=== PATIENT | male | born 1960 | race Caucasian/White ===

== ENCOUNTER → 2019-11-13 09:04 | Outpatient (CLI) | payer BC, SELFPAY ==
--- NOTE | ~2019-11-13 | CT_ITS ---
EXAMINATION: CT abdomen pelvis wo con DATE: 11/13/2019 09:17 INDICATION: Intra-abdominal and pelvic swelling, mass, and lump, unspecified. TECHNIQUE: Computed tomography (CT) of the abdomen and pelvis was performed without intravenous contr ast. Automated exposure control and iterative reconstruction technique were employed. The dose-length product was 1129.17 mGy-cm. COMPARISON: None. FINDINGS: The visualized portions of the lung bases demonstrate minimal atelectasis. There is a 4 mm nodule in lingula, likely benign. No pleural effusion. The heart size is normal. No pericardial effus ion. The liver is normal. There is a calcification in the spleen, consistent with old granulomatous d isease. There are gallstones in the gallbladder, which is normal in size. There are changes of gastri c bypass procedure. The pancreas, adrenal glands, and right kidney are normal. There is a 3.9 cm cyst in left kidney. There is no urolithiasis. There is diffuse bladder wall thickening, likely secondary to chronic outlet obstruction from the severely enlarged prostate. There is diverticulosis of the co frank without evidence of diverticulitis. There are no dilated loops of bowel. There are no pathologica lly enlarged lymph nodes. There is prominent fat in the inguinal canals that may be small hernias. Th ere is no free intraperitoneal fluid. There is moderate thoracic spondylosis and mild lumbar spondylo sis. IMPRESSION: 1. Prominent fat in the inguinal canals, which may be small hernias. 2. Cholelithiasis. Reviewed, dictated and finalized at location A.
== END ==
PROVIDERS: PCP Internal Medicine; Visit Provider Surgery Plastic and Reconstructive Surgery
DX: R19.00 Intra-abdominal and pelvic swelling, mass and lump, unspecified site (principal); K80.20 Calculus of gallbladder without cholecystitis without obstruction
CPT/HCPCS: 74176

== ENCOUNTER 2020-01-06 08:20 | Outpatient (CLI) | payer OTHER, SELFPAY ==
--- NOTE | 2020-01-06 08:25 | ECG_ITS ---
Measurements Intervals [place] Rate: 56 P: 30 HI: 162 QRS: 3 QRSD: 85 T: 42 QT: 422 QTc: 409 Interpretive Statements SINUS BRADYCARDIA BORDERLINE R WAVE PROGRESSION, ANTERIOR LEADS BORDERLINE ECG Electronically Signed On 01-06-2020 9:49:51 CUSTOMER DEVELOPMENT REPRESENTATIVE by Greyson Hicks D.O.
[2020-01-06 09:07] LABS: Hematocrit 44.9 % (42.0-52.0); Hemoglobin 14.6 g/dL (14.0-18.0)
[2020-01-06 09:15] LABS: Albumin Level 4.6 g/dL (3.5-5.1)
[2020-01-06 09:41] LABS: Iron 90 ug/dL (49-181)
[2020-01-06 09:51] LABS: Prealbumin 27.7 mg/dL (17.6-36.0)
== END 2020-01-06 08:21 | disposition home or self-care (01) ==
LOC: ANHSURGERY 08:25
PROVIDERS: Anesthesiology; PCP Internal Medicine; Visit Provider Surgery Plastic and Reconstructive Surgery
DX: Z01.818 Encounter for other preprocedural examination (principal); Z41.1 Encounter for cosmetic surgery
CPT/HCPCS: 36415; 82040; 83540; 84134; 84425; 85014; 85018; 93005

== ENCOUNTER 2020-01-10 01:25 | Outpatient (CLI) | payer OTHER, SELFPAY ==
[2020-01-11 14:16] LABS: SARS-CoV-2 RNA PCR Negative
== END 2020-01-10 01:26 | disposition home or self-care (01) ==
LOC: ANHCOVIDDT 01:25
PROVIDERS: PCP Internal Medicine; Visit Provider Surgery Plastic and Reconstructive Surgery
DX: Z01.818 Encounter for other preprocedural examination (principal); Z20.828 Contact with and (suspected) exposure to other viral communicable diseases
CPT/HCPCS: 87635; C9803; U0003

== ENCOUNTER 2020-01-13 00:44 | Day surgery (SDC) | payer OTHER, SELFPAY ==
[2019-12-31 15:38] VITALS: BMI 27.9
[2020-01-13] VITALS (9 sets, daily range): BP systolic 119–178; BP diastolic 67–88; PULSE 58–81; RESP 13–18; TEMP 36.2–36.4; O2SAT 99–100
[2020-01-13] MEDS: LACTATED RINGERS 1,000 ML 30 ML IV CONT ×2 (07:20→15:52)
[2020-01-13 07:27] LABS: Urine Cotinine NEGATIVE
--- NOTE | 2020-01-13 08:50 | WPDHPUPDATE1 ---
History and Physical Update Update Date/Time: 01/13/20 08:50 History and Physical has been reviewed, including an updated exam of the patient. There are NO changes in the patient's condition. Risks, benefits, and alternatives have been discussed and questions answered. Patient agrees to proceed with procedure.
--- NOTE | 2020-01-13 08:56 | WPDANESEPPF ---
Anes - Initial Pre Proc Eval Procedure: Operation Date: 01/13/20 09:00 Proposed Procedures p Bilateral Brachioplasty - Eric Macdonald MD s Bilateral Treatment of Gynecomastia - Eric Macdonald MD s Chana-De- Lis Abdominoplasty - Eric Macdonald MD Date/Time: 01/13/20 08:56 Surgeon: Eric Macdonald MD Pre Op Diagnosis: Skin Laxity, Patient Data Age: 59 Gender: M Height: 6 ft 5 in Weight: 108.7 kg Last Vital Signs Temp 97.6 F 01/13/20 07:07 Pulse 58 L 01/13/20 07:07 Resp 18 01/13/20 07:07 BP 119/75 01/13/20 07:07 Pulse Ox 100 01/13/20 07:07 Allergies Allergy/AdvReac Type Severity Reaction Status Date / Time No Known Allergies Allergy Verified 01/13/20 07:27 Home Medications Medication Instructions Recorded Confirmed Type sertraline 100 mg tablet 100 mg PO DAILY 11/05/19 01/13/20 History carisoprodol 350 mg tablet 350 mg PO TID PRN #21 tablet 12/30/19 01/13/20 Rx docusate sodium 100 mg capsule 100 mg PO DAILY #14 cap 12/30/19 01/13/20 Rx ondansetron HCl 4 mg tablet 4 mg PO Q8H #28 tablet 12/30/19 01/13/20 Rx oxycodone-acetaminophen 5 mg-325 1 tablet PO Q6H PRN #15 tablet 12/30/19 01/13/20 Rx mg tablet Laboratory Tests 01/13/20 07:12 Cotinine Negative Patient hx anesthesia problems: none Family hx anesthesia problems: none ON LICENSE OF [facility] Past Medical History Medical History Anxiety Sleep apnea Surgical History Surgical History History of gastric bypass Social History Social History Smoking status: Never smoker Alcohol intake: current Substance use: never Living arrangements: alone Gender identity (if verbalized by the patient): Male Sexual Orientation (if Verbalized by the Patient): Straight or Heterosexual Spiritual care concerns: No Anes - Eval Final PreProcedure Day of Procedure 01/13/20 08:56 Patient weight: overweight Heart: regular rate and rhythm Lungs: clear to auscultation Airway: Mallampati scale class II Neurological: alert and oriented Last oral intake: >/= 8 hours ASA classification: III Emergent: no Anesthetic plan: proceed Anesthesia type and monitoring: general ETT and standard monitoring Informed Consent: The patient's anesthetic plan and its attendant risks and benefits were discussed with the patient/family/POA. Questions were solicited and answers provided to the satisfaction of the patient/family/POA.
--- NOTE | 2020-01-13 09:10 | PM.PROC ---
Procedure Note - Detailed Date of procedure: 01/13/20 Pre-op diagnosis: Skin Laxity, Post-op diagnosis: same Procedure performed: 1. Bilateral Brachioplasty 2. Bilateral Mastectomy for gynecomastia / thoracoplasty boomerang pattern 3. Sqoxj-of-wln abdominoplasty Description of procedure: Risks, benefits, alternatives were discussed in extensive detail. I want him to be very realistic about the risks involved as well as expectations. He would like proceed in go home rather than stay overnight. We discussed the care at home. We discussed what monitor for. We discussed that he can call with any questions or concerns and went to proceed to the emergency room/ dial 911. We discussed DVT prophylaxis and he would like to use ambulation at home. This was outlined extensively to make sure he was well informed. All questions were answered to his satisfaction today. Consent obtained. He was marked in the preoperative holding area. He did pass out during the markings however had no fall we were able to gently control him to the ground. We were able condition he felt well following this event. Was taken to the operating room placed supine on the operating room table. Anesthesia provided by anesthesiology and prepped and draped in a standard sterile fashion. Surgical time-out was taken. I proceeded with the arms 1st. Stab incision was made. I used tumescent solution. Using a 4 mm basket cannula completed suction lipectomy of the planned resection. Ten blade was used to make the incision in a strip avulsion technique from proximal to distal and removed the tissue stapling as we went to make sure tension-free closure. This was closed using 2-0 Vicryl followed by 3-0 strata fix and 3-0 chromic. We then proceeded the chest. This was tumesced with tumescent solution after making stab incisions 11 blade. I verified this would close tension-free. Ten blade used to make incision. The complete in you dissection removing this intervening tissue. Discontinuing the undermined inferiorly just what was necessary for closure. Lateral chest has some space so bilateral 15 ying drains were placed and sutured into place with 4-0 Nylon. This was closed using 2-0 Vicryl followed by 3-0 strata fix in a running subcuticular 4-0 Monocryl. I placed him in a flexed position to verify the upper and lower markings would reach. I then placed supine. A thorough abdominal examination was completed. Stab incisions were made and used tumescent solution. A 10 blade was used to make the upper incision as well as vertical incision. I continued dissection down to the level of fascia. No undermining was needed or completed. I then again flexed the bed to verify the upper skin flap would reach the lower markings without tension. Once verified I placed supine once again and a 10 blade used to make the lower incision. I elevated up to level the umbilicus and left the umbilicus intact on a well-vascularized stalk. The intervening tissue was removed. A 2 mm blunt cannula and Exparel which was mixed 20 cc in 100 cc for a total volume of 120 cc I injected deep to the fascia bilaterally as well as along the incision lines. I plicated the diastasis recti using 0 PDO stratafix barbed suture. This was in 2 separate layers using 2 separate sutures as well. I repaired around the umbilicus leaving plenty of room for well-vascularized stalk of the umbilicus with 2-0 PDS. The patient was flexed and starting from superior to inferior began plication using 2-0 Vicryl to obliterate all space in a standard progressive tension fashion. At the umbilicus I marked out the location of the skin and inset this with 3-0 Monocryl and 4-0 nylon. I continued the remainder of the plication using 2-0 Vicryl until I reached my lower planned scar line. I trimmed any excess skin of the upper flap making sure this was a tension-free closure. I then approximated using a 3 point suture with 2-0 Vicryl followed by
[2020-01-13] MEDS: ceFAZolin 2 GM/D5W 50 ML 2 GM/50 ML BAG IVPB (09:13)
--- NOTE | 2020-01-13 10:45 | SUR.OPER ---
Consult to Radiologist Dr Russell per Dr Macdonald to review abdominal CT scan of 11-13-[address] Macdonald request prior to start. Consult via direct telephone. Consult at [phone].
[2020-01-13] MEDS: ceFAZolin SODIUM 1 GM VIAL IV PUSH (13:15)
[2020-01-13] MEDS: oxyCODONE HCL (*CRX) 5 MG TAB IR PO (16:44)
== END 2020-01-13 18:18 | disposition home or self-care (01) ==
PROVIDERS: PCP Internal Medicine; Visit Provider Surgery Plastic and Reconstructive Surgery
PROC: (CPT 15836; principal; 2020-01-13 09:00)
PROC: (CPT 19300; 2020-01-13 09:00)
PROC: (CPT 15830; 2020-01-13 09:00)
DX: Z41.1 Encounter for cosmetic surgery (principal); L57.4 Cutis laxa senilis; F41.9 Anxiety disorder, unspecified; G47.30 Sleep apnea, unspecified; Z79.899 Other long term (current) drug therapy
CPT/HCPCS: 15830; 15847; 15836; 19300; 80307; A9270; C9290; J0171; J0330; J0690; J1100; J1170; J2250; J2370; J2405; J2704; J2710; J3010; J7120

== ENCOUNTER → 2020-04-17 01:12 | Outpatient (CLI) | payer OTHER, SELFPAY ==
[2020-04-17 19:42] LABS: SARS-CoV-2 RNA PCR Negative
== END ==
PROVIDERS: PCP Internal Medicine; Visit Provider Surgery Plastic and Reconstructive Surgery
DX: Z01.812 Encounter for preprocedural laboratory examination (principal); Z20.822 Contact with and (suspected) exposure to COVID-19
CPT/HCPCS: C9803; U0003; U0005

== ENCOUNTER 2020-04-20 01:11 | Day surgery (SDC) | payer OTHER, SELFPAY ==
[2020-04-12 15:49] VITALS: BMI 27.9
--- NOTE | 2020-04-19 11:52 | WPDANESEPPF ---
Anes - Initial Pre Proc Eval Procedure: Operation Date: 04/20/20 08:30 Proposed Procedures p Posterior Body Lift - Eric Macdonald MD s Medial Thigh Lift - Eric Macdonald MD Date/Time: 04/19/20 11:52 Surgeon: Eric Macdonald MD Pre Op Diagnosis: Skin Laxity Patient Data Age: 59 Gender: M Height: 6 ft 5 in Weight: 107 kg Allergies Allergy/AdvReac Type Severity Reaction Status Date / Time No Known Allergies Allergy Verified 03/01/20 13:06 Home Medications Medication Instructions Recorded Confirmed Type sertraline 100 mg tablet 100 mg PO DAILY 11/05/19 04/20/20 History docusate sodium 100 mg capsule 100 mg PO DAILY #14 cap 03/29/20 04/12/20 Rx ondansetron HCl 4 mg tablet 4 mg PO Q8H #28 tablet 03/29/20 04/12/20 Rx oxycodone-acetaminophen 5 mg-325 1 tablet PO Q6H PRN #15 tablet 03/29/20 04/12/20 Rx mg tablet tamsulosin 0.4 mg PO DAILY 04/12/20 04/20/20 History Patient hx anesthesia problems: none Family hx anesthesia problems: none [facility] Past Medical History Medical History Anxiety Sleep apnea Surgical History Surgical History History of gastric bypass Social History Social History Smoking status: Never smoker Alcohol intake: current Substance use: never Living arrangements: alone Gender identity (if verbalized by the patient): Male Sexual Orientation (if Verbalized by the Patient): Straight or Heterosexual Spiritual care concerns: No Anes - Eval Final PreProcedure Day of Procedure 04/19/20 11:52 Patient weight: overweight Heart: regular rate and rhythm Lungs: clear to auscultation Airway: Mallampati scale class III Neurological: alert and oriented Last oral intake: >/= 8 hours ASA classification: III Emergent: no Anesthetic plan: proceed Anesthesia type and monitoring: general ETT and standard monitoring Informed Consent: The patient's anesthetic plan and its attendant risks and benefits were discussed with the patient/family/POA. Questions were solicited and answers provided to the satisfaction of the patient/family/POA.
[2020-04-20] VITALS (10 sets, daily range): BP systolic 118–139; BP diastolic 73–91; PULSE 67–90; RESP 14–20; TEMP 36.2–37.2; O2SAT 97–100
--- NOTE | 2020-04-20 06:51 | WPDHPUPDATE1 ---
History and Physical Update Update Date/Time: 04/20/20 06:51 History and Physical has been reviewed, including an updated exam of the patient. There are NO changes in the patient's condition. Risks, benefits, and alternatives have been discussed and questions answered. Patient agrees to proceed with procedure.
--- NOTE | 2020-04-20 07:11 | PM.PROC ---
Procedure Note - Detailed Date of procedure: 04/20/20 Pre-op diagnosis: Skin Laxity Post-op diagnosis: same Procedure performed: 1. Bilateral medial thigh lift 2. Posterior body lift Description of procedure: Preoperatively the risks, benefits, alternatives were discussed. All questions answered to his satisfaction. I explained previous success does not guarantee future success. This is unique procedure with unique risks and unique outcomes. Consent obtained. He was marked in the preoperative holding area with his verification. He was taken the operating room placed supine on the operating room table. Anesthesia provided by anesthesiology and prepped and draped in a standard sterile fashion. Surgical time-out was taken. He was placed in frog-leg position. I tumesced with a tumescent solution waited for adequate time for hemostasis. Using suction lipectomy based on S.A.F.E. technique using a 4 mm basket cannula I completed suction lipectomy of the planned resection site. This was a strip avulsion technique. This was cut as you go stapling as we will. It was closed using 2-0 Vicryl followed by 3-0 strata fix followed by running subcuticular 4-0 Monocryl and Steri-Strips. Dressings were placed. He was placed in a prone position with care taken to protect all bony prominences. I tumesced with tumescent solution. Used 4mm basket cannula for discontinuous undermining. A 10 blade used to make the upper incision. Dissection was continued down and elevated just was necessary in order to provide good tension-free closure. I did leave volume over the gluteal region trying to maximize his gluteal volume. I obliterate all space using 2-0 Vicryl this is followed by 3-0 strata fix in a running subcuticular 4-0 Monocryl and tissue glue. Dressings were placed. She was woken taken the PACU without difficulty. All instrument sponge counts were correct at the end of the case. Anesthesia: GETA Surgeon: Eric Macdonald MD Estimated blood loss (mL): 100 Drains: No Packing: No Pathology: none sent Complications: No immediate complications Condition: stable Disposition: PACU
[2020-04-20] MEDS: LACTATED RINGERS 1,000 ML 30 ML IV CONT ×2 (07:33→14:57)
[2020-04-20 07:37] LABS: Urine Cotinine NEGATIVE
[2020-04-20] MEDS: ceFAZolin 2 GM/D5W 50 ML 2 GM/50 ML BAG IVPB (08:46)
[2020-04-20] MEDS: ceFAZolin SODIUM 1 GM VIAL IV PUSH (13:57)
--- NOTE | 2020-04-20 14:17 | SUR.OPER ---
EBL:50cc, urine:1400cc
== END 2020-04-20 17:40 | disposition home or self-care (01) ==
PROVIDERS: PCP Internal Medicine; Visit Provider Surgery Plastic and Reconstructive Surgery
PROC: (CPT 15833; principal; 2020-04-20 08:30)
PROC: (CPT 15832; 2020-04-20 08:30)
DX: Z41.1 Encounter for cosmetic surgery (principal); L57.4 Cutis laxa senilis; F41.9 Anxiety disorder, unspecified; G47.30 Sleep apnea, unspecified; Z79.899 Other long term (current) drug therapy; Z98.84 Bariatric surgery status
CPT/HCPCS: 15833; 15839; 80307; J0171; J0330; J0690; J1100; J1170; J2250; J2405; J2704; J3010; J7120

== ENCOUNTER 2020-11-05 01:53 | Day surgery (SDC) | payer BC, SELFPAY ==
[2020-10-27 13:59] VITALS: BMI 29.7
[2020-11-05 08:58] VITALS: BP 123/83; PULSE 62; RESP 18; TEMP 36.6; O2SAT 99; BMI 30.2
--- NOTE | 2020-11-05 09:06 | P.CONGI_ITS ---
Assessment and Plan Assessment and plan (1) Encounter for screening colonoscopy: Code(s): Z12.11 - Encounter for screening for malignant neoplasm of colon Status: Acute Assessment and Plan: Patient presents for screening colonoscopy. Appears to be at average risk for colon polyps. GI Consult Note Consult date/time: 11/05/20 09:06 HPI: Donnie Cates Jr. is a 60 year old male Presents for neoplasia screening. Patient reports his current weight appetite bowel movements are norm al. He denies abdominal pain. Bowel habits are unremarkable. He does a spot occasional blood. He reports previous colonoscopy more than 10 years ago revealed Internal hemorrhoids. Family history is noncontributory. Patient presents today for screening colonoscopy. Patient has a history of gastric bypass weight loss surgery in the past. He has had significant weight loss had several surgeries to tightness scan. Review of Systems Review of Systems: All systems reviewed & are unremarkable except as noted in HPI and below PMFSH Past Medical History Medical History Anxiety Sleep apnea Surgical History Surgical History History of gastric bypass Social History Social History Smoking status: Never smoker Alcohol intake: current Drinks per week: 2 Substance use: never Substance use type: does not use Living arrangements: with family Gender identity (if verbalized by the patient): Male Sexual Orientation (if Verbalized by the Patient): Straight or Heterosexual Spiritual care concerns: No Meds Home Medications and Allergies Home Medications Medication Instructions Recorded Confirmed Type sertraline 100 mg tablet 100 mg PO DAILY 11/05/19 10/27/20 History tamsulosin 0.4 mg PO DAILY 04/12/20 10/27/20 History ferrous sulfate 27 mg PO DAILY 10/27/20 10/27/20 History omeprazole 40 mg PO DAILY 10/27/20 10/27/20 History Allergies Allergy/AdvReac Type Severity Reaction Status Date / Time No Known Allergies Allergy Verified 11/05/20 08:57 Vital Signs Vital Signs - 24 hr 11/05/20 08:58 Temperature 98 F Pulse Rate 62 Respiratory Rate 18 Blood Pressure 123/83 Pulse Oximetry 99 Exam Narrative: p hysical exam reveals patient be alert. Vital signs are stable. HEENT exam is unremarkable. Patient is anicteric. Lungs are clear to auscultation and percussion. Heart is without murmur or extra sounds. Abdominal exam bowel sounds are present soft nontender with no organomegaly. Digital external rectal exam is normal.
--- NOTE | 2020-11-05 09:11 | WPDANESEPPF ---
Anes - Initial Pre Proc Eval Procedure: Operation Date: 11/05/20 10:00 Proposed Procedures p Screening Colonoscopy - Amari Ramos MD Date/Time: 11/05/20 09:11 Surgeon: Amari Ramos MD Pre Op Diagnosis: neoplasm screening Patient Data Age: 60 Gender: M Height: 1.96 m Weight: 115.4 kg Last Vital Signs Temp 98 F 11/05/20 08:58 Pulse 62 11/05/20 08:58 Resp 18 11/05/20 08:58 BP 123/83 11/05/20 08:58 Pulse Ox 99 11/05/20 08:58 Allergies Allergy/AdvReac Type Severity Reaction Status Date / Time No Known Allergies Allergy Verified 11/05/20 08:57 Home Medications Medication Instructions Recorded Confirmed Type sertraline 100 mg tablet 100 mg PO DAILY 11/05/19 10/27/20 History tamsulosin 0.4 mg PO DAILY 04/12/20 10/27/20 History ferrous sulfate 27 mg PO DAILY 10/27/20 10/27/20 History omeprazole 40 mg PO DAILY 10/27/20 10/27/20 History Patient hx anesthesia problems: none Family hx anesthesia problems: none [facility] Past Medical History Medical History Anxiety Sleep apnea Surgical History Surgical History History of gastric bypass Social History Social History Smoking status: Never smoker Alcohol intake: current Drinks per week: 2 Substance use: never Substance use type: does not use Living arrangements: with family Gender identity (if verbalized by the patient): Male Sexual Orientation (if Verbalized by the Patient): Straight or Heterosexual Spiritual care concerns: No Anes - Eval Final PreProcedure Day of Procedure 11/05/20 09:11 Patient weight: obese Heart: regular rate and rhythm Lungs: clear to auscultation Airway: Mallampati scale class II Neurological: alert and oriented Last oral intake: >/= 8 hours ASA classification: III Emergent: no Anesthetic plan: proceed Anesthesia type and monitoring: general GIVS and standard monitoring Informed Consent: The patient's anesthetic plan and its attendant risks and benefits were discussed with the patient/family/POA. Questions were solicited and answers provided to the satisfaction of the patient/family/POA.
[2020-11-05] MEDS: LACTATED RINGERS 1,000 ML 150 ML IV CONT (09:15)
[2020-11-05 10:15] VITALS: BP 107/60; PULSE 88; RESP 18; O2SAT 99
[2020-11-05 10:25] VITALS: BP 118/79; PULSE 64; RESP 18; O2SAT 99
[2020-11-05 10:35] VITALS: BP 115/76; PULSE 61; RESP 18; O2SAT 99
== END 2020-11-05 10:50 | disposition home or self-care (01) ==
PROVIDERS: PCP Internal Medicine; Visit Provider Internal Medicine Gastroenterology
PROC: 0DJD8ZZ Inspection of Lower Intestinal Tract, Via Natural or Artificial Opening Endoscopic (ICD-10-PCS; CPT 45378; principal; 2020-11-05 10:00)
DX: Z12.11 Encounter for screening for malignant neoplasm of colon (principal); G47.30 Sleep apnea, unspecified; F41.9 Anxiety disorder, unspecified; Z98.84 Bariatric surgery status; E66.9 Obesity, unspecified; Z68.30 Body mass index [BMI] 30.0-30.9, adult
CPT/HCPCS: 45378; J2001; J2704; J7120

== ENCOUNTER 2024-07-04 07:14 | Emergency (ER) | payer OTHER, SELFPAY ==
--- NOTE | ~2024-07-04 | CT_ITS ---
EXAMINATION: CT abdomen pelvis w con DATE: 07/04/2024 08:08 INDICATION: Epigastric pain TECHNIQUE: Computed tomography (CT) of the abdomen and pelvis was performed with 100 mL Omnipaque-350 intravenous contrast. Automated exposure control and iterative reconstruction technique were employe d. The dose-length product was 1830.09 mGy-cm. COMPARISON: None FINDINGS: Dependent atelectasis in bilateral lower lobes. Heart size is normal. Atherosclerotic coronary artery calcification. No pericardial or pleural effusion. Postoperative change of prior Brendan-en-Y gastric b ypass procedure. There are multiple gallstones at the neck of the gallbladder. The gallbladder is dil ated to 6.4 cm with surrounding inflammatory stranding consistent with acute cholecystitis. Liver, sp hector, pancreas, bilateral adrenal glands are normal. 3.5 cm exophytic left renal cyst. Bilateral nono bstructing nephrolithiasis with couple's 4-5 mm stones at the lower pole of the left kidney and a 2 m m stone at the upper pole of the right kidney. There is extensive diverticulosis along the colon with out adjacent inflammatory stranding to suggest diverticulitis. Small bowel and appendix are normal. T here are a couple 3-4 mm bladder stones. Prostatomegaly measuring 6.8 x 5.0 cm. No free intraperitone al gas or fluid. No pathologically enlarged abdominal or pelvic lymphadenopathy. Mild lumbar and mild to moderate lower thoracic spondylosis. IMPRESSION: 1. Cholelithiasis and acute cholecystitis. 2. Bilateral nonobstructing nephrolithiasis. 3. Extensive diverticulosis. 4. Prostatomegaly. Reviewed, dictated and finalized at location A.
--- OUTSIDE RECORDS SUMMARY | 2024-07-04 07:17 | XMS_ITS | Clinical Summary ---
Author Organization [facility] Address [address] [place] [address] Care Team Providers Care Garnett Machine Operator Helper Name Role Phone Junior Lema MD Primary Care Provider [phone] Source Comments [facility],non-owned Affiliates and Associated Physician Practices is amultiple site organization consisting of ambulatory clinics and hospital sitesin [place], [place], [place] and [place]. This disclosure is being madepursuant to the Care Everywhere program and may not contain all information available regarding this patient. Last updated 17.[facility] Allergies No known active allergies Medications * Be aware that medications may not be up to date on this document. Alwaysverify current medications with the patient. sertraline (ZOLOFT) 100 MG tablet Take 100 mg by mouth once daily 1 9 Active tadalafil (CIALIS) 20 MG tablet Take 20 mg by mouth once daily as needed 0 9 Active [id number] INERALS (RESOURCE OPTISOURCE MUTLIPLE VITAMIN WITH MINERALS) CHEW Take 1 tablet by mouth once daily Active magnesium hydroxide (MILK OF MAGNESIA) 400 MG/5ML suspension Take 15 mL by mouth once daily 9 Active omeprazole EC (PRILOSEC OTC) 20 MG tablet Take 20 mg by mouth daily before breakfast Active Active Problems Problem Noted Date Diagnosed Date S/P gastric bypass 11/27/2018 Morbid obesity 11/27/2018 Hiatal hernia 11/27/2018 Family History Medical History Relation Name Comments CAD (Coronary Artery Disease) Mother Cancer - Lung Mother Diabetes - Type 2 Mother Hypertension Mother CVA Paternal Grandfather Hypertension Sister Relation Name Status Comments Mother Paternal Grandfather Sister Social History Tobacco Use Types Packs/Day Years Used Date Smoking Tobacco: Never Smokeless Tobacco: Never Alcohol Use Standard Drinks/Week Comments Yes 0 (1 standard drink = 0.6 oz pur e alcohol) rare Sex and Gender Information Value Date Recorded Sex Assigned at Not on file Legal Sex 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 Gender Identity Not on file Sexual Orientation Not on file Last Filed Vital Signs Vital Sign Reading Time Taken Comments Blood Pressure 112/70 12/30/2018 9:02 AM ELECTRICIAN SUBSTATION SUPERVISOR Pulse 78 12/30/2018 9:02 AM ELECTRICIAN SUBSTATION SUPERVISOR Temperature 36.8 C (98.2 F) 11/28/2018 3:29 PM CDT Respiratory Rate 18 11/28/2018 3:29 PM CDT Oxygen Saturation 97% 11/28/2018 3:29 PM CDT Inhaled Oxygen Concentration - - Weight 106.6 kg (235 lb) 12/15/2019 1:33 PM CDT Height 195.6 cm (6' 5 ) 12/15/2019 1:33 PM CDT Body Mass Index 27.87 12/15/2019 1:33 PM CDT Plan of Treatment Health Maintenance Due Date Last Done Comments COLOGUARD (AGES 45-75) - COLON CA SCREENING 1962 COLON MONITORING 1962 COLONOSCOPY - COLON CA SCREENING 1962 CT COLONOGRAPHY - COLON CA SCREENING 1962 Colorectal Cancer Screening 1962 FIT - COLON CA SCREENING 1962 FLEX SIG - COLON CA SCREENING 1962 LIPID TESTING 1962 HIV SCREENING 1977 HEPATITIS C SCREENING 05/05/1980 DTAP/TDAP/TD VACCINES (1 - Tdap) 1981 PNEUMOCOCCAL VACCINE 50+ (1 of 1 - PCV) 2012 ZOSTER VACCINE (1 of 2) 2012 SCREENING FOR DIABETES 11/28/2021 9, 11/28/2018, 11/28/2018, Additional history exists COVID-19 VACCINE ( - 2023- season) 2023 DEPRESSION SCREENING 02/20/2024 INFLUENZA VACCINE (Season Ended) 2024 Respiratory Syncytial Virus (RSV) Vaccine Pt: or over 60 yrs (1 - 1-dose 75+ series) 2037 HEPATITIS B VACCINE Aged Out No longe r eligible based on patient's age to complete this topic HIB VACCINE Aged Out No longer eligi ble based on patient's age to complete this topic HPV VACCINE Aged Out No longer eligi ble based on patient's age to complete this topic MENINGOCOCCAL (Group B) VACCINE SHARED DECISION-MAKING Aged Out No longer eligible based on patient's age to complete this topic MENINGOCOCCAL GROUPS A/C/Y/W VACCINE Aged Out No longer eligible based on patient's age to complete this topic Procedures Procedure Name Priority Date/Time Associated Diagnosis Comments BASIC METABOLIC PANEL (CALCIUM TOTAL) AM Draw 11/28/2018 3:49 AM CDT from Last 3 Months or Most Recently Relevant to Health Maintenance Results * BASIC METABOLIC PANEL (CALCIUM TOTAL) (11/28/2018 3:49 AM CDT) Glucose 93 74 - 106 mg/dL 11/28/2018 5:17 AM CDT [facility] Sodium 137 136 - 145 mmol/L 11/28/2018 5:17 AM CDT [facility] Potassium 4.2 3.5 - 5.1 mmol/L 11/28/2018 5:17 AM CDT [facility] Chloride 100 98 - 107 mmol/L 11/28/2018 5:17 AM CDT [facility] CO2 28 23 - 31 mmol/L 11/28/2018 5:17 AM CDT [facility] Calcium 8.8 8.4 - 10.2 mg/dL 11/28/2018 5:17 AM CDT [facility] Anion Gap 9 8 - 16 mmol/L 11/28/2018 5:17 AM CDT [facility] BUN 16 8.4 - 25.7 mg/dL 11/28/2018 5:17 AM CDT [facility] Creatinine 0.75 0.72 - 1.25 mg/dL 11/28/2018 5:17 AM CDT [facility] eGFR by MDRD >60 >60 mL/min/1.7 3m2 11/28/2018 5:17 AM CDT [facility] eGFR by MDRD >60 >60 mL/min/1.7 3m2 11/28/2018 5:17 AM CDT [facility] Blood BLOOD SPECIMEN / Unknown Venipuncture / Unknown 11/28/2018 3:49 AM CDT 11/28/2018 4:05 AM CDT us Raghav Santos MD LAB - CHEMISTRY ORDERABLES Fi nal Result [facility] [address] [place] [address] from Last 3 Months or Most Recently Relevant to Health Maintenance Insurance [facility] Advance Directives * Full Code (Latest Code Status on File) Date Activated Date Inactivated Comments 11/27/2018 5:05 PM 11/28/2018 7:39 PM Care Teams Garnett Machine Operator Helper Relationship Specialty Start Date End Date Junior Lema MD [address] [place] [address] PCP - General Internal Medicine 06/26/18
--- OUTSIDE RECORDS SUMMARY | 2024-07-04 07:17 | XMS_ITS | Clinical Summary ---
Author Organization [facility] Address [address] [place] [id number] Care Team Providers Care Certified Driver Examiner Name Role Phone Junior Lema MD Primary Care Provider [phone] Allergies No known active allergies Medications buPROPion XL (WELLBUTRIN XL) 150 MG 24 hr tablet Take 1 tablet (150 mg total) by mouth daily. 03/26/2023 Active losartan (COZAAR) 25 MG tablet Take 1 tablet (25 mg total) by mouth daily. 04/24/2023 Active sertraline (ZOLOFT) 100 MG tablet Take 1 tablet (100 mg total) by mouth daily. 06/20/2021 Active tamsulosin (FLOMAX) 0.4 MG Cap Take 1 capsule (0.4 mg total) by mouth nightly. 06/24/2020 Active omeprazole (PRILOSEC) 20 MG capsule Take 1 capsule (20 mg total) by mouth daily. Active Active Problems Problem Noted Date Diagnosed Date Hiatal hernia 11/27/2018 S/P gastric bypass 11/27/2018 Morbid obesity 11/27/2018 Family History Medical History Relation Comments Heart Attack Maternal Grandfather Stroke Paternal Grandfather Relation Status Comments Father (Age 79) Maternal Grandfather (Age 84) Maternal Grandmother Mother (Age 78) Paternal Grandfather (Age 64) Paternal Grandmother Sister 1 Alive Sister 2 Alive Social History Tobacco Use Types Packs/Day Years Used Date Smoking Tobacco: Never Smokeless Tobacco: Never Tobacco Cessation:Counseling Given: Not Answered Alcohol Use Standard Drinks/Week Comments Yes 0 (1 standard drink = 0.6 oz pur e alcohol) 1-2 a month Sex and Gender Information Value Date Recorded Sex Assigned at Not on file Legal Sex Male 6:23 PM CDT Gender Identity Not on file Sexual Orientation Not on file 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 Not on file Not on file Not on f ile Last Filed Vital Signs Vital Sign Reading Time Taken Comments Blood Pressure 128/86 08/02/2023 11:25 AM CDT Pulse 79 08/02/2023 11:25 AM CDT Temperature - - Respiratory Rate - - Oxygen Saturation 97% 08/02/2023 11:25 AM CDT Inhaled Oxygen Concentration - - Weight 155.6 kg (343 lb) 08/02/2023 11:25 AM CDT Height 195.6 cm (6' 5 ) 08/02/2023 11:25 AM CDT Body Mass Index 40.67 08/02/2023 11:25 AM CDT Plan of Treatment Upcoming Encounters Date Type Department Care Team (Late st Contact Info) Description 08/07/2024 12:15 PM CDT Office Visit [facility], [address] [place], [place] [phone] Cydney Hernandez MD [facility] [address] [place], [place] [id number] Health Maintenance Due Date Last Done Comments Colorectal Cancer Screening Colonoscopy (10 Years) 1962 Annual Physical 1965 Hepatitis C 1980 DTaP, Tdap and Td Vaccines ( 1 - Tdap) 1981 Pneumococcal Vaccine: 50+ Ye ars (1 of 1 - PCV) 2012 Zoster Vaccines (1 of 2) 2012 RSV Immunization or 60+ Years (1 - Risk 60-74 years 1-dose series) 2022 COVID-19 Vaccine (1 - 2023-2 5 season) 2023 PHQ-2 (Physician [place]) 02/20/2024 Meningococcal B Vaccine Aged Out No l onger eligible based on patient's age to complete this topic Meningococcal Vaccine Aged Out No frank dar eligible based on patient's age to complete this topic RSV Immunizations Under 20 Months Aged Out No longer eligible based on patient's age to complete this topic Insurance [facility] Care Teams Certified Driver Examiner Relationship Specialty Start Date End Date Junior Lema MD [address] [place] [id number] PCP - General INTERNAL MEDICINE 04/23/23
--- OUTSIDE RECORDS SUMMARY | 2024-07-04 07:17 | XMS_ITS | Continuity of Care Document ---
Author Organization [employer] [place] Address [address] [place] [address] Phone Care Team Providers Care Grades 7 8 Tutor Name Role Phone Junior Lema MD Unavailable Unavailable Allergies, Adverse Reactions, Alerts Substance Reaction Status Criticality No Known Allergies Active No Inform ation Medications Medication Instructions Dosage Effective Dates (start - stop) Status Comments SERTRALINE 100MG TABLETS TAKE 1 TABLET BY MOUTH EVERY DAY - Active LOSARTAN 25MG TABLETS TAKE 1 TABLET BY MOUTH EVERY DAY - Active BUPROPION XL 150MG TABLETS (24 H) TAKE 1 TABLET BY MOUTH EVERY DAY - Active Calcium 600 with Vitamin D3 600 mg-10 mcg (400 unit) chewable tablet take 1 chewable tablet by mouth 3 times daily - Active Flomax 0.4 mg capsule take 1 capsule by oral route every evening 0.4 MG - Active Cialis 20 mg tablet TAKE 1 TABLET BY ORAL ROUTE EVERY DAY NEEDED - Active 07-23-2019 Fax received & RF faxed back to [phone] Prilosec OTC 20 mg tablet,delayed release take 1 tablet by mouth once daily - Active Multi-Day with Iron 18 mg-400 mcg tablet take 1 tablet by oral route every day with food 1.00 tablet - Active Zoloft 100 mg tablet TAKE 1 TABLET BY MOUTH EVERY DAY - No Longer Active Procedures Procedure Date CBC, INC PLATELETS AND DIFFERENTIAL COMPREHEN METABOLIC PANEL CMP LIPID PANEL PSA, TOTAL Pt inelig neg scrn depres IMMUN ADMIN (INC PERCUTANEOUS) SINGLE, F IRST INJ INFLUENZA VIRUS VACCINE 0.5mL DOSAGE; MA ESERVATIVE FREE, IM USE PREVENTATIVE-EST: 40-64 BODY MASS INDEX DOCD SYST BP >= 140 MM HG6 IT DIAST BP >= 90 MM HG ROUTINE VENIPUNCTURE IL OFFICE [id number] BODY MASS INDEX DOCD SYST BP >= 140 MM HG6 IT DIAST BP >= 90 MM HG Pt inelig neg scrn depres IMMUN ADMIN (INC PERCUTANEOUS) SINGLE, F IRST INJ FLU VAC NO PRSV 4 TRISTIN, 0.5mL DOSAGE OFFICE [id number] BODY MASS INDEX DOCD SYST BP >= 140 MM HG6 IT DIAST BP >= 90 MM HG Pt inelig neg scrn depres PREVENTATIVE-EST: 40-64 BODY MASS INDEX DOCD SYST BP GE 130 - 139MM HG DIAST BP >= 90 MM HG CBC, INC PLATELETS AND DIFFERENTIAL COMPREHEN METABOLIC PANEL CMP 3 LIPID PANEL PSA, TOTAL BRAIN NATRIURETIC PEPTIDE (BNP) 023 ROUTINE VENIPUNCTURE IL Pt inelig neg scrn depres OFFICE [id number] BODY MASS INDEX DOCD SYST BP GE 130 - 139MM HG DIAST BP 80-89 MM HG Pt inelig neg scrn depres PREVENTATIVE-EST: 40-64 BODY MASS INDEX DOCD SYST BP >= 140 MM HG6 IT DIAST BP 80-89 MM HG CBC, INC PLATELETS AND DIFFERENTIAL COMPREHEN METABOLIC PANEL CMP 2 LIPID PANEL PSA, TOTAL ROUTINE VENIPUNCTURE Pt inelig neg scrn depres IMMUN ADMIN (INC PERCUTANEOUS) SINGLE, F IRST INJ FLU VAC NO PRSV 4 TRISTIN, 0.5mL DOSAGE OFFICE [id number] BODY MASS INDEX DOCD SYST BP >= 140 MM HG6 IT DIAST BP 80-89 MM HG PSA, TOTAL ROUTINE VENIPUNCTURE Pt inelig neg scrn depres PREVENTATIVE-EST: 40-64 BODY MASS INDEX DOCD SYST BP GE 130 - 139MM HG DIAST BP 80-89 MM HG CBC, INC PLATELETS AND DIFFERENTIAL COMPREHEN METABOLIC PANEL CMP 1 LIPID PANEL PSA, TOTAL ROUTINE VENIPUNCTURE IMMUN ADMIN (INC PERCUTANEOUS) SINGLE, F IRST INJ FLU VAC NO PRSV 4 TRISTIN, 0.5mL DOSAGE Pt inelig neg scrn depres OFFICE [id number] BODY MASS INDEX DOCD SYST BP GE 130 - 139MM HG DIAST BP < 80 MM HG PSA, TOTAL ROUTINE VENIPUNCTURE Pt inelig neg scrn depres PREVENTATIVE-EST: 40-64 BODY MASS INDEX DOCD SYST BP LT 130 MM HG DIAST BP < 80 MM HG CBC, INC PLATELETS AND DIFFERENTIAL COMPREHEN METABOLIC PANEL CMP 0 LIPID PANEL PSA, TOTAL ROUTINE VENIPUNCTURE IMMUN ADMIN (INC PERCUTANEOUS) EACH ADDT L TDAP INTRAMUSCULAR USE IMMUN ADMIN (INC PERCUTANEOUS) SINGLE, F IRST INJ FLU VAC NO PRSV 4 TRISTIN, 0.5mL DOSAGE Pt inelig neg scrn depres BASIC METABOLIC PANEL(BMP) PSA, TOTAL ROUTINE VENIPUNCTURE OFFICE [id number] BODY MASS INDEX DOCD SYST BP LT 130 MM HG DIAST BP < 80 MM HG Advance Directives Directive Yes / No Effective Date File Name No Information Encounters Encounter Description Practice Location Reason(s) For Visit Diagnoses Date Provider Providers Copied on Encounter [facility] [place], [address], [place], [place], [address] , [place] tel: [phone] [facility] No Information 5 English Pacheco. [address] [place], [place], [address] , [place]. tel: [phone] [facility] [place], [address], [place], [place], [address] , [place] tel: [phone] [facility] No Information 5 English Pacheco. [address] [place], [place], [address] , [place]. tel: [phone] [facility], [address], [place], [place], [address] , [place] tel: [phone] [facility] No Information 5 Chung [place]. [address] [facility], [address] [address], [place], [place], [address] , [place]. tel: [phone] Referring Provider: Junior Lema, [address] [place], [address] . tel:[phone] PREVENTATIVE -EST: 40-64 [facility] [place], [address], [place], [place], [address] , tel: [phone] [facility] [place] PX (chief complaint) Class 3 ObesityBody mass index [BMI] 40.0-44.9, adultEncounter for general adult medical examination without abnormal findingsProstate cancerCurrent moderate episode of major depressive disorder, unspecified whether recurrentBenign essential hypertensionOSA (obstructive sleep apnea)Screening for lipoid disordersProstate cancer screening 5 English Pacheco. [address] [place], [place], [address] , [place]. tel: [phone] Referring Provider: Junior Lema, [address] [place], [address] . tel:[phone] [employer] [place], [address], [place], [place], [address] , tel: [phone] [facility] [place] [facility] [place] No Information 4 English Pacheco. [place], [address] , [place]. tel: [phone] [facility] [place], [address], [place], [place], [address] , tel: [phone] [facility] [place] [facility] [place] No Information 4 English Pacheco. [address] [place], [place], [address] , [place]. tel: [phone] OFFICE LHCKE-GXM-JF PANDED [facility] [place], [address], [place], [place], [address] , tel: [phone] [facility] [place] angina equivalent (chief complaint) Body mass index [BMI] 40.0-44.9, adultAnginal equivalentOther fatigue 4 English Pacheco. [address] [place], [place], [address] , [place]. tel: [phone] Referring Provider: [place], [address] . tel:[phone] OFFICE FRSBP-LPO-BY TAILED [facility], [address], [place], [place], [address] , tel: [phone] [facility] chr conditions (chief complaint) Current moderate episode of major depressive disorder, unspecified whether recurrentProstate cancerBody mass index [BMI] 39.0-39.9, adultElevated blood pressure reading 3 English Pacheco. [address] [place], [place], [address] , [place]. tel: [phone] Referring Provider: Junior Lema, [place], [address] . tel:[phone] PREVENTATIVE -EST: 40-64 [facility] [place], [address], [place], [place], [address] , tel: [phone] [facility] px (chief complaint) Encounter for general adult medical examination without abnormal findingsProstate cancerCurrent moderate episode of major depressive disorder, unspecified whether recurrentBody mass index [BMI] 38.0-38.9, adultOSA (obstructive sleep apnea) 0 3 English Pacheco. [address] [place], [place], [address] , [place]. tel:[phone] Referring Provider: [place], [address] . tel:[phone] [facility], [address], [place], [place], [address] , tel: [phone] [facility] No Information 0 3 Chung [place] [place] [address], [id number] , [place]. tel: [phone] Referring Provider: [place], [address] . tel:[phone] [facility] [place], [address], [place], [place], [address] , [place] tel: [phone] [facility] Screening for lipoid disordersEncounte r for general adult medical examination without abnormal findingsProstate cancer screeningShortnes s of breath 3 English [place] [address] [place], [place], [address] , [place]. tel: [phone] Referring Provider: Junior Lema, [place], [address] . tel:[phone] [facility] [place], [address], [place], [place], [address] , [place] tel: [phone] [facility] No Information 3 English Pacheco. [address] [place], [place], [address] , [place]. tel: [phone] OFFICE LAJPH-JET-XG TAILED [facility], [address], [place], [place], [address] , [place] tel: [phone] [place] Chronic conditions (chief complaint)ch ronic conditionss (chief complaint) Body mass index [BMI] 35.0-35.9, adultCurrent moderate episode of major depressive disorder, unspecified whether recurrentProstate cancer 2 English Pachceo. [address], [address] , [place]. tel: [phone] Referring Provider: [place], [address] . tel:[phone] PREVENTATIVE -EST: 40-64 [facility], [address], [place], [place], [address] , [place] tel: [phone] [place] px (chief complaint) Encounter for general adult medical examination without abnormal findingsCurrent moderate episode of major depressive disorder, unspecified whether recurrentProstate cancerBody mass index [BMI] 34.0-34.9, adultBenign essential hypertension 2 English Pacheco. [place], [address] , [place]. tel: [phone] Referring Provider: [place], [address] . tel:[phone] [facility], [address], [place], [place], [address] , tel: [phone] [place] Screening for prostate cancerScreening for lipoid disordersElevated blood pressure readingEncounter for blood test for routine general physical examination 2 English Pacheco. [place], [place], [address] , [place]. tel:[phone] Referring Provider: [place], [address] . tel:[phone] OFFICE VIDQP-HNE-DA TAILED [facility], [address], [place], [place], [address] , tel: [phone] [facility] [place] chronic conditions (chief complaint) Body mass index [BMI] 32.0-32.9, adultProstate cancerCurrent moderate episode of major depressive disorder, unspecified whether recurrent 1 English Pacheco. [place], [address] , [place]. tel: [phone] Referring Provider: [place], [address] . tel:[phone] PREVENTATIVE -EST: 40-64 [facility], [address], [place], [place], [address] , tel: [phone] [facility] [place] px (chief complaint) Encounter for general adult medical examination without abnormal findingsBody mass index (BMI) 29.0-29.9, adultCurrent moderate episode of major depressive disorder, unspecified whether recurrentSinusiti s, unspecified chronicity, unspecified locationChronic low back pain, unspecified back pain laterality, unspecified whether sciatica presentOther chronic painProstate cancerEncounter for screening for malignant neoplasm of colon 1 English Pacheco. [place], [address] , [place]. tel: [phone] Referring Provider: [place], [address] . tel:[phone] [facility], [address], [place], [place], [address] , tel: [phone] [facility] Encounter for blood test for routine general physical examinationScreen ing for lipoid disordersScreenin g for prostate cancer 1 English Pacheco. [place], [address] , . tel:[phone] Referring Provider: [place], [address] . tel:[phone] OFFICE MAHUW-OCR-IE TAILED [facility], [address], [place], [place], [address] , tel: [phone] [place] chronic conditions (chief complaint) Body mass index (BMI) 28.0-28.9, adultProstate cancerCurrent moderate episode of major depressive disorder, unspecified whether recurrent Sep-2 - 0 English Pacheco. [address], [address] , [place]. tel:[phone] Referring Provider: [place], [address] . tel:[phone] [facility], [address], [place], [place], [address] , tel: [phone] [place] No Information Lane-0 0 English Pacheco. [place], [address] , [place]. tel:[phone] PREVENTATIVE -EST: 40-64 [facility], [address], [place], [place], [address] , tel: [phone] [place] PX (chief complaint) Encounter for general adult medical examination without abnormal findingsMorbid (severe) obesity due to excess caloriesCurrent moderate episode of major depressive disorder, unspecified whether recurrentBenign essential hypertensionBody mass index (BMI) 30.0-30.9, adultProstate cancerShoulder pain, unspecified chronicity, unspecified laterality Mar-2 0 English Pacheco. [place], [address] , [place]. tel:[phone] Referring Provider: [place], [address] . tel:[phone] [facility], [address], [place], [place], [address] , tel: [phone] [facility] Encounter for general adult medical examination without abnormal findingsScreening for lipoid disordersElevated PSABenign essential hypertension Apr- 8- 0 English John. [place], [address] , [place]. tel: [phone] Referring Provider: [place], [address] . tel:[phone] OFFICE QFXPZ-BFH-XX [facility], [address], [place], [place], [address] , tel: [phone] [facility] [place] 6 month (chief complaint) Body mass index (BMI) 37.0-37.9, adultBenign essential hypertensionMorbi d (severe) obesity due to excess caloriesProstate cancerCurrent moderate episode of major depressive disorder, unspecified whether recurrent Oct- 9 English John. [place], [address] , [place]. tel: [phone] Referring Provider: [place], [address] . tel:[phone] [facility], [address], [place], [place], [address] , [place] tel: [phone] [facility] [place] Adult general medical examinationProsta te cancerMorbid (severe) obesity due to excess caloriesCurrent moderate episode of major depressive disorder, unspecified whether recurrentBenign essential hypertensionOSA (obstructive sleep apnea)Encounter for screening for malignant neoplasm of colon 9 English John. [place], [address] , [place]. tel: [phone] Referring Provider: [place], [address] . tel:[phone] [facility], [address], [place], [place], [address] , [place] tel: [phone] [facility] [place] Prostate cancerBenign essential hypertensionScree traci for lipoid disordersAdult general medical examination 9 English John. [place], [place], [address] , [place]. tel: [phone] Referring Provider: Junior Burundian, [address] [place], [address] . tel:[phone] [facility], [address], [place], [place], [address] , tel: [phone] [facility] [place] Morbid (severe) obesity due to excess caloriesCurrent moderate episode of major depressive disorder, unspecified whether recurrentSnoring 0 9 English Pacheco[address] [place], [place], [address] , . tel: [phone] Referring Provider: [place], [address] . tel:[phone] [facility], [address], [place], [place], [address] , tel: [phone] [facility] [place] Chronic right shoulder painOther chronic pain 8 English Pacheco. [place], [address] , [place]. tel: [phone] [facility], [address], [place], [place], [address] , tel: [phone] [facility] [place] Morbid (severe) obesity due to excess caloriesHTN, goal below 130/80Prostate cancer Sep- 8 English Pacheco. [place], [address] , [place]. tel: [phone] Referring Provider: [place], [address] . tel:[phone] [facility], [address], [place], [place], [address] , tel: [phone] [facility] Encounter for general adult medical examination without abnormal findingsProstate cancerHTN, goal below 130/80Morbid (severe) obesity due to excess caloriesErectile dysfunction, unspecified erectile dysfunction typeSnoringScreen ing for malignant neoplasm of colon Apr- 8 English Pacheco. [place], [address] , [place]. tel: [phone] Referring Provider: [place], [address] . tel:[phone] [facility], [address], [place], [place], [address] , tel: [phone] [facility] [place] Body mass index (BMI) 45.0-49.9, adultMorbid (severe) obesity due to excess caloriesProstate cancerErectile dysfunction, unspecified erectile dysfunction typeHTN, goal below 130/80Screening for lipoid disorders Oct-2 7 English Pacheco[address] [place], [address] , [place]. tel: [phone] Referring Provider: [place], [address] . tel:[phone] [facility], [address], [place], [place], [address] , tel: [phone] [facility] Morbid obesity, unspecified obesity typeErectile dysfunction, unspecified erectile dysfunction typeChronic right shoulder painProstate cancerElevated blood pressure reading 7 English Pacheco. [place], [address] , [place]. tel: [phone] Referring Provider: [place], [address] . tel:[phone] [facility], [address], [place], [place], [address] , tel: [phone] [facility] [place] Screening PSA (prostate specific antigen)Elevated PSA 6 English Pacheco. [place], [address] , [place]. tel: [phone] Referring Provider: [place], [address] . tel:[phone] [facility], [address], [place], [place], [address] , tel: [phone] [facility] [place] Morbid obesity, unspecified obesity typeEncounter for general adult medical examination without abnormal findingsScreening PSA (prostate specific antigen) Oct-0 6 English Pacheco. [place], [place], [address] , [place]. tel: [phone] Referring Provider: Junior Lema, [address] [place], [address] . tel:[phone] [facility], [address], [place], [place], [address] , [place] tel: [phone] [facility] Encounter for general adult medical examination without abnormal findingsChronic right shoulder painOther chronic painErectile dysfunction, unspecified erectile dysfunction typeMorbid obesity, unspecified obesity type 6 English Pacheco. [address] [place], [place], [address] , [place]. tel: [phone] Referring Provider: Junior Lema, [address] [place], [address] . tel:[phone] Family History Family Member Type Diagnosis Age At Onset Father Problem alzheimer's disease Sister Problem (finding) depression Mother Problem (finding) malignant melanoma Sister Problem (finding) Obesity Mother Problem (finding) Obesity Mother Problem (finding) Diabetes mellitus Mother Problem (finding) chronic obstructive hai g disease Sister Problem (finding) Mental illness Immunizations Vaccine Date Status Comments Fluzone Trivalent, preservative free, split virus, 0.5mL dosage administered Source: New Immuniza tion Record Fluzone Quad, preservative free, split virus, 0.5mL dosage administered Source: New Immuniza tion Record Moderna (Low Dose) COVID19 Vaccine, 0.25mL per dose, booster dose administered Note: done at [facility] ; S ource: Source Unspecified Fluzone Quad, preservative free, split virus, 0.5mL dosage administered Source: New Immuniza tion Record Moderna COVID19 Vaccine, 0.5 mL per dose, 2 doses, administered 28 days apart administered Note: ; So urce: Public Agency Moderna COVID19 Vaccine, 0.5 mL per dose, 2 doses, administered 28 days apart administered Note: Sophie hawthorne ; Source: Source Unspecified Fluzone Quad, preservative free, split virus, 0.5mL dosage administered Source: New Immuniza tion Record Tdap administered Source: New Imm unization Record Fluzone Quad, preservative free, split virus, 0.5mL dosage administered Source: New Immuniza tion Record Flublok, quadrivalent, preservative free, 0.5mL dosage administered Source: New Immuniza tion Record Fluzone Quad , preservative free, split virus, 0.5mL dosage administered Source: New Immuniza tion Record influenza, injectable, quadrivalent, (3 years or older) administered Source: Other Provid er MMR administered Note: date not approximate ; Source: Other Provider Payers Payer name Insurance type Covered libertarian ID Authoriza tion(s) CIGNA OPEN ACCESS CI [id number] CIGNA OPEN ACCESS CI [id number] [place] [id number] [place] [id number] [place] [id number] [place] [id number] [place] [id number] [employer] [place] CI [id number] Social History Type Description Quantity Date Captured Comments Sex Male Smoking Status No Information Chief Complaint And Reason For Visit No Information Reason For Referral Reason For Referral No Information Plan Of Treatment Date Type Action Status Goal Dietary manageme nt education, guidance, and counseling completed Goal Dietary manageme nt education, guidance, and counseling completed Goal Dietary manageme nt education, guidance, and counseling completed Goal Dietary manageme nt education, guidance, and counseling completed Goal Dietary manageme nt education, guidance, and counseling completed Goal Dietary manageme nt education, guidance, and counseling completed Goal Dietary manageme nt education, guidance, and counseling completed Goal Dietary manageme nt education, guidance, and counseling completed Goal Dietary manageme nt education, guidance, and counseling completed Goal Dietary manageme nt education, guidance, and counseling completed Goal Dietary manageme nt education, guidance, and counseling completed Referral Ordered: Dr. Sasha Carrillo -Cardiology (related to Anginal equivalent) ordered Referral Ordered: Stress test, exercise ordered Referral Referred To: Dr. Sasha Carrillo Ordered: Referrals: Cardiology. Dr. Sasha Carrillo. Evaluation/diagnostic/treatment - Level 3 ordered Referral Ordered: Physical Therapy [place] [facility] Physical Therapy [facility] (related to Chronic low back pain, unspecified back pain laterality, unspecified whether sciatica present) ordered Referral Referred To: Physical Therapy [address]
[place], [phone] Ordered: Referrals: Physical Therapy. Location: [facility]. Evaluation/diagnostic/treatment - Level 3 ordered Referral Ordered: COLONOSCOPY, Flexible, Proximal To Splenic, Diagnostic, Wor W/O Collection Of Sp ordered Appointment Miguelina Cates Jr BOOKED History Of Present Illness Encounter Date Complaint History Of Prese nt Illness PX Chronic conditio nsosa-- not wearing cpap, bc cant sleep with cpaphtn-- decent controlobeisty-- not much changeprostate cancer-- still in active surveillancedepression--- some decreased motivationdiet-- says its poorexercise-- noimmunizations-- flu shot todayscreenings--utdmood-- about the samesleep-- not bad angina equivalent lots of shortn ess of breathbp is good at homeno chest pain chr conditions depression-- not the bestprostate cancer-- doing ok on active surveillanceobesity-- up 10 poundselevated blood pressure-- eats out a lot px Chronic conditio nsprostate cancer-- psa steadyweigth is updepression--up and downsob with activity-- with fast heart raceosa-- nto wearing cpap since weigth lossdiet-- eating too muchexercise-- not mcuhimmunizations--utdscreenings--utdmood-- see abovesleep chronic conditionss depression-- doing okprosttae cancer--under active surveillanceobesity--weigth is up Chronic conditions px chronic conditio nsprostate cancer-- psa up sligthlydepression-- doing ok on medhtn-- highe rnowobesity-- weight is updiet-- eatinig too muchexercise-- nono risk for drug abusescreeningimmunizations--utdmood-- doing ok chronic conditions depression-- controlled on medprostate cancer-- watchful waitingweigth is up a bit px chronic conditio nsprostate cancer-- psa up a bitdepression-- still up and downtoe fungus-- hasnt tried anythingvision changes- -no dipika, having black spots at timesback pain-- mostly lower, no numbness or pain radiatingsinuses --really bad, using manju ddiet-- still stress eatsexercise-----walkingscreening-- needs colonoscopyimmunizations-- got first covid vaccinemood--ok chronic conditions overweigth-- down close 200 pounds, lots of hikingdepression--doing better on medsprostate cancer-- moniring psa--no symptoms PX chronic conditio nsThis visit was completed via telephone due to the restrictions of the COVID-19 pandemic. All issues as below were discussed and addressed but no physical exam was performed. If it was felt that the patient should be evaluated in clinic then they were directed there. The patient verbally consented to visit.prostate cancer -- doing ok, some urinary issues-- psa stableobesity-- sp surgery-- weight down 66 pounds, having excess htn-- bp great, off water pilldepression-- doing talk therapyshoulder pain-- exercises help a bitdiet---usually ok, goes to over eaters anonymousexercise--- some, not the bestscreening-- needs colonoscopyimmunizations-- needs shingrixmood--- pretty good overallsleep is finememory 6 month obesity-- lost o catrachito 100 poundsdepression, stable on zoloft,s eein coudleorhtn-- bp great on hctzprostate cancer-- active surveillance Functional Status Date Functional Assessmen t No Information Instructions Date Instruction Additional Infor delfin continue medsstay active Related to Current moderate episode of major depressive disorder, unspecified whether recurrent annual flu shothealt hy diet and exerciseutd with screening Related to Encounter for general adult medical examination without abnormal findings walk daily Related to Class 3 Obesity will send zepbound Related to OS A (obstructive sleep apnea) check psa Related to Prost ate cancer continue medslow salt diet Relat ed to Benign essential hypertension Medication management Dietary management e ducation, guidance, and counseling Related to Body mass index (BMI) 40.0-44.9, adult check cbc and tsh Related to Oth er fatigue will get stress testwill check l abs Related to Anginal equivalent Dietary management e ducation, guidance, and counseling Related to Body mass index (BMI) 40.0-44.9, adult Medication management will add buproprion Related to C urrent moderate episode of major depressive disorder, unspecified whether recurrent follow up with urology Related t o Prostate cancer call with readings in 1 month Re lated to Elevated blood pressure reading Dietary management e ducation, guidance, and counseling Related to Body mass index (BMI) 39.0-39.9, adult Medication management restart cpap Related to [place] ( obstructive sleep apnea) continue medsstay active Related to Current moderate episode of major depressive disorder, unspecified whether recurrent continue active curveillance Rel ated to Prostate cancer utd with immunizatio ns and screeninghealthy diet and exercise Related to Encounter for general adult medical examination without abnormal findings healthy low calorie dietregular exercise with strength and cardiovascular training Related to Body mass index [BMI] 38.0-38.9, adult Dietary management e ducation, guidance, and counseling Related to Body mass index (BMI) 38.0-38.9, adult Medication management follow up with urology Related t o Prostate cancer only eat three meals a day and 1 snack Related to Body mass index [BMI] 35.0-35.9, adult continue medsstay active Related to Current moderate episode of major depressive disorder, unspecified whether recurrent Medication management Dietary management e ducation, guidance, and counseling Related to Body mass index (BMI) 35.0-35.9, adult low salt dietmonitor bp at home Related to Benign essential hypertension follow up with urology Related t o Prostate cancer annual flu shotutd w ith screeningscontinue healthy diet and exercise Related to Encounter for general adult medical examination without abnormal findings continue medsexercise daily Rela randall to Current moderate episode of major depressive disorder, unspecified whether recurrent Dietary management e ducation, guidance, and counseling Related to Body mass index (BMI) 34.0-34.9, adult Medication management continue sertaline Related to Cu rrent moderate episode of major depressive disorder, unspecified whether recurrent will check psa Related to Prost ate cancer healthy dietexercise daily Relat ed to Body mass index [BMI] 32.0-32.9, adult Dietary management e ducation, guidance, and counseling Related to Body mass index (BMI) 32.0-32.9, adult Medication management annual flu shotneeds colonoscopycontinue healthy diet and exercise Related to Encounter for general adult medical examination without abnormal findings follow up with urology Related t o Prostate cancer see above Related to Other chronic pain will send to PT Related to Chron ic low back pain, unspecified back pain laterality, unspecified whether sciatica present will send steroids Related to Si nusitis, unspecified chronicity, unspecified location continue medsexercise daily Rela randall to Current moderate episode of major depressive disorder, unspecified whether recurrent Dietary management e ducation, guidance, and counseling Related to Body mass index (BMI) 29.0-29.9, adult Medication management great job on weight losskeep it up Related to Body mass index (BMI) 28.0-28.9, adult will check psa Related to Prost ate cancer continue medscontinu e therapycontinue exercise Related to Current moderate episode of major depressive disorder, unspecified whether recurrent Dietary management e ducation, guidance, and counseling Related to Body mass index (BMI) 28.0-28.9, adult Medication management do exercises daily Related to Sh oulder pain, unspecified chronicity, unspecified laterality continue zoloftcontinueto see th erapist Related to Current moderate episode of major depressive disorder, unspecified whether recurrent bp better since weigth loss Rela randall to Benign essential hypertension annual flu shotneeds shingrixneeds colonoscopycontinue healthy diet and exercisefollow up in 6 months Related to Encounter for general adult medical examination without abnormal findings psa stablecontinue to monitor Re lated to Prostate cancer great job on weight losskeep it up Related to Morbid (severe) obesity due to excess calories Medication management Dietary management e ducation, guidance, and counseling Related to Body mass index (BMI) 30.0-30.9, adult continue medscheck bmp Related t o Benign essential hypertension will check psafollow up with uro logy Related to Prostate cancer great jobplan for surgery Relate d to Morbid (severe) obesity due to excess calories continue zoloft Related to Curre nt moderate episode of major depressive disorder, unspecified whether recurrent Dietary management e ducation, guidance, and counseling Related to Body mass index (BMI) 37.0-37.9, adult Medication management Assessments Type Assessment Date No Information Patient Care Teams Name Effective Dates (start - stop) Status Members No Information
--- NOTE | 2024-07-04 07:24 | ED_ITS ---
HPI - Abdominal Pain General Chief Complaint: Abdominal Pain Stated Complaint: abd. pain for 24 hours Time Seen by Provider: 07/04/24 07:16 History of Present Illness HPI narrative: Pt presents with epigastric abdominal pain for about 24 hrs. Pt had gastric bypass several years ago but has been doing well. Pt has GERD and thought it was his reflux but has gotten no relief from meds. Pt has been very nauseated. Pt says is moving bowels normally and has no dark or bloody stools. Pt denies fever. Related Data Home Medications Medication Instructions Recorded Confirmed Last Taken Type sertraline 100 mg tablet 100 mg PO DAILY 11/05/19 10/27/20 04/19/20 History tamsulosin 0.4 mg capsule 0.4 mg PO DAILY 04/12/20 10/27/20 04/19/20 History ferrous sulfate 27 mg iron tablet 27 mg PO DAILY 10/27/20 10/27/20 Unknown History omeprazole 40 mg capsule,delayed 40 mg PO DAILY 10/27/20 10/27/20 Unknown History release Allergies Allergy/AdvReac Type Severity Reaction Status Date / Time No Known Allergies Allergy Verified 07/04/24 07:15 Review of Systems 2 Review of Systems: All systems reviewed & are unremarkable except as noted in HPI and below PMFSH Past Medical History Medical History Anxiety Sleep apnea Surgical History Surgical History History of gastric bypass Social History Social History Smoking status: Never smoker Alcohol intake: current Drinks per week: 2 Substance use: never Substance use type: does not use Living arrangements: with family Gender identity (if verbalized by the patient): Male Sexual Orientation (if Verbalized by the Patient): Straight or Heterosexual Spiritual care concerns: No Exam 2 Const: General: healthy appearing and no acute distress Nutritional Appearance: well nourished Orientation/consciousness: patient oriented x3 Limitations: no limitations Resp: Effort & Inspection: normal respiratory effort Auscultation: clear to auscultation bilaterally Cardio: Rate: regular rate Rhythm: regular rhythm GI: GI Palp: Yes Soft to palpation and Yes Tenderness to palpation present (GI) (epiatrum and ruq) Auscultation: normal bowel sounds Skin: General skin exam: normal color Rashes: no rashes Wounds: no wounds Neuro: General: patient oriented x3, moves all extremities, no meningeal signs and no focal motor deficits Speech: normal speech Extrem: General: normal to inspection and no clubbing, cyanosis or edema Psych: Mental Status: mental status grossly normal Affect: normal affect Attitude: cooperative Course Vital Signs Vital signs: Vital Signs Temperature 97.9 F 07/04/24 07:53 Pulse Rate 68 07/04/24 07:53 Respiratory Rate 16 07/04/24 07:53 Blood Pressure 138/68 07/04/24 07:53 Pulse Oximetry 95 07/04/24 07:53 Oxygen Delivery Room Air 07/04/24 07:53 Temperature 97.8 F 07/04/24 08:27 Pulse Rate 73 07/04/24 08:27 Respiratory Rate 18 07/04/24 08:27 Blood Pressure 138/80 07/04/24 08:27 Pulse Oximetry 96 07/04/24 08:27 Oxygen Delivery Room Air 07/04/24 07:53 MDM - Abdominal Pain MDM Narrative Medical decision making narrative: Pt presents with epigastric pain and reflux symptoms with nausea for 24 hrs. given history of gastric bypass will need CT to rule out obstruction. will also need labs to rule out chelelithiasis or cystitis or pancreatitis as partal list. will give GI cocktail and morphine for pain and zofran for nausea. Pt has gallstones with some stranding c/w cholecystits. LFT's and lipase fine wbc 12.8. discussed with Dr Hernandez can go home on pain meds and diet restrictions no antibiotics and will see in office next week. Lab Data 07/04/24 07:33 07/04/24 07:56 Labs: Lab Results 07/04/24 07/04/24 07/04/24 Range/Units 07:33 07:34 07:56 WBC 12.8 H (4.5-10.0) K/mm3 RBC 5.23 (4.6-6.20) M/mm3 Hgb 15.3 (14.0-18.0) g/dL Hct 47.0 (42.0-52.0) % MCV 89.9 (80-100) fl MCH 29.3 (26-34) pg MCHC 32.6 (32-36) g/dl RDW 12.8 (11.5-14.5) % Plt Count 223 (150-375) k/mm3 MPV 9.9 (7.4-10.4) fl Immature Gran % (Auto) 0.4 (0-0.5) % Neut % (Auto) 82.1 H (45.5-73.1) % Lymph % (Auto) 10.6 L (18.3-44.2) % [place] % (Auto) 6.5 (2.6-8.5) % Eos % (Auto) 0.0 (0-4.4) % Baso % (Auto) 0.4 (0.2-1.2) % Lymph # (Auto) 1.35 (0.9-3.2) K/mm3 [place] # (Auto) 0.8 H (0.1-0.6) K/mm3 Eos # (Auto) 0.0 (0-0.3) K/mm3 Baso # (Auto) 0.1 (0.0-0.1) K/mm3 Abs Immat Gran (auto) 0.05 H (0.00-0.031) K/mm3 Absolute Neuts (auto) 10.5 H (1.3-6.7) K/mm3 Absolute Nucleated RBC 0.000 (0.0-0.012) K/mm3 Nucleated RBC % 0.0 (0.0-0.2) % PT 13.6 (11.1-14.7) Seconds INR 1.0 APTT 28.6 (22.3-36.8) Seconds Sodium 136 L (137-145) mmol/L Potassium 3.6 (3.4-5.0) mmol/L Chloride 98 (98-107) mmol/L Carbon Dioxide 29 (22-30) mmol/L Anion Gap 9 (4-12) mmol/L BUN 9 (9-20) mg/dL Creatinine 0.71 0.80 (0.7-1.3) mg/dL Estim Creat Clear Calc 143 128 ml/min Estimated GFR > 60 > 60 (59 - ) Glucose 123 H (65-110) mg/dL Lactic Acid 1.9 (0.7-2.0) mmol/L Calcium 9.0 (8.4-10.2) mg/dL Total Bilirubin 1.4 H (0.2-1.3) mg/dL AST 30 (17-59) U/L ALT 21 (6-50) U/L Alkaline Phosphatase 96 (38-126) U/L Troponin I < 0.012 (0.000-0.034) ng/mL Total Protein 8.0 (6.3-8.2) g/dL Albumin 4.4 (3.5-5.1) g/dL Lipase 40 (23-300) U/L Imaging Data Radiologist's impression: ITS Impressions Abdomen/Pelvis CT 07/04/24 08:10 IMPRESSION: 1. Cholelithiasis and acute cholecystitis. 2. Bilateral nonobstructing nephrolithiasis. 3. Extensive diverticulosis. 4. Prostatomegaly. Discharge Plan Discharge Clinical Impression: Gallstones and inflammation of gallbladder without obstruction Patient Disposition: Home Condition: Improved Instructions: Antibiotic Form, Cholecystitis (ED), Gallstones (ED) Patient Language: Zambian Prescriptions: New hydrocodone-acetaminophen 5-325 mg tablet 1 tablet PO Q6H PRN (Reason: pain) Qty: 14 0RF ondansetron 4 mg tablet,disintegrating 4 mg PO Q8H PRN (Reason: nausea and vomiting) Qty: 14 0RF No Action sertraline 100 mg tablet 100 mg PO DAILY tamsulosin 0.4 mg capsule 0.4 mg PO DAILY omeprazole 40 mg Capsule,Delayed Release(Dr/Ec) 40 mg PO DAILY ferrous sulfate 27 mg iron Tablet 27 mg PO DAILY Rx Instructions: OTC - patient self prescribed Follow-up/Referrals: [place],Junior Banerjee MD [Primary Care Provider] - Trevor Hernandez MD [Physician] -
[2024-07-04] MEDS: PANTOPRAZOLE SODIUM IV 40 MG VIAL IV PUSH (07:38)
[2024-07-04] MEDS: ONDANSETRON INJ 4 MG/2 ML VIAL IV PUSH (07:38)
[2024-07-04] MEDS: MORPHINE SULFATE (*CRX) 4 MG/ML INJ IV PUSH (07:38)
[2024-07-04] MEDS: SODIUM CHLORIDE 0.9% IV 1,000 ML 999 ML IV CONT (07:38)
--- OUTSIDE RECORDS SUMMARY | 2024-07-04 07:38 | XMS_ITS | Clinical Summary ---
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 Not on file Not [...] 08/07/2024 12:15 PM CDT Office Visit [facility] [address] [place], [place] [id number] Cydney Hernandez MD [facility] [address] [place], [place] [id number] Health Maintenance Due Date Last Done Comments [...] - 2023-2 5 season) 2023 PHQ-2 (Physician Kashia) 02/20/2024 Meningococcal B Vaccine Aged Out No l onger eligible based on patient's age to complete this topic Meningococcal Vaccine Aged Out No frank dar eligible based on patient's age to complete this topic RSV Immunizations Under 20 Months Aged Out No longer eligible based on patient's age to complete this topic Insurance [facility] Care Teams Dairy Machine Operator Farmworker Relationship Specialty Start Date End Date Junior Lema MD [address] [place] [id number] PCP - General INTERNAL MEDICINE 04/23/23
--- OUTSIDE RECORDS SUMMARY | 2024-07-04 07:38 | XMS_ITS | Continuity of Care Document ---
Author Organization [facility] Address [address] [place] [address] Phone Care Team Providers Care Suit Maker Name Role Phone Junior Lema MD Unavailable [...] Fax received & RF faxed back to [phone] Prilosec OTC 20 mg tablet,delayed release take [...] IRST INJ INFLUENZA VIRUS VACCINE 0.5mL DOSAGE; MS ESERVATIVE FREE, IM USE PREVENTATIVE-EST: 40-64 BODY MASS INDEX DOCD SYST BP >= 140 MM HG6 IT DIAST BP >= 90 MM HG ROUTINE VENIPUNCTURE IL OFFICE DOXUX-PEE-XIRDBWZB BODY MASS INDEX DOCD SYST BP >= 140 MM HG6 IT DIAST BP >= 90 MM HG Pt inelig neg scrn depres IMMUN ADMIN (INC PERCUTANEOUS) SINGLE, F IRST INJ FLU VAC NO PRSV 4 TRISTIN, 0.5mL DOSAGE OFFICE JIAOG-TGL-QCRKNJHI BODY MASS INDEX DOCD SYST BP >= [...] [place] Pt inelig neg scrn depres OFFICE NSDNZ-AFB-NLSMJYRQ BODY MASS INDEX DOCD SYST BP GE [...] NO PRSV 4 TRISTIN, 0.5mL DOSAGE OFFICE TQOTZ-QBY-VMDEKPBI BODY MASS INDEX DOCD SYST BP >= [...] DOSAGE Pt inelig neg scrn depres OFFICE DCCYM-PLJ-JUZEICTX BODY MASS INDEX DOCD SYST BP GE [...] METABOLIC PANEL(BMP) PSA, TOTAL ROUTINE VENIPUNCTURE OFFICE RECQZ-EKE-QUGSELMD BODY MASS INDEX DOCD SYST BP LT 130 MM HG DIAST BP < 80 MM HG Advance Directives Directive Yes / No Effective Date File Name No Information Encounters Encounter Description Practice Location Reason(s) For Visit Diagnoses Date Provider Providers Copied on Encounter [facility], [address], [place], [place], [address] , [place] tel: [phone] [facility] No Information 5 English Pacheco. [address] [place], [place], [address] , [place]. tel: [phone] [facility], [address], [place], [place], [address] , [place] tel: [phone] [facility] No Information 5 English Pacheco. [address] [place], [place], [address] , [place]. tel: [phone] [facility], [address], [place], [place], [address] , [place] tel: [phone] [facility] No Information 5 Chung [place]. [address] [facility], [address] [address], [place], [place], [address] , [place]. tel: [phone] Referring Provider: Junior Lema, [address] [place], [address] . tel:[phone] PREVENTATIVE -EST: 40-64 [facility], [address], [place], [place], [address] , tel: [phone] [facility] [place] PX (chief complaint) Class 3 ObesityBody mass index [BMI] 40.0-44.9, adultEncounter for general adult medical examination without abnormal findingsProstate cancerCurrent moderate episode of major depressive disorder, unspecified whether recurrentBenign essential hypertensionOSA (obstructive sleep apnea)Screening for lipoid disordersProstate cancer screening 5 English Pacheco. [address] [place], [place], [address] , [place]. tel: [phone] Referring Provider: Junior Lema, [address] [place], [address] . tel:[phone] [facility], [address], [place], [place], [address] , tel: [phone] [facility] [place] No Information 4 English [address]. [place] [place], [address] , [place]. tel: [phone] [facility], [address], [place], [place], [address] , tel: [phone] [facility] [place] No Information 4 English Pacheco. [address] [place], [place], [address] , [place]. tel: [phone] OFFICE HNOYQ-GHE-QE PANDED [facility], [address], [place], [place], [address] , tel: [phone] [facility] [place] angina equivalent (chief complaint) Body mass index [BMI] 40.0-44.9, adultAnginal equivalentOther fatigue 4 English Pacheco. [address] [place], [address] , [place]. tel: [phone] Referring Provider: [place], [address] . tel:[phone] OFFICE RUQXY-IUQ-OF TAILED [facility], [address], [place], [place], [address] , tel: [phone] [facility] [facility] chr conditions (chief complaint) Current moderate episode of major depressive disorder, unspecified whether recurrentProstate cancerBody mass index [BMI] 39.0-39.9, adultElevated blood pressure reading 3 English Pacheco. [address] [place], [place], [address] , [place]. tel: [phone] Referring Provider: Junior Lema, [place], [address] . tel:[phone] PREVENTATIVE -EST: 40-64 [facility], [address], [place], [place], [address] , tel: [phone] [facility] px (chief complaint) Encounter for general adult medical examination without abnormal findingsProstate cancerCurrent moderate episode of major depressive disorder, unspecified whether recurrentBody mass index [BMI] 38.0-38.9, adultOSA (obstructive sleep apnea) 0 3 English Pacheco. [address] [place], [place], [address] , [place]. tel:[phone] Referring Provider: [place], [address] . tel:[phone] [facility], [address], [place], [place], [address] , tel: [phone] [facility] No Information 0 [address] Chung [place] [place] [address], [address] , [place]. tel: [phone] Referring Provider: [place], [address] . tel:[phone] [facility], [address], [place], [place], [address] , [place] tel: [phone] [facility] Screening for lipoid disordersEncounte r for general adult medical examination without abnormal findingsProstate cancer screeningShortnes s of breath 3 English [place] [address] [place], [address] , [place]. tel: [phone] Referring Provider: Junior Lema, [place], [address] . tel:[phone] [facility], [address], [place], [place], [address] , [place] tel: [phone] [facility] No Information 3 English Pacheco. [address] [place], [address] , [place]. tel: [phone] OFFICE EGPAO-ULH-QO TAILED [facility], [address], [place], [place], [address] , [place] tel: [phone] [place] Chronic conditions (chief complaint)ch ronic conditionss (chief complaint) Body mass index [BMI] 35.0-35.9, adultCurrent moderate episode of major depressive disorder, unspecified whether recurrentProstate cancer 2 English Pacheco. [address] [place], [address] , [place]. tel: [phone] Referring Provider: [place], [address] . tel:[phone] PREVENTATIVE -EST: 40-64 [facility], [address], [place], [place], [address] , [place] tel: [phone] [place] px (chief complaint) Encounter for general adult medical examination without abnormal findingsCurrent moderate episode of major depressive disorder, unspecified whether recurrentProstate cancerBody mass index [BMI] 34.0-34.9, adultBenign essential hypertension 2 English P[address]co. [address] [place], [address] , [place]. tel: [phone] Referring Provider: [place], [address] . tel:[phone] [facility], [address], [place], [place], [address] , tel: [phone] [place] Screening for prostate cancerScreening for lipoid disordersElevated blood pressure readingEncounter for blood test for routine general physical examination 2 English Pacheco. [address] [place], [address] , [place]. tel:[phone] Referring Provider: [place], [address] . tel:[phone] OFFICE VBFMK-AEQ-ZR TAILED [facility], [address], [place], [place], [address] , tel: [phone] [place] chronic conditions (chief complaint) Body mass index [BMI] 32.0-32.9, adultProstate cancerCurrent moderate episode of major depressive disorder, unspecified whether recurrent 1 English Pacheco. [address] [place], [address] , [place]. tel: [phone] Referring Provider: [place], [address] . tel:[phone] PREVENTATIVE -EST: 40-64 [facility], [address], [place], [place], [address] , tel: [phone] [place] px (chief complaint) Encounter for general adult medical examination without abnormal findingsBody mass index (BMI) 29.0-29.9, adultCurrent moderate episode of major depressive disorder, unspecified whether recurrentSinusiti s, unspecified chronicity, unspecified locationChronic low back pain, unspecified back pain laterality, unspecified whether sciatica presentOther chronic painProstate cancerEncounter for screening for malignant neoplasm of colon 1 English Pacheco. [address] [place], [address] , [place]. tel: [phone] Referring Provider: [place], [address] . tel:[phone] [facility], [address], [place], [place], [address] , tel: [phone] [place] Encounter for blood test for routine general physical examinationScreen ing for lipoid disordersScreenin g for prostate cancer 1 English Pacheco. [address] [place], [address] , . tel:[phone] Referring Provider: [place], [address] . tel:[phone] OFFICE TXIRS-LSI-OM TAILED [facility], [address], [place], [place], [address] , tel: [phone] [place] chronic conditions (chief complaint) Body mass index (BMI) 28.0-28.9, adultProstate cancerCurrent moderate episode of major depressive disorder, unspecified whether recurrent Sep-2 - 0 English Pacheco. [place] [place], [address] , [place]. tel:[phone] Referring Provider: [place], [address] . tel:[phone] [facility], [address], [place], [place], [address] , tel: [phone] [place] No Information Lane-0 0 English Pacheco. [address] [place], [address] , [place]. tel:[phone] PREVENTATIVE -EST: 40-64 [facility], [address], [place], [place], [address] , tel: [phone] [place] PX (chief complaint) Encounter for general adult medical examination without abnormal findingsMorbid (severe) obesity due to excess caloriesCurrent moderate episode of major depressive disorder, unspecified whether recurrentBenign essential hypertensionBody mass index (BMI) 30.0-30.9, adultProstate cancerShoulder pain, unspecified chronicity, unspecified laterality Mar-2 0 English Pacheco. [place] [place], [address] , [place]. tel:[phone] Referring Provider: [place], [address] . tel:[phone] [facility], [address], [place], [place], [address] , tel: [phone] [place] Encounter for general adult medical examination without abnormal findingsScreening for lipoid disordersElevated PSABenign essential hypertension Apr- 8- 0 English [place]. [place], [address] , [place]. tel: [phone] Referring Provider: [place], [address] . tel:[phone] OFFICE KIPKZ-TCH-WM [facility], [address], [place], [place], [address] , tel: [phone] [place] 6 month (chief complaint) Body mass index (BMI) 37.0-37.9, adultBenign essential hypertensionMorbi d (severe) obesity due to excess caloriesProstate cancerCurrent moderate episode of major depressive disorder, unspecified whether recurrent Oct- 9 English John. [place], [address] , [place]. tel: [phone] Referring Provider: [place], [address] . tel:[phone] [facility], [address], [place], [place], [address] , [place] tel: [phone] [place] Adult general medical examinationProsta te cancerMorbid (severe) obesity due to excess caloriesCurrent moderate episode of major depressive disorder, unspecified whether recurrentBenign essential hypertensionOSA (obstructive sleep apnea)Encounter for screening for malignant neoplasm of colon 9 English John. [place], [address] , [place]. tel: [phone] Referring Provider: [place], [address] . tel:[phone] [facility], [address], [place], [place], [address] , [place] tel: [phone] [place] Prostate cancerBenign essential hypertensionScree traci for lipoid disordersAdult general medical examination 9 English [place]. [place], [address] , [place]. tel: [phone] Referring Provider: Junior Zimbabwean, [address] [place], [address] . tel:[phone] [facility], [address], [place], [place], [address] , tel: [phone] [place] Morbid (severe) obesity due to excess caloriesCurrent moderate episode of major depressive disorder, unspecified whether recurrentSnoring 0 9 English Pacheco[address] [place] [place], [address] , . tel: [phone] Referring Provider: [place], [address] . tel:[phone] [facility], [address], [place], [place], [address] , tel: [phone] [place] Chronic right shoulder painOther chronic pain 8 English P[address]co. [address] [place], [address] , [place]. tel: [phone] [facility], [address], [place], [place], [address] , tel: [phone] [place] Morbid (severe) obesity due to excess caloriesHTN, goal below 130/80Prostate cancer Sep- 8 English Pacheco. [place], [address] , [place]. tel: [phone] Referring Provider: [place], [address] . tel:[phone] [facility], [address], [place], [place], [address] , tel: [phone] [place] Encounter for general adult medical examination without abnormal findingsProstate cancerHTN, goal below 130/80Morbid (severe) obesity due to excess caloriesErectile dysfunction, unspecified erectile dysfunction typeSnoringScreen ing for malignant neoplasm of colon Apr- 8 English Pacheco. [place], [address] , [place]. tel: [phone] Referring Provider: [place], [address] . tel:[phone] [facility], [address], [place], [place], [address] , tel: [phone] [place] Body mass index (BMI) 45.0-49.9, adultMorbid (severe) obesity due to excess caloriesProstate cancerErectile dysfunction, unspecified erectile dysfunction typeHTN, goal below 130/80Screening for lipoid disorders Oct-2 7 English P[address]co. [place], [address] , [place]. tel: [phone] Referring Provider: [place], [address] . tel:[phone] [facility], [address], [place], [place], [address] , tel: [phone] [place] Morbid obesity, unspecified obesity typeErectile dysfunction, unspecified erectile dysfunction typeChronic right shoulder painProstate cancerElevated blood pressure reading 7 English Pacheco. [place], [address] , [place]. tel: [phone] Referring Provider: [place], [address] . tel:[phone] [facility], [address], [place], [place], [address] , tel: [phone] [place] Screening PSA (prostate specific antigen)Elevated PSA 6 English Pacheco. [place], [address] , [place]. tel: [phone] Referring Provider: [place], [address] . tel:[phone] [facility], [address], [place], [place], [address] , tel: [phone] [place] Morbid obesity, unspecified obesity typeEncounter for general adult medical examination without abnormal findingsScreening PSA (prostate specific antigen) Oct-0 6 English P[address]co. [place], [address] , [place]. tel: [phone] Referring Provider: Junior Lema, [address] [place], [address] . tel:[phone] [facility], [address], [place], [place], [address] , [place] tel: [phone] [place] Encounter for general adult medical examination without abnormal findingsChronic right shoulder painOther chronic painErectile dysfunction, unspecified erectile dysfunction typeMorbid obesity, unspecified obesity type 6 English Pacheco. [address] [place], [place], [address] , [place]. tel: [phone] Referring Provider: Junior Lema, [address] [place], [address] . tel:[phone] Family History Family Member Type Diagnosis Age At Onset Sister Problem (finding) Mental illness Mother Problem (finding) chronic obstructive hai g disease Mother Problem (finding) Diabetes mellitus Father Problem alzheimer's disease Mother Problem (finding) Obesity Sister Problem (finding) Obesity Mother Problem (finding) malignant melanoma Sister Problem (finding) depression Immunizations Vaccine Date Status Comments Fluzone Trivalent, [...] ID Authoriza tion(s) CIGNA OPEN ACCESS CI [id number] CIGNA OPEN ACCESS CI [id number] CIG[place] [id number] [id number] [place] [id number] [place] [id number] [place] [id number] AET[place] CI [id number] Social History Type Description Quantity Date Captured [...] guidance, and counseling completed Referral Ordered: Dr. Ssaha Carrillo -Cardiology (related to Anginal equivalent) ordered Referral Ordered: Stress test, exercise ordered Referral Referred To: Dr. Sasha Carrillo Ordered: Referrals: Cardiology. Dr. Sasha Carrillo. Evaluation/diagnostic/treatment - Level 3 ordered Referral [facility] (related to Chronic low back pain, unspecified back pain laterality, unspecified whether sciatica present) ordered Referral Referred To: Physical Therapy [address]
[place], [phone] Ordered: Referrals: Physical Therapy. Location: [facility]. Evaluation/diagnostic/treatment - Level 3 ordered Referral Ordered: [...]
--- OUTSIDE RECORDS SUMMARY | 2024-07-04 07:38 | XMS_ITS | Clinical Summary ---
Author Organization [facility] Address [address] [place] [address] Care Team Providers Care Center Director Lead Teacher Name Role Phone Junior Lema MD Primary Care Provider [phone] Source Comments [facility],non-owned Affiliates and Associated Physician Practices is amultiple site organization consisting of ambulatory clinics and hospital sitesin [place], [place], [place] and [place]. This disclosure is being madepursuant to the Care Everywhere program and may not contain all information available regarding this patient. Last updated 17.[facility] Allergies No known active allergies Medications * Be aware that medications may not be up to date on this document. Alwaysverify current medications with the patient. 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 Gender Identity Not on file Sexual Orientation Not on file Last Filed Vital Signs Vital Sign Reading Time Taken Comments Blood Pressure 112/70 12/30/2018 9:02 AM MOLDER APPRENTICE Pulse 78 12/30/2018 9:02 AM MOLDER APPRENTICE Temperature 36.8 C (98.2 F) 11/28/2018 3:29 [...] - 106 mg/dL 11/28/2018 5:17 AM CDT [facility] Sodium 137 136 - 145 mmol/L 11/28/2018 5:17 AM CDT [facility] Potassium 4.2 3.5 - 5.1 mmol/L 11/28/2018 5:17 AM CDT [facility] Chloride 100 98 - 107 mmol/L 11/28/2018 5:17 AM CDT [facility] CO2 28 23 - 31 mmol/L 11/28/2018 5:17 AM CDT [facility] Calcium 8.8 8.4 - 10.2 mg/dL 11/28/2018 5:17 AM CDT [facility] Anion Gap 9 8 - 16 mmol/L 11/28/2018 5:17 AM CDT [facility] BUN 16 8.4 - 25.7 mg/dL 11/28/2018 5:17 AM CDT [facility] Creatinine 0.75 0.72 - 1.25 mg/dL 11/28/2018 5:17 AM CDT [facility] eGFR by MDRD >60 >60 mL/min/1.7 3m2 11/28/2018 5:17 AM CDT [facility] eGFR by MDRD >60 >60 mL/min/1.7 3m2 11/28/2018 5:17 AM CDT [facility] Blood BLOOD SPECIMEN / Unknown Venipuncture / Unknown 11/28/2018 3:49 AM CDT 11/28/2018 4:05 AM CDT us Raghav Santos MD LAB - CHEMISTRY ORDERABLES Fi nal Result [facility] [address] [place] [address] from Last 3 Months or Most Recently Relevant to Health Maintenance Insurance [facility] Advance Directives * Full Code (Latest Code Status on File) Date Activated Date Inactivated Comments 11/27/2018 5:05 PM 11/28/2018 7:39 PM Care Teams Center Director Lead Teacher Relationship Specialty Start Date End Date Junior Lema MD [address] [place] [address] PCP - General Internal Medicine 06/26/18
[2024-07-04] MEDS: LIDOCAINE 2% VISC SOLN 15 ML UDC 20 ML PO (07:40)
[2024-07-04 07:41] LABS: Basophils Absolute Auto 0.1 K/mm3 (0.0-0.1); Basophils Percent Auto 0.4 % (0.2-1.2); Hemoglobin 15.3 g/dL (14.0-18.0); Immature Granulocyte Absolute 0.05 K/mm3 (0.00-0.031); Immature Granulocyte Percent A 0.4 % (0-0.5); Lymphocytes Absolute Auto 1.35 K/mm3 (0.9-3.2); Lymphocytes Percent Auto 10.6 % (18.3-44.2); Mean Corpuscular HGB Conc 32.6 g/dl (32-36); Mean Corpuscular Hemoglobin 29.3 pg (26-34); Mean Corpuscular Volume 89.9 fl (80-100); Mean Platelet Volume 9.9 fl (7.4-10.4); Monocytes Absolute Auto 0.8 K/mm3 (0.1-0.6); Monocytes Percent Auto 6.5 % (2.6-8.5); Neutrophils Absolute Auto 10.5 K/mm3 (1.3-6.7); Neutrophils Percent Auto 82.1 % (45.5-73.1); Platelet Count Result 223 k/mm3 (150-375); Red Blood Count 5.23 M/mm3 (4.6-6.20); Red Cell Distribution Width 12.8 % (11.5-14.5); White Blood Count 12.8 K/mm3 (4.5-10.0)
[2024-07-04] MEDS: MAG HYDROX/AL HYDROX/SIMETH 30 ML UDC PO (07:41)
[2024-07-04 07:53] VITALS: BP 138/68; PULSE 68; RESP 16; TEMP 36.6; O2SAT 95
[2024-07-04 07:53] LABS: Lactic Acid Reflex 1.9 mmol/L (0.7-2.0)
[2024-07-04 07:54] LABS: Partial Thromboplastin Time 28.6 Seconds (22.3-36.8); Prothrombin Time 13.6 Seconds (11.1-14.7)
[2024-07-04 08:00] LABS: Estimated CRCL calculation 128 ml/min; Estimated Glomerular Filt Rate > 60
[2024-07-04 08:27] VITALS: BP 138/80; PULSE 73; RESP 18; TEMP 36.6; O2SAT 96
[2024-07-04 08:31] LABS: Alanine Aminotransferase 21 U/L (6-50); Albumin Level 4.4 g/dL (3.5-5.1); Alkaline Phosphatase 96 U/L (38-126); Anion Gap 9 mmol/L (4-12); Aspartate Amino Transferase 30 U/L (17-59); Bilirubin,Total 1.4 mg/dL (0.2-1.3); Blood Urea Nitrogen 9 mg/dL (9-20); Carbon Dioxide 29 mmol/L (22-30); Chloride 98 mmol/L (98-107); Estimated CRCL calculation 143 ml/min; Estimated Glomerular Filt Rate > 60; Glucose 123 mg/dL (65-110); Lipase 40 U/L (23-300); Potassium 3.6 mmol/L (3.4-5.0); Sodium 136 mmol/L (137-145)
[2024-07-04 08:43] LABS: Troponin I < 0.012 ng/mL (0.000-0.034)
[2024-07-04 09:26] VITALS: BP 136/80; PULSE 82; RESP 16; TEMP 36.6; O2SAT 98
== END 2024-07-04 09:32 | disposition home or self-care (01) ==
PROVIDERS: Emergency Provider Emergency Medicine; PCP Internal Medicine
DX: K80.20 Calculus of gallbladder without cholecystitis without obstruction (principal)
CPT/HCPCS: 36415; 74177; 80053; 83605; 83690; 84484; 85025; 85610; 85730; 96361; 96374; 96375; 99284; A9270; J2270; J2405; J2470; J7030; Q9967

== ENCOUNTER 2024-07-17 20:26 | Inpatient (IN) | payer OTHER, SELFPAY ==
[2024-07-17] VITALS (9 sets, daily range): BP systolic 102–135; BP diastolic 71–91; PULSE 77–96; RESP 15–20; TEMP 36.5–37; O2SAT 95–99; BMI 39.2; BMI 40.8
--- NOTE | ~2024-07-17 | US_ITS ---
EXAMINATION: US venous doppler [facility] DATE: 07/23/2024 11:52 INDICATION: Bilateral lower limb swelling TECHNIQUE: Grayscale ultrasound images without and with compression and Doppler ultrasound images of the bilateral lower extremity veins were obtained. COMPARISON: None. FINDINGS: The visualized portions of right common femoral vein, profunda (deep) femoral vein, femoral vein, pop liteal vein, posterior tibial veins, peroneal veins, gastrocnemius vein and greater saphenous vein ou tflow are patent. The visualized portions of left common femoral vein, profunda femoral vein, femoral vein, popliteal v ein, posterior tibial veins, peroneal veins, gastrocnemius vein and greater saphenous vein outflow ar e patent. IMPRESSION: 1. No deep venous thrombosis in either lower limb. Reviewed, dictated and finalized at location A.
--- NOTE | ~2024-07-17 | XR_ITS ---
XR abdomen/kub 1V 07/21/2024 09:12 Indication: Ureteral stone Procedure: KUB Comparison: CT dated 07/19/2024 Findings: There is a large amount of bowel gas in the colon and small bowel, likely ileus. There is a small right pleural effusion. Bowel content limits evaluation for renal stones. There is a percutane ous catheter overlying the upper abdomen. Impression: 1: Nonspecific bowel gas pattern with large amount of retained gas throughout the small bowel and col on, likely ileus. 2: Small right pleural effusion. Reviewed, dictated and finalized at location A. Impression: 1: Nonspecific bowel gas pattern with large amount of retained gas throughout t he small bowel and colon, likely ileus. 2: Small right pleural effusion.
--- NOTE | ~2024-07-17 | XR_ITS ---
EXAMINATION: XR catheter cholangiogram DATE: 07/22/2024 09:09 INDICATION: Assess for gallbladder leakage and cystic duct patency TECHNIQUE: 50 mL Omnipaque 240 was injected through the Herman catheter utilized as a cutaneous cholec ystostomy tube with intermittent fluoroscopic observation. At the conclusion of the suture the cathet er was flushed with 20 mL sterile saline. There were no immediate complications. Fluoroscopy exposure time was 1.6 minutes. The total number of images was 17. Total DAP was 28.976 Gycm^2. FINDINGS: There is initially some resistance to contrast injection as trauma along the course of the Herman cath eter consistent with likely obstructing sludge and/or tiny gallstones. Subsequent images demonstrate contrast opacifying the gallbladder lumen surrounding the Herman catheter bulb. There are several smal l filling defects in the gallbladder with a larger filling defect at the neck of the gallbladder. Con trast extends beyond the stone into the cystic duct and eventually opacifying the common bile duct wi th some reflux into the central intrahepatic biliary tree. Contrast did eventually pass into the duod enum. No evident choledocholithiasis within the common bile duct. No evident extraluminal contrast ex travasation. A pericholecystic surgical drain can be seen in the right upper quadrant which remains u nopacified with contrast. IMPRESSION: 1. Cholelithiasis in the body and neck of the gallbladder with patent cystic and common bile ducts. N o extraluminal contrast extravasation. Reviewed, dictated and finalized at location A. IMPRESSION: 1. Cholelithiasis in the body and neck of the gallbladder with patent cystic an d common bile ducts. No extraluminal contrast extravasation.
--- NOTE | ~2024-07-17 | CT_ITS ---
CT abdomen pelvis wo con Ordering provider: Sukumar Seay MD History: 64 years Male with . sepsis, s/p cholecystostomy tube placement . Comparison: July 04, 2024 Technique: CT abdomen and pelvis without IV and without oral contrast. Automated exposure control and iterative reconstruction technique were employed. The dose-length product was 1837.44 mGy-cm. Findings: VISUALIZED LOWER CHEST: Right moderate pleural effusion with adjacent atelectasis. UPPER ABDOMINAL ORGANS: Liver: Normal. Gallbladder: Cholelithiasis with thickened wall of the gallbladder suggestive of cholecystitis.. Spleen: Normal. Stomach/duodenum: Postoperative changes in the stomach with small sliding hiatus hernia. Pancreas: Normal. Adrenals: Normal. Kidneys: Stone seen in the left kidney lower pole. Stone is seen in the left upper ureter measuring 9 mm. Mild left hydronephrotic changes. Cyst in the left kidney upper pole measuring 3.3 cm. Tiny stone in the right kidney upper pole. PELVIC ORGANS: The bladder shows thickened wall suggestive of cystitis. Evaluation to exclude infiltrative process is advised. Enlarged prostate. BOWEL AND MESENTERY: Colon: Mild sigmoid diverticulosis without diverticulitis. Normal appendix. Small Bowel: Normal. No obstruction. Peritoneum/mesentery: Large pneumoperitoneum is seen with a catheter seen in the abdomen. Minimal the fluid seen around the liver.. No mesenteric lymphadenopathy. RETROPERITONEUM: Mild atheromatous disease of the abdominal aorta. No retroperitoneal lymphadenopat hy. MUSCULOSKELETAL: Superficial soft tissues: Air is seen in the subcutaneous tissues of the right abdominal wall and low er chest [facility]. Catheter is seen extending outside the abdomen from that area. Bilateral fat containi ng inguinal hernias. Otherwise, The superficial soft tissues are normal. Bones: Age appropriate degenerative changes of the spine. Pubic symphysitis. Bilateral sacroiliacs. IMPRESSION: 1. Large amount of free air in the abdomen with the catheter seen anteriorly not reaching to the gal lbladder. Minimal free fluid around the liver. 2. Thickened wall of the gallbladder with cholelithiasis. Cholecystitis is not excluded. 3. No evidence of appendicitis, diverticulitis or intestinal obstruction. 4. Stone in the left upper ureter with left hydronephrotic changes. 5. Stone in the left kidney lower pole and tiny stone in the right kidney upper pole. 6. Thickened wall of the urinary bladder anteriorly. Further evaluation advised. Enlarged prostate. 7. Air in the subcutaneous tissues of the anterior abdominal wall. 8. Right pleural effusion with adjacent atelectasis Reviewed, dictated and finalized at location A. IMPRESSION: 1. Large amount of free air in the abdomen with the catheter seen anteriorly n ot reaching to the gallbladder. Minimal free fluid around the liver. 2. Thickened wall of the gallbladder with cholelithiasis. Cholecystitis is not excluded. 3. No evidence of appendicitis, diverticulitis or intestinal obstruction. 4. Stone in the left upper ureter with left hydronephrotic changes. 5. Stone in the left kidney lower pole and tiny stone in the right kidney uppe r pole. 6. Thickened wall of the urinary bladder anteriorly. Further evaluation advise d. Enlarged prostate. 7. Air in the subcutaneous tissues of the anterior abdominal wall. 8. Right pleural effusion with adjacent atelectasis
--- NOTE | ~2024-07-17 | XR_ITS ---
EXAMINATION: XR retrograde pyelo w/stent LT DATE: 07/22/2024 12:14 INDICATION: Left intraureteral stent placement TECHNIQUE: 5 fluoroscopic images of the left abdomen and pelvis were obtained during procedure perfor med by Dr. Fernandez. Radiologist was not present for the imaging or procedure. The amount of fluorosc opy time used during this procedure was 0.5 minutes. Total DAP was 1.04 mGym^2. COMPARISON: CT dated 07/19/2024 and KUB dated 07/21/2024 FINDINGS: Images demonstrate cannulation of the right ureter which demonstrates mild left hydronephrosis. A int ernal ureteral stent subsequently advanced into the left ureter with what appears to be proximal loop formed in the right renal pelvis. The ureteropelvic junction stone identified on prior CT is nonvisu alized in the current study which could be due to either small size or interval passage or extraction . The bulb of a right upper quadrant drainage catheter external to the patient projects over the pelv is. IMPRESSION: 1. Fluoroscopy utilized during left internal ureteral stent placement with loops formed in the left r enal pelvis. See procedure note for further detail.. Reviewed, dictated and finalized at location A. IMPRESSION: 1. Fluoroscopy utilized during left internal ureteral stent placement with loop s formed in the left renal pelvis. See procedure note for further detail..
--- NOTE | ~2024-07-17 | CT_ITS ---
Non-contrast CT scan of the Abdomen and Pelvis Clinical indication: Kidney stone Technique: 2.5 mm axial scans were obtained through the abdomen and pelvis without intravenous or or al contrast. Dose reduction technique was used on this scan by utilizing automated exposure control a nd iterative reconstruction technique. The dose-length product (DLP) was 1812.35 mGy-cm. COMPARISON: 07/19/2024 Findings: Images through the lung bases reveal [id number] right pleural effusion with extensi ve right lower lobe consolidation and partial right middle lobe consolidation with air bronchograms, likely atelectasis. Correlate for pneumonia. There is minimal layering left pleural effusion.. Left ureteral stent in place. Stable nonobstructing left lower pole renal stone. No right renal or ri ght ureteral stone. No hydronephrosis on either side. Stable left renal cyst. The liver, spleen, pancreas, and adrenals appear normal. Probable contracted gallbladder with calcifi ed stones. There is no aortic aneurysm. There is no evidence of bowel obstruction. There is large amount of pneumoperitoneum in the right upp er quadrant, as well as some fluid posterior to the liver in the right upper quadrant there is extens louie subcutaneous emphysema along the right abdominal wall with a percutaneous drainage catheter prese nt, with tip in the right upper quadrant.. Images through the pelvis were performed. No pelvic ascites. Prostate gland is enlarged. Urinary blad violet unremarkable. Impression: Increasing right upper quadrant pneumoperitoneum and fluid posterior to the liver, somewhat loculated in overall appearance. Correlate for loculated collection and iatrogenic air, or developing abscess, versus any possibility of bowel perforation, though the latter is felt to be less likely. Percutaneous catheter in the right upper quadrant with tip in the right upper quadrant, but not withi n the gallbladder. Probable contracted gallbladder with gallstones. Left ureteral stent with stable nonobstructing left lower pole renal stone. No hydronephrosis. No lef t ureteral stone at this time. [id number] right pleural effusion with right lower and middle lobe atelectatic change. Correla te clinically for pneumonia. Minimal left pleural effusion. Enlarged prostate gland. Reviewed, dictated and finalized at location . Impression: Increasing right upper quadrant pneumoperitoneum and fluid posterior to the marina er, somewhat loculated in overall appearance. Correlate for loculated collectio n and iatrogenic air, or developing abscess, versus any possibility of bowel pe rforation, though the latter is felt to be less likely. Percutaneous catheter in the right upper quadrant with tip in the right upper q uadrant, but not within the gallbladder. Probable contracted gallbladder with gallstones. Left ureteral stent with stable nonobstructing left lower pole renal stone. No hydronephrosis. No left ureteral stone at this time. [id number] right pleural effusion with right lower and middle lobe atele ctatic change. Correlate clinically for pneumonia. Minimal left pleural effusion. Enlarged prostate gland.
--- OUTSIDE RECORDS SUMMARY | 2024-07-17 09:29 | XMS_ITS | Clinical Summary ---
Author Organization [facility] Address [address] [place] [address] Care Team Providers Care Truck Bracer Name Role Phone Junior Lema MD Primary Care Provider [phone] Source Comments [facility],non-owned Affiliates and Associated Physician Practices is amultiple site organization consisting of ambulatory clinics and hospital sitesin [place], [place], [place] and [place]. This disclosure is being madepursuant to the Care Everywhere program and may not contain all information available regarding this patient. Last updated 17.[facility] Allergies No known active allergies Medications * Be aware that medications may not be up to date on this document. Alwaysverify current medications with the patient. 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 Gender Identity Not on file Sexual Orientation Not on file Last Filed Vital Signs Vital Sign Reading Time Taken Comments Blood Pressure 112/70 12/30/2018 9:02 AM LABEL PINKER Pulse 78 12/30/2018 9:02 AM LABEL PINKER Temperature 36.8 C (98.2 F) 11/28/2018 3:29 PM CDT Respiratory Rate 18 11/28/2018 3:29 PM CDT Oxygen Saturation 97% 11/28/2018 3:29 PM CDT Inhaled Oxygen Concentration - - Weight 106.6 kg (235 lb) 12/15/2019 1:33 PM CDT Height 195.6 cm (6' 5) 12/15/2019 1:33 PM CDT Body Mass Index [...] - 106 mg/dL 11/28/2018 5:17 AM CDT [facility] Sodium 137 136 - 145 mmol/L 11/28/2018 5:17 AM CDT [facility] Potassium 4.2 3.5 - 5.1 mmol/L 11/28/2018 5:17 AM CDT [facility] Chloride 100 98 - 107 mmol/L 11/28/2018 5:17 AM CDT [facility] CO2 28 23 - 31 mmol/L 11/28/2018 5:17 AM CDT [facility] Calcium 8.8 8.4 - 10.2 mg/dL 11/28/2018 5:17 AM CDT [facility] Anion Gap 9 8 - 16 mmol/L 11/28/2018 5:17 AM CDT [facility] BUN 16 8.4 - 25.7 mg/dL 11/28/2018 5:17 AM CDT [facility] Creatinine 0.75 0.72 - 1.25 mg/dL 11/28/2018 5:17 AM CDT [facility] eGFR by MDRD >60 >60 mL/min/1.7 3m2 11/28/2018 5:17 AM CDT [facility] eGFR by MDRD >60 >60 mL/min/1.7 3m2 11/28/2018 5:17 AM CDT [facility] Blood BLOOD SPECIMEN / Unknown Venipuncture / Unknown 11/28/2018 3:49 AM CDT 11/28/2018 4:05 AM CDT us Raghav Santos MD LAB - CHEMISTRY ORDERABLES Fi nal Result [facility] [address] [place] [address] from Last 3 Months or Most Recently Relevant to Health Maintenance Insurance [facility] Advance Directives * Full Code (Latest Code Status on File) Date Activated Date Inactivated Comments 11/27/2018 5:05 PM 11/28/2018 7:39 PM Care Teams Truck Bracer Relationship Specialty Start Date End Date Junior Lema MD [address] [place] [id number] PCP - General Internal Medicine 06/26/18
--- NOTE | 2024-07-17 10:07 | PC.NURSE ---
Report to the Outpatient Waiting Room, entrance under the green pavilion located off [facility], at time _1pm_ on date _[id number]_. Planned Procedure Time: _3pm_.? Time changes happen often and if your time is changed the preop area will call you the afternoon before. - You and your visitor will be asked to self-screen and do not enter if you have any COVID symptoms. Please call surgeon if you need to reschedule. - A mask is optional within the hospital at this time. Patients may have clear liquids (water, carbonated beverages, clear teas, apple juice) until 3 hours prior to surgery with a maximum of 20 ounces. - No food from midnight until time of surgery and no smoking, or chewing tobacco (or any form of nicotine). No chewing gum, candy or mints. Take only the following medications with a SIP of water on the morning of surgery: __Patient already took today Sertaline, Omeprazole, Ondansetron and Losartan. Did not take Iron tab today.___ DO NOT STOP ANY OF YOUR OTHER PRESCRIPTION MEDICATIONS PRIOR TO SURGERY EXCEPT THE FOLLOWING Hold all vitamins and supplements for 3 days per anesthesiologist. Medications to discontinue per physician Date to take last dose Please no make-up, nail kazakh, hairspray, perfume, deodorant, or body powder the day of surgery.? No jewelry (including any body piercings) or valuables the day of surgery, leave them at home.? Please take a shower or bath the night before, or the morning of, surgery with an antibacterial soap.? Wear comfortable, loose fitting clothing. - Jewelry must be removed prior to entering the operating room.? Rings and piercings that are not removed may be cut off. - The hospital will not accept responsibility for valuables.? - Please leave all valuables, including medications, at home the day of surgery. If you are going home after surgery, a licensed catering driver must drive you home.? - NO public transportation without another adult if you receive anesthesia. - We recommend that an adult stay with you for 24 hours following discharge. - We also recommend that you do not drive, make important decision, drink alcoholic beverages, or take any drugs that were not prescribed by your health care provider for at least 24 hours after your discharge time. Follow any additional instructions given to you from your surgeon. Telephone instructions given to __Richard___and asked if any additional questions and then verbalized understanding. Patient advised to call surgeon office or pre surgery nurse liaison [phone] if any additional questions.
--- NOTE | 2024-07-17 11:12 | ECG_ITS ---
Test Date: 2024-07-17 13:35:09 Measurements Intervals [place] Rate: 83 P: 7 [place]: 153 QRS: -11 QRSD: 86 T: 53 QT: 375 QTc: 441 Interpretive Statements SINUS RHYTHM WITH OCCASIONAL VENTRICULAR PREMATURE COMPLEXES MINIMAL VOLTAGE CRITERIA FOR LVH, CONSIDER NORMAL VARIANT [MEETS CRITERIA IN ONE OF: R(aVL), S(V1), R(V5), R(V5/V6)+S(V1)] NONSPECIFIC T-WAVE ABNORMALITY No previous ECG available for comparison Electronically Signed On 07-18-2024 11:05:57 CDT by Merle Mullins M.D.
--- NOTE | 2024-07-17 12:22 | WPDHPUPDATE1 ---
History and Physical Update Update Date/Time: 07/17/24 12:22 History and Physical has been reviewed, including an updated exam of the patient. There are NO changes in the patient's condition. Risks, benefits, and alternatives have been discussed and questions answered. Patient agrees to proceed with procedure.
[2024-07-17] MEDS: ceFAZolin 3 GM/D5W 100 ML 100 ML IVPB (13:30)
[2024-07-17] MEDS: KETOROLAC 15 MG/ML VIAL (*BKC) IV PUSH (13:47)
[2024-07-17] MEDS: ACETAMINOPHEN 500 MG TABLET 1000 MG PO (13:48)
--- NOTE | 2024-07-17 13:49 | WPDANESEPPF ---
Anes - Initial Pre Proc Eval Procedure: Operation Date: 07/17/24 15:00 Proposed Procedures p Laparoscopic Cholecystectomy - Trevor Hernandez MD Date/Time: 07/17/24 13:49 Surgeon: Trevor Hernandez MD Pre Op Diagnosis: acute calculus cholecystitis Patient Data Age: 64 Gender: M Height: 1.96 m Weight: 150 kg Allergies Allergy/AdvReac Type Severity Reaction Status Date / Time No Known Allergies Allergy Verified 07/17/24 13:52 Home Medications ?Medication ?Instructions ?Recorded ?Confirmed ?Type sertraline 100 mg tablet 100 mg PO DAILY 11/05/19 07/17/24 History tamsulosin 0.4 mg capsule 0.4 mg PO DAILY 04/12/20 07/17/24 History ferrous sulfate 27 mg iron tablet 27 mg PO DAILY 10/27/20 07/17/24 History omeprazole 40 mg capsule,delayed 40 mg PO DAILY 10/27/20 07/17/24 History release ondansetron 4 mg disintegrating 4 mg PO Q8H PRN nausea and 07/04/24 07/17/24 Rx tablet vomiting #14 tabs losartan 25 mg tablet 25 mg PO DAILY 07/17/24 07/17/24 History Laboratory Tests 07/17/24 13:26 Total Bilirubin Pending Direct Bilirubin Pending AST Pending ALT Pending Alkaline Phosphatase Pending Total Protein Pending Albumin Pending Amylase Pending Lipase Pending Patient hx anesthesia problems: none Family hx anesthesia problems: none Results Review: All pre-operative results and documents have been reviewed as part of the pre-operative evaluation. [facility] Past Medical History Medical History (Updated 07/17/24 @ 13:55 by Singh Preston DO) Hypertension Anxiety Sleep apnea Surgical History Surgical History History of gastric bypass Social History Social History (Updated 07/17/24 @ 08:28 by Lori Hawk MA) Smoking status: Never smoker Alcohol intake: current Drinks per week: 2 Substance use: never Substance use type: does not use Do You Feel Safe in your Home?: Yes Lack of Transportation: No Lack of Food: Never True Current Housing: Decline to Answer Concerned About Future Housing: Decline to Answer Difficulty Paying Gas/Electric Bills: Decline to Answer Difficulty Paying for Meds: Decline to Answer Currently Unemployed: Decline to Answer Education: Decline to Answer Difficulty w/ Childcare or Family Care: Decline to Answer Living arrangements: with family Gender identity (if verbalized by the patient): Male Sexual Orientation (if Verbalized by the Patient): Straight or Heterosexual Spiritual care concerns: No Anes - Eval Final PreProcedure Day of Procedure 07/17/24 13:49 Patient weight: obese Heart: regular rate and rhythm Lungs: clear to auscultation Airway: Mallampati scale class III Neurological: alert and oriented Last oral intake: >/= 8 hours ASA classification: III Emergent: no Anesthetic plan: proceed Anesthesia type and monitoring: general ETT and standard monitoring Results Review: All pre-operative results and documents have been reviewed as part of the pre-operative evaluation. Informed Consent: The patient's anesthetic plan and its attendant risks and benefits were discussed with the patient/family/POA. Questions were solicited and answers provided to the satisfaction of the patient/family/POA.
[2024-07-17 13:51] LABS: Alanine Aminotransferase 14 U/L (6-50); Alkaline Phosphatase 86 U/L (38-126); Amylase 54 U/L (30-110); Aspartate Amino Transferase 22 U/L (17-59); Bilirubin,Total 0.7 mg/dL (0.2-1.3); Lipase 38 U/L (23-300)
--- NOTE | 2024-07-17 13:51 | WPDHPUPDATE1 ---
History and Physical Update Update Date/Time: 07/17/24 13:51 History and Physical has been reviewed, including an updated exam of the patient. There are NO changes in the patient's condition. Risks, benefits, and alternatives have been discussed and questions answered. Patient agrees to proceed with procedure.
[2024-07-17] MEDS: LACTATED RINGERS 1,000 ML 30 ML IV CONT ×4 (13:56→19:40)
[2024-07-17] MEDS: BUPIVACAINE/EPINEPHRINE 0.5% 50 ML VIAL 30 ML INFILTRATE (14:40)
[2024-07-17] MEDS: ceFAZolin SODIUM 1 GM VIAL 2 GM IV PUSH (18:07)
[2024-07-17] MEDS: fentaNYL CITRATE INJ (*CRX) 100 MCG/2 ML VIAL 25 MCG IV PUSH ×6 (19:45→20:15)
--- NOTE | 2024-07-17 19:50 | P.OP_ITS ---
Procedure Note - Detailed Date of Procedure 07/17/24 Pre-op Diagnosis acute calculus cholecystitis Post-op Diagnosis Same (Acute on chronic cholecystitis, cholelithiasis) Procedure Performed Attempted laparoscopic cholecystectomy, laparoscopic placement of cholecystostomy tube Surgeon Trevor Hernandez MD/ Devi Gilbert M.D. [employer] Angelica NGUYEN, Yovana Mazariegos, BOW MAKING MACHINE OPERATOR Anesthesia General Indications Patient was in the emergency room on July 04 with severe epigastric pain. Imaging showed evidence of acute cholecystitis with gallstones. He was feeling better with analgesics and was discharged with antibiotics and pain medication. Unfortunately continued to have episodes of pain. I saw him for his emergency room follow up visit in the office this morning. He had been having such severe episodes of pain that he had nearly gone back to the emergency room because all of times. These episodes were occurring nearly daily. He was scheduled to proceed with laparoscopic cholecystectomy this afternoon. Findings Patient had extremely severe acute and chronic cholecystitis. His previous gastric bypass surgery had went to adhesions in the upper abdomen. Mainly though, his gallbladder was so chronically inflamed with dense thick fibrotic adhesions adherent to the gallbladder throughout. Additionally the adhesions were extremely bloody as was all of the dissection. Additionally, it appeared his stomach was adherent to the distal gallbladder. The transverse colon was dilated with air and after dissection of the thickened adhesions to the gallbladder, despite multiple efforts, I could not expose the infundibulum or the triangle of Calot. In trying to possibly take the gallbladder down from the fundus, adhesions and attachments to the liver were so severe that bleeding was going to be extensive. During the surgery, patient had significant oozing of blood although there was never any large vessel that bled but literally all the adhesions and attachments to the liver, of which there were many, bled and required cautery. The patient was on low-dose vasopressor agents per the Department of Anesthesia throughout the surgery. For all these operative findings as well as the patient's condition, cholecystectomy was not performed and a cholecystostomy tube was placed with multiple drains around the gallbladder. Our attempts at laparoscopic cholecystectomy and then subsequent laparoscopic placement of a cholecystostomy tube took 5 hours, over 3 times the length of time expected for even a difficult laparoscopic cholecystectomy. Description of Procedure Patient was taken to the operating room and induced into general anesthesia. Dr. Sawyer had volunteered to perform the surgery as I was delayed with another operation. He did go ahead and begin the operation with placement of typical trocars for laparoscopic cholecystectomy. He encountered such difficult adhesions that after spending considerable time, far more than would be required to perform laparoscopic cholecystectomy in almost any instance. The fundus of the gallbladder had been dissected but the liver was so adherent to underlying adhesions and overlying adhesions, that despite taking numerous of these adhesions down, the liver was still not able to be retracted. I finished with my surgery and then came in. Dr. Gilbert and I worked as co-surgeons during this time. Additional adhesions to the gallbladder and the liver were taken down. Another 5 mm port was placed in the right lower abdomen. Irrigation and suctioning were performed to achieve better hemostasis. Dr. Gilbert then turned the operation over to me as he had a personal commitment that, prior to surgery, would not have seemed to be an obstacle to performing the operation. Unfortunately, this was 1 of the most severely inflamed and diseased gallbladder is that either of us had seen. It took much longer than removal of the gallbladder takes and so then I assumed the role of operative surgeon. I con tinued taking down adhesions to the gallbladder and also trying to identify the wall of the gallbladder from the fundus on down. This was bloody as described above with persistent oozing. Bleeding was controlled as quickly as possible. However, using cautery as much as we were, visualization became difficult with all the smoke in the peritoneal cavity. We stop several times just to evacuate the smoke. Eventually the duke of the gallbladder from the fundus down to the lower gallbladder were exposed. However any farther down the gallbladder towards the infundibulum, more dense and bloody adhesions existed. Despite multiple attempts to continued the exposure, bleeding and smoke continued to obscure our view. Much of the reason for the obscuring of the infundibulum and triangle of Calot was due to the dense adhesions existing even after the had been dissected off the gallbladder and the undersurface of the liver. While it seems that we did not progress or get very far along in the cholecystectomy, the overall length of the surgery was nearly 5 hours which is at least 5 times longer than usual gallbladder surgeries and over 3 times longer for even difficult gallbladder surgeries. I did make an attempt to dissect the fundus of the gallbladder off the liver and perform a top down cholecystectomy. It was obvious that attempting to free fundus from the liver was going to result in significant additional bleeding. At this point, felt I had done as much as I safely could do and the best management would be to place a cholecystostomy tube. There was a small opening in the midportion of the gallbladder. I used an Endo Stitch and the Ethibond suture and created a pursestring around this opening. A 16 Turkmen Herman catheter with a 10 cc balloon was then passed through the abdominal wall and into the opening in the gallbladder. The balloon was inflated the tube was in good position. I tied down the Ethibond pursestring suture and it fit well around the cholecystostomy tube. I then placed two, 19 Turkmen, Ryland drains through 2 different 5 mm trocar sites and position the drains around the gallbladder and the subhepatic space. Once in good position, the drains were sutured to the skin with 2-0 silk. We decreased our insufflation and chose an appropriate length for our cholecystostomy tube. Once this was chosen, the cholecystostomy tube was sutured to the skin with 2-0 silk. We then evacuated CO2 and removed the trocar sleeves. Skin wounds were closed with subcuticular 4-0 Monocryl skin suture. The trocar site wounds were dressed with Exofin surgical adhesive. The 2 drains and the cholecystostomy tube exit sites were dressed with drain sponges. Patient was then awakened and taken to recovery in good condition. Sponge and needle counts were correct x2. Estimated Blood Loss -400 IV Fluids 3,200 Urine Output -100 Drains Yes (Nineteen Turkmen Ryland drains right upper quadrant x2, cholecystostomy tube) Packing No Pathology None sent Complications None Condition Stable Disposition PACU [facility] Billing Surgery - Charge Forward: Surgery Billing (Attempted laparoscopic cholecystectomy, laparoscopic placement of cholecystostomy tube-add 22 modifier for increased difficulty)
--- NOTE | 2024-07-17 21:11 | ADMGEN ---
This patient, Donnie Cates Jr., was admitted to [facility] Surg Room 326-01. Patient/family oriented to hospital policies and general routines including ID bracelet, bed and alarms, visiting hours, pain management, procedures, bathroom and other care routines, personal items, smoking policy, room service/diet, and visiting hours. Information on how to activate the Rapid Response Team has been discussed. Patient/Family are encouraged to report perceived risks to care and to ask questions if they do not understand what they are told or what they should do.
[2024-07-17] MEDS: LACTATED RINGERS 1,000 ML 150 ML IV CONT (21:40)
[2024-07-17] MEDS: TAMSULOSIN HCL 0.4 MG CAPSULE PO (21:41)
[2024-07-17] MEDS: MORPHINE SULFATE (*CRX) 4 MG/ML INJ IV PUSH (22:21)
[2024-07-17] MEDS: metroNIDAZOLE 500 MG/ISO 100ML 500 MG/100 ML BAG 100 MG IVPB (22:26)
[2024-07-18 00:09] VITALS: PULSE 92; RESP 16; O2SAT 95
[2024-07-18] MEDS: oxyCODONE/ACETAMINOPHEN (*CRX) 5-325 MG TABLET 1 TABLET PO ×4 (01:09→21:36)
[2024-07-18 01:22] VITALS: BP 132/86; PULSE 81; RESP 20; TEMP 36.8; O2SAT 93
[2024-07-18] MEDS: MORPHINE SULFATE (*CRX) 4 MG/ML INJ IV PUSH ×3 (03:03→17:16)
[2024-07-18 05:57] VITALS: BP 125/75; PULSE 79; RESP 20; TEMP 37.2; O2SAT 95
[2024-07-18] MEDS: LACTATED RINGERS 1,000 ML 150 ML IV CONT (06:07)
[2024-07-18] MEDS: metroNIDAZOLE 500 MG/ISO 100ML 500 MG/100 ML BAG 100 MG IVPB ×3 (06:08→22:27)
[2024-07-18 06:18] LABS: Hematocrit 42.8 % (42.0-52.0); Hemoglobin 13.5 g/dL (14.0-18.0); Mean Corpuscular HGB Conc 31.5 g/dl (32-36); Mean Corpuscular Volume 91.8 fl (80-100); Mean Platelet Volume 10.1 fl (7.4-10.4); Platelet Count Result 301 k/mm3 (150-375); Red Blood Count 4.66 M/mm3 (4.6-6.20); Red Cell Distribution Width 12.8 % (11.5-14.5); White Blood Count 15.1 K/mm3 (4.5-10.0)
[2024-07-18 06:30] LABS: Alanine Aminotransferase 19 U/L (6-50); Albumin Level 3.4 g/dL (3.5-5.1); Alkaline Phosphatase 71 U/L (38-126); Anion Gap 10 mmol/L (4-12); Aspartate Amino Transferase 34 U/L (17-59); Bilirubin,Total 0.6 mg/dL (0.2-1.3); Blood Urea Nitrogen 17 mg/dL (9-20); CRP 7.5 mg/dL (<1.0); Calcium 8.6 mg/dL (8.4-10.2); Carbon Dioxide 24 mmol/L (22-30); Chloride 97 mmol/L (98-107); Estimated CRCL calculation 106 ml/min; Estimated Glomerular Filt Rate > 60; Glucose 109 mg/dL (65-110); Potassium 4.9 mmol/L (3.4-5.0); Sodium 131 mmol/L (137-145)
[2024-07-18] MEDS: SERTRALINE HCL 50 MG TABLET 100 MG PO (08:35)
[2024-07-18] MEDS: PANTOPRAZOLE 40 MG TABLET PO (08:36)
[2024-07-18] MEDS: LOSARTAN POTASSIUM 25 MG TABLET PO (08:36)
[2024-07-18] MEDS: ENOXAPARIN 40 MG/0.4 ML SYRINGE SUB-Q (08:36)
[2024-07-18] MEDS: SODIUM CHLORIDE 0.9% IV 1,000 ML 80 ML IV CONT (10:03)
[2024-07-18] MEDS: buPROPion HCL XL (24 HR) 150 MG TABCR PO (10:03)
--- NOTE | 2024-07-18 10:46 | PM.PNGS ---
Progress Note: A&P Assessment and Plan (1) Calculus of gallbladder with acute and chronic cholecystitis with obstruction: Code(s): K80.13 - Calculus of gallbladder with acute and chronic cholecystitis with obstruction Status: Acute Assessment and Plan: Patient experiencing severe and frequently recurrent abdominal pain. Presented to my office yesterday morning with several recurrent episodes of severe right upper quadrant and epigastric pain, back pain. He almost went to the emergency room a couple of different times. He is having this pain daily or every other day. It does not matter what he was eating. He was taken to surgery yesterday afternoon and laparoscopic cholecystectomy it was attempted but could not be completed due to dense and difficult adhesions, difficult body habitus, bleeding associated with adhesiolysis. Laparoscopic cholecystostomy tube was placed as well as [place] drains. Currently on IV antibiotics and clear liquids. He is tolerating the clear liquids without pain or nausea but is still afraid to eat after his difficult episodes of severe pain prior to surgery. (2) H/O insertion of cholecystostomy tube: Code(s): Z98.890 - Other specified postprocedural states Status: Acute Assessment and Plan: Placed laparoscopic [place] last evening. Little or no drainage per nursing. Will get this output added to the [facility] graphics. (3) S/P laparoscopy with lysis of adhesions: Code(s): Z98.890 - Other specified postprocedural states Status: Acute Assessment and Plan: This was associated with attempts to remove his gallbladder. Very difficult as described above. Involved gallbladder liver colon and stomach. (4) History of gastric bypass: Code(s): Z98.84 - Bariatric surgery status Status: Chronic Assessment and Plan: Patient had this several years ago and lost 200 lb which she has mostly kept off. (5) Morbid obesity with BMI of 40.0-44.9, adult: Code(s): E66.01 - Morbid (severe) obesity due to excess calories; Z68.41 - Body mass index [BMI] 40.0-44.9, adult Status: Chronic Assessment and Plan: BMI 45 in my office and 40 by hospital measurements. (6) BPH (benign prostatic hyperplasia): Qualifiers: Lower urinary tract symptom presence: unspecified whether lower urinary tract symptoms present Qualified Code(s): N40.0 - Benign prostatic hyperplasia without lower urinary tract symptoms Code(s): N40.0 - Benign prostatic hyperplasia without lower urinary tract symptoms Status: Chronic Assessment and Plan: Continue home meds (7) Sleep apnea: Qualifiers: Sleep apnea type: unspecified type Qualified Code(s): G47.30 - Sleep apnea, unspecified Code(s): G47.30 - Sleep apnea, unspecified Status: Chronic (8) Hypertension: Qualifiers: Hypertension type: unspecified Qualified Code(s): I10 - Essential (primary) hypertension Code(s): I10 - Essential (primary) hypertension Status: Chronic Assessment and Plan: Continue home meds Subjective Subjective Date/Time Seen: 07/18/24 10:46 Post Op day: 1 Patient reports: still having pain (Right upper quadrant and drain sites), tolerating liquids well (Still afraid to eat much due to the pain he was experiencing prior to surgery), voiding w/o difficulty, no bowel movement and afebrile Exam Const: General: cooperative, comfortable, no acute distress, alert, awake and obese Nutritional Appearance: obese Orientation/consciousness: patient oriented x3 GI: Inspection: no abdominal wall ecchymosis, incision (Dry and healing, serosanguineous TEETEE output), obesity, scar and other (Small, dark green output per cholecystostomy tube) GI Palp: Yes Soft to palpation, Yes Tenderness to palpation present (GI) (Mostly right upper quadrant), Yes Guarding due to palpation present (GI), No Hernia present and No Palpable mass present Objective Data Vital Signs Vital Signs: Vital Signs - 24 hr 07/17/24 13:54 07/17/24 19:38 07/17/24 19:45 Temperature 36.9 C 37.0 C Pulse Rate 77 96 88 Respiratory Rate 16 18 17 Blood Pressure 102/80 116/71 119/78 Pulse Oximetry 97 99 97 Oxygen Delivery Room Air Simple Face Mask Simple Face Mask Oxygen Flow Rate 8 8 07/17/24 20:00 07/17/24 20:15 07/17/24 20:25 Temperature Pulse Rate 86 83 85 Respiratory Rate 18 18 15 Blood Pressure 132/91 H 135/78 123/83 Pulse Oximetry 98 95 95 Oxygen Delivery Room Air Nasal Cannula Nasal Cannula Oxygen Flow Rate 2 2 07/17/24 21:00 07/17/24 21:11 07/17/24 22:07 Temperature 36.5 C 36.8 C Pulse Rate 87 85 87 Respiratory Rate 20 20 20 Blood Pressure 132/83 119/81 Pulse Oximetry 95 96 95 Oxygen Delivery Nasal Cannula Oxygen Flow Rate 2 07/18/24 00:09 07/18/24 01:22 07/18/24 05:57 Temperature 36.8 C 37.2 C Pulse Rate 92 81 79 Respiratory Rate 16 20 20 Blood Pressure 132/86 125/75 Pulse Oximetry 95 93 95 Oxygen Delivery Nasal Cannula Oxygen Flow Rate 2 07/18/24 08:35 Temperature Pulse Rate Respiratory Rate Blood Pressure Pulse Oximetry Oxygen Delivery Room Air Oxygen Flow Rate Intake/Output Intake/Output: Intake & Output 07/15/24 07/16/24 07/17/24 07/18/24 23:59 23:59 23:59 23:59 Intake Total 3450 2550 Output Total -70 675 Balance 3520 1875 Meds/Results Medications: Active Medications Generic Name Dose Route Start Last Admin Trade Name Freq PRN Reason Stop Dose Admin Acetaminophen 500 mg 07/17/24 20:26 Acetaminophen 500 Mg Tablet PO Q6H PRN Pain Rated 1-3 Bupropion HCl 150 mg 07/18/24 09:45 07/18/24 10:03 Bupropion Hcl Xl (24 Hr) 150 Mg Tabcr PO 150 mg DAILY JAVIER Administration Enoxaparin Sodium 40 mg 07/18/24 09:00 07/18/24 08:36 Enoxaparin 40 Mg/0.4 Ml Syringe SUB-Q 40 mg DAILY JAVIER Administration Ibuprofen 800 mg in 200 mls @ 400 mls/hr 07/17/24 20:26 Caldolor 800 Mg/200 Ml IVPB Q6H PRN Breakthrough Pain Rated 1-3 or NPO Ceftriaxone Sodium 1 gm in 50 mls @ 100 mls/hr 07/17/24 21:00 07/17/24 22:11 Rocephin 1 Gm/Ns 50 Ml IVPB Infused Q24H JAVIER Infusion Metronidazole 500 mg in 100 mls @ 100 mls/hr 07/17/24 22:00 07/18/24 06:08 Flagyl 500 Mg/Iso Soln 100 Ml IVPB 100 mls/hr Q8HR JAVIER Administration Sodium Chloride 1,000 mls @ 80 mls/hr 07/18/24 09:45 07/18/24 10:03 Normal Saline Iv IV CONT 80 mls/hr .[id number] JAVIER Administration Losartan Potassium 25 mg 07/18/24 09:00 07/18/24 08:36 Losartan Potassium 25 Mg Tablet PO 25 mg DAILY JAVIER Administration Morphine Sulfate 2 mg 07/17/24 20:26 Morphine Sulfate (*Crx) 2 Mg/Ml Inj IV PUSH Q2H PRN Breakthrough Pain Rated 4-6 or NPO Morphine Sulfate 4 mg 07/17/24 20:26 07/18/24 06:11 Morphine Sulfate (*Crx) 4 Mg/Ml Inj IV PUSH 4 mg Q2H PRN Administration Breakthrough Pain Rated 7-10 or NPO Naloxone HCl 0.1 mg 07/17/24 20:26 Naloxone Hcl 0.4 Mg/Ml Vial IV PUSH Q2M PRN Opiate Reversal Ondansetron HCl 4 mg 07/17/24 20:26 Ondansetron Inj 4 Mg/2 Ml Vial IV PUSH Q4H PRN Nausea And Vomiting Oxycodone/Acetaminophen 1 tablet 07/17/24 20:26 07/18/24 06:10 Oxycodone/Acetaminophen (*Crx) 5-325 Mg Tablet PO 1 tablet Q4H PRN Administration Pain Rated 4-6 Pantoprazole Sodium 40 mg 07/18/24 09:00 07/18/24 08:36 Pantoprazole 40 Mg Tablet PO 40 mg QAM JAVIER Administration Sertraline HCl 100 mg 07/18/24 09:00 07/18/24 08:35 Sertraline Hcl 50 Mg Tablet PO 100 mg DAILY JAVIER Administration Tamsulosin HCl 0.4 mg 07/17/24 21:25 07/17/24 21:41 Tamsulosin Hcl 0.4 Mg Capsule PO 0.4 mg HS JAVIER Administration Labs Labs: Laboratory Results - last 24 hr 07/17/24 07/18/24 13:26 05:53 WBC 15.1 H RBC 4.66 Hgb 13.5 L Hct 42.8 MCV 91.8 MCH 29.0 MCHC 31.5 L RDW 12.8 Plt Count 301 MPV 10.1 Sodium 131 L Potassium 4.9 Chloride 97 L Carbon Dioxide 24 Anion Gap 10 BUN 17 Creatinine 1.05 Estim Creat Clear Calc 106 Estimated GFR > 60 Glucose 109 Calcium 8.6 Total Bilirubin 0.7 0.6 Direct Bilirubin 0.0 AST 22 34 ALT 14 19 Alkaline Phosphatase 86 71 C-Reactive Protein 7.5 H Total Protein 7.0 6.0 L Albumin 4.0 3.4 L Amylase 54 Lipase 38
--- NOTE | 2024-07-18 12:38 | WPDANESPN ---
Anes - Prog Note Post-Op Date/Time: 07/18/24 12:38 Cardiovascular status: normal Respiratory status: normal Airway patency: baseline Mental status: baseline Post-Op hydration status: normal Vital Signs: Last Vital Signs Temp 37.2 C 07/18/24 05:57 Pulse 79 07/18/24 05:57 Resp 20 07/18/24 05:57 BP 125/75 07/18/24 05:57 Pulse Ox 95 07/18/24 05:57 O2 Del Method Room Air 07/18/24 08:35 O2 Flow Rate 2 07/18/24 00:09 Pain Score (VAS): 3 I/O: Intake & Output 07/17/24 07/18/24 07/18/24 23:59 07:59 15:59 Intake Total 3350 2310 240 Output Total -70 665 10 Balance 3420 1645 230 Laboratory Tests 07/18/24 05:53 07/18/24 05:53 07/17/24 07/18/24 13:26 05:53 WBC 15.1 H RBC 4.66 Hgb 13.5 L Hct 42.8 MCV 91.8 MCH 29.0 MCHC 31.5 L RDW 12.8 Plt Count 301 MPV 10.1 Sodium 131 L Potassium 4.9 Chloride 97 L Carbon Dioxide 24 Anion Gap 10 BUN 17 Creatinine 1.05 Estim Creat Clear Calc 106 Estimated GFR > 60 Glucose 109 Calcium 8.6 Total Bilirubin 0.7 0.6 Direct Bilirubin 0.0 AST 22 34 ALT 14 19 Alkaline Phosphatase 86 71 C-Reactive Protein 7.5 H Total Protein 7.0 6.0 L Albumin 4.0 3.4 L Amylase 54 Lipase 38 Post-procedural complaints: none Patient Feedback: Patient satisfied with anesthetic care.
--- NOTE | 2024-07-18 13:40 | P.CONIM_ITS ---
Assessment and Plan Assessment and plan (1) Acute calculous cholecystitis: Code(s): K80.00 - Calculus of gallbladder with acute cholecystitis without obstruction Status: Acute Assessment and Plan: Postoperative day 1 status post adhesiolysis and cholecystostomy tube and Ryland drain insertion. Wound care, pain control, and DVT prophylaxis deferred to primary service. Continue ceftriaxone and metronidazole. L (2) Hypertension: Qualifiers: Hypertension type: unspecified Qualified Code(s): I10 - Essential (primary) hypertension Code(s): I10 - Essential (primary) hypertension Status: Chronic Assessment and Plan: Blood pressures were reviewed and they have been stable. Continue losartan 25 mg and monitor daily. L (3) Benign prostatic hyperplasia: Code(s): N40.0 - Benign prostatic hyperplasia without lower urinary tract symptoms Status: Acute Assessment and Plan: Bladder scan p.r.n. Continue tamsulosin 0.4 mg daily. L (4) Gastroesophageal reflux disease: Code(s): K21.9 - Gastro-esophageal reflux disease without esophagitis Status: Acute Assessment and Plan: No acute issues, continue PPI. L (5) Depression with anxiety: Code(s): F41.8 - Other specified anxiety disorders Status: Acute Assessment and Plan: No acute issues, continue sertraline and bupropion. L (6) Obstructive sleep apnea: Code(s): G47.33 - Obstructive sleep apnea (adult) (pediatric) Status: Acute Assessment and Plan: CPAP will be provided for the patient to use while hospitalized if in fact he uses it at home. L Plan Thank you for allowing us to participate in this patient's care. Please do not hesitate to contact us with any questions. HPI Date of Consult Consult date: 07/18/24 Requesting Physician: Trevor Hernandez MD Consult Narrative Reason for consult: medical management Narrative: This is a 64-year-old male with history of hypertension, benign prostatic hyperplasia, iron deficiency anemia, gastroesophageal reflux disease, obstructive sleep apnea, depression, and anxiety whom the hospitalist service has been consulted for help managing his medical conditions postoperatively. He saw Dr. Hernandez in the office yesterday morning with severe, recurrent episodes of right upper quadrant abdominal pain for which he was taken to surgery yesterday for a planned laparoscopic cholecystectomy. Due to several factors including dense and difficult adhesions, bleeding associated with adhesiolysis, and the patient's body habitus, a laparoscopic cholecystostomy tube and Ryland drains were placed and he was started on IV antibiotics. He is tolerating clear liquids without pain or nausea but is hesitant to eat due to the severe plain he was having prior to surgery. Nursing staff reports little drainage from his tube. At the time my evaluation he is doing fair. He is eager to have the gallbladder taken out and is wondering if perhaps transferred to [facility] may be appropriate. He reports having a low-grade fever and intermittent feelings of being both hot and cold. No vomiting. Review of Systems 2 Review of Systems: 12 systems were reviewed and are negativ e except for as per HPI. 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 Code status: Full code. Smoking status: Never smoker Alcohol intake: current Drinks per week: 1 Substance use: never Substance use type: does not use Do You Feel Safe in your Home?: Yes Lack of Transportation: No Lack of Food: Never True Current Housing: I Have Housing Concerned About Future Housing: Decline to Answer Difficulty Paying Gas/Electric Bills: No Difficulty Paying for Meds: No Currently Unemployed: No Education: Bachelor's Degree Difficulty w/ Childcare or Family Care: No Living arrangements: with family Spiritual care concerns: No Meds Home Medications and Allergies Home Medications ?Medication ?Instructions ?Recorded ?Confirmed ?Type sertraline 100 mg tablet 100 mg PO DAILY 11/05/19 07/17/24 History tamsulosin 0.4 mg capsule 0.4 mg PO DAILY 04/12/20 07/17/24 History ferrous sulfate 27 mg iron tablet 27 mg PO DAILY 10/27/20 07/17/24 History omeprazole 40 mg capsule,delayed 40 mg PO DAILY 10/27/20 07/17/24 History release ondansetron 4 mg disintegrating 4 mg PO Q8H PRN nausea and 07/04/24 07/17/24 Rx tablet vomiting #14 tabs losartan 25 mg tablet 25 mg PO DAILY 07/17/24 07/17/24 History bupropion HCl 150 mg 24 hr tablet, 150 mg PO DAILY 07/18/24 07/18/24 History extended release Allergies Allergy/AdvReac Type Severity Reaction Status Date / Time No Known Allergies Allergy Verified 07/17/24 13:52 Vital Signs Vital Signs - 24 hr 07/17/24 13:54 07/17/24 19:38 07/17/24 19:45 Temperature 98.5 F 98.6 F Pulse Rate 77 96 88 Respiratory Rate 16 18 17 Blood Pressure 102/80 116/71 119/78 Pulse Oximetry 97 99 97 Oxygen Delivery Room Air Simple Face Mask Simple Face Mask Oxygen Flow Rate 8 8 07/17/24 20:00 07/17/24 20:15 07/17/24 20:25 Temperature Pulse Rate 86 83 85 Respiratory Rate 18 18 15 Blood Pressure 132/91 H 135/78 123/83 Pulse Oximetry 98 95 95 Oxygen Delivery Room Air Nasal Cannula Nasal Cannula Oxygen Flow Rate 2 2 07/17/24 21:00 07/17/24 21:11 07/17/24 22:07 Temperature 97.7 F 98.2 F Pulse Rate 87 85 87 Respiratory Rate 20 20 20 Blood Pressure 132/83 119/81 Pulse Oximetry 95 96 95 Oxygen Delivery Nasal Cannula Oxygen Flow Rate 2 07/18/24 00:09 07/18/24 01:22 07/18/24 05:57 Temperature 98.3 F 99.0 F Pulse Rate 92 81 79 Respiratory Rate 16 20 20 Blood Pressure 132/86 125/75 Pulse Oximetry 95 93 95 Oxygen Delivery Nasal Cannula Oxygen Flow Rate 2 07/18/24 08:35 Temperature Pulse Rate Respiratory Rate Blood Pressure Pulse Oximetry Oxygen Delivery Room Air Oxygen Flow Rate Exam 2 Narrative: General: Mildly ill-appearing male sitting in a chair at side of the bed. Weight: 156 kg. BMI: 40.8. HEENT: PERRL, EOMI. Sclera anicteric. Tacky mucous membranes. Neck: Supple. Respiratory: Lungs are clear to auscultation bilaterally. Cardiovascular: Regular rate and rhythm with S1-S2. Gastrointestinal: Abdomen is soft and slightly distended with hypoactive bowel sounds. Cholecystostomy tube draining a small amount of bloody appearing fluid. Skin: Warm and dry. Extremities: No cyanosis, clubbing, or significant edema. Radial and pedal pulses intact. Neurological: Alert. Cranial nerves 2-12 are grossly intact. No gross focal deficits to casual conversation. Psychiatric: Appropriate mood and affect. Results Labs 07/18/24 05:53 07/18/24 05:53 Labs: Short CBC 07/18/24 Range/Units 05:53 WBC 15.1 H (4.5-10.0) K/mm3 Hgb 13.5 L (14.0-18.0) g/dL Hct 42.8 (42.0-52.0) % Plt Count 301 (150-375) k/mm3 BMP 07/18/24 05:53 Sodium 131 L Potassium 4.9 Chloride 97 L Carbon Dioxide 24 BUN 17 Creatinine 1.05 Glucose 109 Calcium 8.6 Liver Function 07/17/24 07/18/24 Range/Units 13:26 05:53 Total Bilirubin 0.7 0.6 (0.2-1.3) mg/dL Direct Bilirubin 0.0 (0-0.3) mg/dL AST 22 34 (17-59) U/L ALT 14 19 (6-50) U/L Alkaline Phosphatase 86 71 (38-126) U/L Albumin 4.0 3.4 L (3.5-5.1) g/dL Hospitalist MIPS Advance Care Plan I have confirmed that the patient's Advanced Care Plan is present, code status is documented, or surrogate decision maker is listed in patient medical record.: Yes Medication Reconciliation I have utilized all available resources to obtain, update and review the patients current medications (includes all prescriptions, OTC, herbals, cannabis, and nutritional supplements).: Yes
[2024-07-18 14:00] VITALS: BP 121/76; PULSE 106; RESP 18; TEMP 37.1; O2SAT 91
[2024-07-18 20:00] VITALS: PULSE 103; RESP 20; O2SAT 95
[2024-07-18 21:04] VITALS: BP 110/70; PULSE 103; RESP 20; TEMP 38.1; O2SAT 95
[2024-07-18] MEDS: TAMSULOSIN HCL 0.4 MG CAPSULE PO (21:14)
[2024-07-19] VITALS (8 sets, daily range): BP systolic 96–126; BP diastolic 62–78; PULSE 91–111; RESP 16–20; TEMP 35.8–37.7; O2SAT 90–93
[2024-07-19] MEDS: SODIUM CHLORIDE 0.9% IV 1,000 ML 80 ML IV CONT (01:38)
[2024-07-19] MEDS: oxyCODONE/ACETAMINOPHEN (*CRX) 5-325 MG TABLET 1 TABLET PO ×3 (05:54→20:08)
[2024-07-19] MEDS: metroNIDAZOLE 500 MG/ISO 100ML 500 MG/100 ML BAG 100 MG IVPB ×3 (05:58→22:39)
[2024-07-19] MEDS: MORPHINE SULFATE (*CRX) 4 MG/ML INJ IV PUSH ×3 (06:14→20:07)
[2024-07-19 06:29] LABS: Hematocrit 44.8 % (42.0-52.0); Hemoglobin 13.6 g/dL (14.0-18.0); Mean Corpuscular HGB Conc 30.4 g/dl (32-36); Mean Corpuscular Hemoglobin 29.1 pg (26-34); Mean Corpuscular Volume 95.9 fl (80-100); Mean Platelet Volume 9.6 fl (7.4-10.4); Platelet Count Result 268 k/mm3 (150-375); Red Blood Count 4.67 M/mm3 (4.6-6.20); Red Cell Distribution Width 13.3 % (11.5-14.5)
[2024-07-19 06:50] LABS: Alanine Aminotransferase 15 U/L (6-50); Albumin Level 3.1 g/dL (3.5-5.1); Alkaline Phosphatase 68 U/L (38-126); Anion Gap 10 mmol/L (4-12); Aspartate Amino Transferase 24 U/L (17-59); Bilirubin,Total 0.8 mg/dL (0.2-1.3); Blood Urea Nitrogen 22 mg/dL (9-20); Calcium 8.5 mg/dL (8.4-10.2); Carbon Dioxide 22 mmol/L (22-30); Chloride 97 mmol/L (98-107); Estimated CRCL calculation 79 ml/min; Estimated Glomerular Filt Rate 50; Glucose 97 mg/dL (65-110); Magnesium 2.2 mg/dL (1.6-2.3); Potassium 4.6 mmol/L (3.4-5.0); Sodium 129 mmol/L (137-145)
[2024-07-19] MEDS: buPROPion HCL XL (24 HR) 150 MG TABCR PO (09:53)
[2024-07-19] MEDS: ENOXAPARIN 40 MG/0.4 ML SYRINGE SUB-Q (09:53)
[2024-07-19] MEDS: LOSARTAN POTASSIUM 25 MG TABLET PO (09:53)
[2024-07-19] MEDS: SERTRALINE HCL 50 MG TABLET 100 MG PO (09:53)
[2024-07-19] MEDS: PANTOPRAZOLE 40 MG TABLET PO (09:53)
[2024-07-19 12:21] LABS: Lactic Acid Reflex 3.1 mmol/L (0.7-2.0)
--- NOTE | 2024-07-19 13:19 | WPDPN ---
Progress Note: A&P Assessment and Plan (1) Acute calculous cholecystitis: Code(s): K80.00 - Calculus of gallbladder with acute cholecystitis without obstruction Status: Acute Assessment and Plan: Postoperative day 2 after aborted laparoscopic cholecystectomy and laparoscopic placement of a cholecystostomy tube due to severe adhesions and severe inflammation by Dr. Hernandez.. Today the patient seems to be more distended his white blood cell count has elevated at 17,000 thousand. I am going to get a CT scan abdomen pelvis without contrast. His creatinine has gone up to 1.4 today. This may be a result of incomplete resuscitation. He did have over 400cc blood loss during the surgery. We will go ahead and give him a 1L normal saline bolus now. Will also give a Dulcolax suppository and start him on some stool softeners. He does have a history of constipation after taking narcotics. Dr. Lombardo has contacted hepatobiliary surgery at [facility] to discuss the patient's subsequent need for a cholecystectomy. As of right now there is no definitive plan for further surgery right now. We will need to watch the patient very closely if he further deteriorates then he may need transfer to a higher level of care initially to the intensive care unit here at [facility] and then if transfer to higher level care to a tertiary care center [place] is necessary then will seek emergent transfer. I did stop his Rocephin and change him to Zosyn for IV antibiotics. Subjective Date/time seen: 07/19/24 13:19 Interval history: Patient is postoperative day 2 after attempted laparoscopic cholecystectomy converted to a laparoscopic placement of a cholecystostomy tube. The acute on chronic cholecystitis was so severe with such severe adhesions of the stomach and colon to the gallbladder and adhesions of the liver that the critical view of safety could not be achieved and a cholecystostomy tube was placed laparoscopically as a temporizing measure. Today the patient complains of additional bloating and some upper abdominal pain. He has been taking narcotic pain medications. He states that in the past when he has taken narcotic pain medications he has become very constipated. He has not had a bowel movement or passed any gas yet. White blood cell count is gone from 15,017 1000 today. He has slight tachycardia with a pulse rate up to 108. Last systolic blood pressure was in the mid 90s but he was given some fluid earlier in a did respond to fluid bolus. When I saw him in the room he was sitting up in a chair and had been trying to eat his full liquid diet. He did tolerate breakfast which was full liquids without any difficulty. He did not appear to be in acute distress. Exam GI: Other: The abdomen is obese and moderately distended. It is somewhat tympanitic. Laparoscopic incisions are dry and dressed. TEETEE drains x2 in place. Most of the drainage is serosanguineous without obvious large amounts of bile. Cholecystostomy tube in place with drainage of small amount of typical nonpurulent bile. Expected tenderness at the drain sites and port sites but no generalized peritoneal signs. Objective Data Vital Signs Vital Signs: Vital Signs - 24 hr 07/18/24 14:00 07/18/24 20:00 07/18/24 21:04 Temperature 37.1 C 38.1 C H Pulse Rate 106 H 103 H 103 H Respiratory Rate 18 20 20 Blood Pressure 121/76 110/70 Pulse Oximetry 91 95 95 Oxygen Delivery Room Air 07/19/24 06:00 07/19/24 10:40 07/19/24 10:54 Temperature 37.6 C H 37.2 C Pulse Rate 96 91 Respiratory Rate 20 Blood Pressure 97/66 L 120/78 Pulse Oximetry 93 93 Oxygen Delivery Room Air Room Air 07/19/24 12:00 07/19/24 12:50 Temperature 37.7 C H 37.7 C H Pulse Rate 108 H 108 H Respiratory Rate 16 16 Blood Pressure 96/62 L 96/62 L Pulse Oximetry 92 92 Oxygen Delivery Intake/Output Intake/Output: Intake & Output 07/16/24 07/17/24 07/18/24 07/19/24 23:59 23:59 23:59 23:59 Intake Total 3450 5880 2046 Output Total -70 1810 810 Balance 3520 4070 1236 Meds/Results Medications: Active Medications Generic Name Dose Route Start Last Admin Trade Name Freq PRN Reason Stop Dose Admin Acetaminophen 500 mg 07/17/24 20:26 Acetaminophen 500 Mg Tablet PO Q6H PRN Pain Rated 1-3 Bisacodyl 10 mg 07/19/24 12:58 Bisacodyl 10 Mg Suppository RECTAL QAM PRN Constipation Bupropion HCl 150 mg 07/20/24 09:00 Bupropion Hcl Xl (24 Hr) 150 Mg Tabcr PO QAM JAVIER Docusate Sodium 100 mg 07/19/24 12:00 Docusate Sodium 100 Mg Capsule PO Q12HR JAVIER Enoxaparin Sodium 40 mg 07/18/24 09:00 07/19/24 09:53 Enoxaparin 40 Mg/0.4 Ml Syringe SUB-Q 40 mg DAILY JAVIER Administration Ibuprofen 800 mg in 200 mls @ 400 mls/hr 07/17/24 20:26 Caldolor 800 Mg/200 Ml IVPB Q6H PRN Breakthrough Pain Rated 1-3 or NPO Metronidazole 500 mg in 100 mls @ 100 mls/hr 07/17/24 22:00 07/19/24 07:00 Flagyl 500 Mg/Iso Soln 100 Ml IVPB Infused Q8HR JAVIER Infusion Sodium Chloride 1,000 mls @ 125 mls/hr 07/18/24 09:45 07/19/24 12:50 Normal Saline Iv IV CONT 125 mls/hr .Q8H JAVIER Infusion Piperacillin Sod/Tazobactam Sod 4.5 gm in 100 mls @ 200 mls/hr 07/19/24 13:00 Zosyn 4.5 Gm/Ns 100 Ml IVPB 07/19/24 13:29 ONCE ONE Piperacillin Sod/Tazobactam Sod 4.5 gm in 100 mls @ 200 mls/hr 07/19/24 18:00 Zosyn 4.5 Gm/Ns 100 Ml IVPB Q6HR JAVIER Sodium Chloride 1,000 mls @ 999 mls/hr 07/19/24 13:00 Normal Saline Iv IV CONT 07/19/24 14:00 .Q1H1M ONE Losartan Potassium 25 mg 07/18/24 09:00 07/19/24 09:53 Losartan Potassium 25 Mg Tablet PO 25 mg DAILY JAVIER Administration Morphine Sulfate 2 mg 07/17/24 20:26 Morphine Sulfate (*Crx) 2 Mg/Ml Inj IV PUSH Q2H PRN Breakthrough Pain Rated 4-6 or NPO Morphine Sulfate 4 mg 07/17/24 20:26 07/19/24 06:14 Morphine Sulfate (*Crx) 4 Mg/Ml Inj IV PUSH 4 mg Q2H PRN Administration Breakthrough Pain Rated 7-10 or NPO Naloxone HCl 0.1 mg 07/17/24 20:26 Naloxone Hcl 0.4 Mg/Ml Vial IV PUSH Q2M PRN Opiate Reversal Ondansetron HCl 4 mg 07/17/24 20:26 Ondansetron Inj 4 Mg/2 Ml Vial IV PUSH Q4H PRN Nausea And Vomiting Oxycodone/Acetaminophen 1 tablet 07/17/24 20:26 07/19/24 11:30 Oxycodone/Acetaminophen (*Crx) 5-325 Mg Tablet PO 1 tablet Q4H PRN Administration Pain Rated 4-6 Pantoprazole Sodium 40 mg 07/18/24 09:00 07/19/24 09:53 Pantoprazole 40 Mg Tablet PO 40 mg QAM JAVIER Administration Sertraline HCl 100 mg 07/18/24 09:00 07/19/24 09:53 Sertraline Hcl 50 Mg Tablet PO 100 mg DAILY JAVIER Administration Tamsulosin HCl 0.4 mg 07/17/24 21:25 07/18/24 21:14 Tamsulosin Hcl 0.4 Mg Capsule PO 0.4 mg HS JAVIER Administration Labs Labs: Laboratory Results - last 24 hr 07/19/24 07/19/24 06:08 12:02 WBC 17.0 H RBC 4.67 Hgb 13.6 L Hct 44.8 MCV 95.9 MCH 29.1 MCHC 30.4 L RDW 13.3 Plt Count 268 MPV 9.6 Sodium 129 L Potassium 4.6 Chloride 97 L Carbon Dioxide 22 Anion Gap 10 BUN 22 H Creatinine 1.43 H Estim Creat Clear Calc 79 Estimated GFR 50 L Glucose 97 Lactic Acid 3.1 H Calcium 8.5 Magnesium 2.2 Total Bilirubin 0.8 AST 24 ALT 15 Alkaline Phosphatase 68 Total Protein 6.0 L Albumin 3.1 L
[2024-07-19] MEDS: BISACODYL 10 MG SUPPOSITORY RECTAL (13:22)
[2024-07-19] MEDS: SODIUM CHLORIDE 0.9% IV 1,000 ML 999 ML IV CONT (13:22)
[2024-07-19] MEDS: DOCUSATE SODIUM 100 MG CAPSULE PO ×2 (13:22→20:10)
[2024-07-19 14:13] LABS: Reflex Lactic Acid Yes or No Add Lactic
[2024-07-19] MEDS: PIPERACILLIN/TAZ 4.5G/NS 100ML 4.5 GM/100 ML BAG IVPB ×2 (14:29→17:11)
[2024-07-19] MEDS: SODIUM CHLORIDE 0.9% IV 1,000 ML 150 ML IV CONT ×2 (14:34→20:33)
--- NOTE | 2024-07-19 14:47 | P.PNIM_ITS ---
Progress Note: A&P Assessment and Plan (1) Acute calculous cholecystitis: Code(s): K80.00 - Calculus of gallbladder with acute cholecystitis without obstruction Status: Acute Assessment and Plan: Postoperative day 1 status post adhesiolysis and cholecystostomy tube and Ryland drain insertion. Wound care, pain control, and DVT prophylaxis deferred to primary service. Continue ceftriaxone and metronidazole. failed cholecystectomy yesterday transfer to higher level of care per Surgery (2) Hypertension: Qualifiers: Hypertension type: unspecified Qualified Code(s): I10 - Essential (primary) hypertension Code(s): I10 - Essential (primary) hypertension Status: Chronic Assessment and Plan: Blood pressures were reviewed and they have been stable. Continue losartan 25 mg and monitor daily. (3) Benign prostatic hyperplasia: Code(s): N40.0 - Benign prostatic hyperplasia without lower urinary tract symptoms Status: Acute Assessment and Plan: Bladder scan p.r.n. Continue tamsulosin 0.4 mg daily. (4) Gastroesophageal reflux disease: Code(s): K21.9 - Gastro-esophageal reflux disease without esophagitis Status: Acute Assessment and Plan: No acute issues, continue PPI. (5) Depression with anxiety: Code(s): F41.8 - Other specified anxiety disorders Status: Acute Assessment and Plan: No acute issues, continue sertraline and bupropion. (6) Obstructive sleep apnea: Code(s): G47.33 - Obstructive sleep apnea (adult) (pediatric) Status: Acute Assessment and Plan: CPAP will be provided for the patient to use while hospitalized if in fact he uses it at home. Plan DVT prophylaxis on Sq Lovenox Subjective Date/time seen: 07/19/24 14:47 Interval history: Comfortable at bedside failed cholecystectomy yesterday Surgery considerinf transfer Review of Systems Review of Systems: 12 systems were reviewed and are negativ e except for as per HPI. Exam Narrative: General: Mildly ill-appearing male sitting in a chair at side of the bed. Weight: 156 kg. BMI: 40.8. HEENT: PERRL, EOMI. Sclera anicteric. Tacky mucous membranes. Neck: Supple. Respiratory: Lungs are clear to auscultation bilaterally. Cardiovascular: Regular rate and rhythm with S1-S2. Gastrointestinal: Abdomen is soft and slightly distended with hypoactive bowel sounds. Cholecystostomy tube draining a small amount of bloody appearing fluid. Skin: Warm and dry. Extremities: No cyanosis, clubbing, or significant edema. Radial and pedal pulses intact. Neurological: Alert. Cranial nerves 2-12 are grossly intact. No gross focal deficits to casual conversation. Psychiatric: Appropriate mood and affect. Objective Data Vital Signs Vital Signs: Vital Signs - 24 hr 07/18/24 20:00 07/18/24 21:04 07/19/24 06:00 Temperature 100.6 F H 99.7 F H Pulse Rate 103 H 103 H 96 Respiratory Rate 20 20 20 Blood Pressure 110/70 97/66 L Pulse Oximetry 95 95 93 Oxygen Delivery Room Air 07/19/24 10:40 07/19/24 10:54 07/19/24 12:00 Temperature 99.0 F 99.9 F H Pulse Rate 91 108 H Respiratory Rate 16 Blood Pressure 120/78 96/62 L Pulse Oximetry 93 92 Oxygen Delivery Room Air Room Air 07/19/24 12:50 Temperature 99.9 F H Pulse Rate 108 H Respiratory Rate 16 Blood Pressure 96/62 L Pulse Oximetry 92 Oxygen Delivery Intake/Output Intake/Output: Intake & Output 07/16/24 07/17/24 07/18/24 07/19/24 23:59 23:59 23:59 23:59 Intake Total 3450 5880 2150 Output Total -70 1810 810 Balance 3520 4070 1340 Meds/Results Medications: Active Medications Generic Name Dose Route Start Last Admin Trade Name Freq PRN Reason Stop Dose Admin Acetaminophen 500 mg 07/17/24 20:26 Acetaminophen 500 Mg Tablet PO Q6H PRN Pain Rated 1-3 Bisacodyl 10 mg 07/19/24 12:58 Bisacodyl 10 Mg Suppository RECTAL QAM PRN Constipation Bupropion HCl 150 mg 07/20/24 09:00 Bupropion Hcl Xl (24 Hr) 150 Mg Tabcr PO QAM JAVIER Docusate Sodium 100 mg 07/19/24 12:00 07/19/24 13:22 Docusate Sodium 100 Mg Capsule PO 100 mg Q12HR JAVIER Administration Enoxaparin Sodium 40 mg 07/18/24 09:00 07/19/24 09:53 Enoxaparin 40 Mg/0.4 Ml Syringe SUB-Q 40 mg DAILY JAVEIR Administration Ibuprofen 800 mg in 200 mls @ 400 mls/hr 07/17/24 20:26 Caldolor 800 Mg/200 Ml IVPB Q6H PRN Breakthrough Pain Rated 1-3 or NPO Metronidazole 500 mg in 100 mls @ 100 mls/hr 07/17/24 22:00 07/19/24 07:00 Flagyl 500 Mg/Iso Soln 100 Ml IVPB Infused Q8HR JAVIER Infusion Sodium Chloride 1,000 mls @ 150 mls/hr 07/18/24 09:45 07/19/24 14:34 Normal Saline Iv IV CONT 150 mls/hr .Q6H40M JAVIER Administration Piperacillin Sod/Tazobactam Sod 4.5 gm in 100 mls @ 200 mls/hr 07/19/24 18:00 Zosyn 4.5 Gm/Ns 100 Ml IVPB Q6HR JAVIER Losartan Potassium 25 mg 07/18/24 09:00 07/19/24 09:53 Losartan Potassium 25 Mg Tablet PO 25 mg DAILY JAVIRE Administration Morphine Sulfate 2 mg 07/17/24 20:26 Morphine Sulfate (*Crx) 2 Mg/Ml Inj IV PUSH Q2H PRN Breakthrough Pain Rated 4-6 or NPO Morphine Sulfate 4 mg 07/17/24 20:26 07/19/24 06:14 Morphine Sulfate (*Crx) 4 Mg/Ml Inj IV PUSH 4 mg Q2H PRN Administration Breakthrough Pain Rated 7-10 or NPO Naloxone HCl 0.1 mg 07/17/24 20:26 Naloxone Hcl 0.4 Mg/Ml Vial IV PUSH Q2M PRN Opiate Reversal Ondansetron HCl 4 mg 07/17/24 20:26 Ondansetron Inj 4 Mg/2 Ml Vial IV PUSH Q4H PRN Nausea And Vomiting Oxycodone/Acetaminophen 1 tablet 07/17/24 20:26 07/19/24 11:30 Oxycodone/Acetaminophen (*Crx) 5-325 Mg Tablet PO 1 tablet Q4H PRN Administration Pain Rated 4-6 Pantoprazole Sodium 40 mg 07/18/24 09:00 07/19/24 09:53 Pantoprazole 40 Mg Tablet PO 40 mg QAM JAVIER Administration Sertraline HCl 100 mg 07/18/24 09:00 07/19/24 09:53 Sertraline Hcl 50 Mg Tablet PO 100 mg DAILY JAVIER Administration Tamsulosin HCl 0.4 mg 07/17/24 21:25 07/18/24 21:14 Tamsulosin Hcl 0.4 Mg Capsule PO 0.4 mg HS JAVIER Administration Labs Labs: Laboratory Results - last 24 hr 07/19/24 07/19/24 06:08 12:02 WBC 17.0 H RBC 4.67 Hgb 13.6 L Hct 44.8 MCV 95.9 MCH 29.1 MCHC 30.4 L RDW 13.3 Plt Count 268 MPV 9.6 Sodium 129 L Potassium 4.6 Chloride 97 L Carbon Dioxide 22 Anion Gap 10 BUN 22 H Creatinine 1.43 H Estim Creat Clear Calc 79 Estimated GFR 50 L Glucose 97 Lactic Acid 3.1 H Calcium 8.5 Magnesium 2.2 Total Bilirubin 0.8 AST 24 ALT 15 Alkaline Phosphatase 68 Total Protein 6.0 L Albumin 3.1 L
[2024-07-19 15:18] LABS: Lactic Acid Reflex 2.6 mmol/L (0.7-2.0)
[2024-07-19] MEDS: SODIUM CHLORIDE 0.9% IV 500 ML IV CONT (19:42)
[2024-07-19] MEDS: TAMSULOSIN HCL 0.4 MG CAPSULE PO (20:10)
[2024-07-20] VITALS (7 sets, daily range): BP systolic 110–124; BP diastolic 70–83; PULSE 85–100; RESP 16–20; TEMP 36.4–37.2; O2SAT 91–95
[2024-07-20] MEDS: PIPERACILLIN/TAZ 4.5G/NS 100ML 4.5 GM/100 ML BAG IVPB ×5 (00:36→23:59)
[2024-07-20] MEDS: SODIUM CHLORIDE 0.9% IV 1,000 ML 150 ML IV CONT (04:19)
[2024-07-20] MEDS: oxyCODONE/ACETAMINOPHEN (*CRX) 5-325 MG TABLET 1 TABLET PO ×4 (04:19→21:47)
[2024-07-20] MEDS: metroNIDAZOLE 500 MG/ISO 100ML 500 MG/100 ML BAG 100 MG IVPB ×3 (06:03→21:49)
[2024-07-20] MEDS: BISACODYL 10 MG SUPPOSITORY RECTAL (06:12)
[2024-07-20 06:18] LABS: Basophils Absolute Auto 0.1 K/mm3 (0.0-0.1); Basophils Percent Auto 0.4 % (0.2-1.2); Eosinophils Absolute Auto 0.1 K/mm3 (0-0.3); Eosinophils Percent Auto 0.3 % (0-4.4); Hemoglobin 12.6 g/dL (14.0-18.0); Immature Granulocyte Absolute 0.08 K/mm3 (0.00-0.031); Immature Granulocyte Percent A 0.5 % (0-0.5); Lymphocytes Absolute Auto 0.75 K/mm3 (0.9-3.2); Lymphocytes Percent Auto 4.8 % (18.3-44.2); Mean Corpuscular HGB Conc 31.5 g/dl (32-36); Mean Corpuscular Hemoglobin 28.8 pg (26-34); Mean Corpuscular Volume 91.3 fl (80-100); Mean Platelet Volume 9.7 fl (7.4-10.4); Monocytes Absolute Auto 0.5 K/mm3 (0.1-0.6); Monocytes Percent Auto 3.4 % (2.6-8.5); Neutrophils Absolute Auto 14.2 K/mm3 (1.3-6.7); Neutrophils Percent Auto 90.6 % (45.5-73.1); Platelet Count Result 349 k/mm3 (150-375); Red Blood Count 4.38 M/mm3 (4.6-6.20); Red Cell Distribution Width 13.4 % (11.5-14.5); White Blood Count 15.7 K/mm3 (4.5-10.0)
[2024-07-20 06:26] LABS: Alanine Aminotransferase 13 U/L (6-50); Albumin Level 3.1 g/dL (3.5-5.1); Alkaline Phosphatase 74 U/L (38-126); Anion Gap 9 mmol/L (4-12); Aspartate Amino Transferase 18 U/L (17-59); Bilirubin,Total 0.6 mg/dL (0.2-1.3); Blood Urea Nitrogen 21 mg/dL (9-20); Calcium 8.4 mg/dL (8.4-10.2); Carbon Dioxide 24 mmol/L (22-30); Chloride 96 mmol/L (98-107); Estimated CRCL calculation 92 ml/min; Estimated Glomerular Filt Rate 60; Glucose 92 mg/dL (65-110); Sodium 129 mmol/L (137-145)
[2024-07-20] MEDS: PANTOPRAZOLE 40 MG TABLET PO (09:08)
[2024-07-20] MEDS: ENOXAPARIN 40 MG/0.4 ML SYRINGE SUB-Q (09:08)
[2024-07-20] MEDS: LOSARTAN POTASSIUM 25 MG TABLET PO (09:08)
[2024-07-20] MEDS: DOCUSATE SODIUM 100 MG CAPSULE PO ×2 (09:08→21:48)
[2024-07-20] MEDS: buPROPion HCL XL (24 HR) 150 MG TABCR PO (09:08)
[2024-07-20] MEDS: SERTRALINE HCL 50 MG TABLET 100 MG PO (09:08)
--- NOTE | 2024-07-20 09:55 | P.PNIM_ITS ---
Progress Note: A&P Assessment and Plan (1) Acute calculous cholecystitis: Code(s): K80.00 - Calculus of gallbladder with acute cholecystitis without obstruction Status: Acute Assessment and Plan: Postoperative day 1 status post adhesiolysis and cholecystostomy tube and Ryland drain insertion. Wound care, pain control, and DVT prophylaxis deferred to primary service. s/p ceftriaxone and metronidazole, now on ZOsyn failed cholecystectomy (2) Hypertension: Qualifiers: Hypertension type: unspecified Qualified Code(s): I10 - Essential (primary) hypertension Code(s): I10 - Essential (primary) hypertension Status: Chronic Assessment and Plan: Blood pressures were reviewed and they have been stable. Continue losartan 25 mg and monitor daily. (3) Benign prostatic hyperplasia: Code(s): N40.0 - Benign prostatic hyperplasia without lower urinary tract symptoms Status: Acute Assessment and Plan: Bladder scan p.r.n. Continue tamsulosin 0.4 mg daily. (4) Gastroesophageal reflux disease: Code(s): K21.9 - Gastro-esophageal reflux disease without esophagitis Status: Acute Assessment and Plan: No acute issues, continue PPI. (5) Depression with anxiety: Code(s): F41.8 - Other specified anxiety disorders Status: Acute Assessment and Plan: No acute issues, continue sertraline and bupropion. (6) Obstructive sleep apnea: Code(s): G47.33 - Obstructive sleep apnea (adult) (pediatric) Status: Acute Assessment and Plan: CPAP will be provided for the patient to use while hospitalized if in fact he uses it at home. Plan DVT prophylaxis on Sq Lovenox I appreciate the opportunity to participate in the care of this patient Subjective Date/time seen: 07/20/24 09:55 Interval history: Comfortable at bedside failed cholecystectomy yesterday Surgery considerinf transfer Review of Systems Review of Systems: 12 systems were reviewed and are negativ e except for as per HPI. Exam Narrative: General: Mildly ill-appearing male sitting in a chair at side of the bed. Weight: 156 kg. BMI: 40.8. HEENT: PERRL, EOMI. Sclera anicteric. Tacky mucous membranes. Neck: Supple. Respiratory: Lungs are clear to auscultation bilaterally. Cardiovascular: Regular rate and rhythm with S1-S2. Gastrointestinal: Abdomen is soft and slightly distended with hypoactive bowel sounds. Cholecystostomy tube draining a small amount of bloody appearing fluid. Skin: Warm and dry. Extremities: No cyanosis, clubbing, or significant edema. Radial and pedal pulses intact. Neurological: Alert. Cranial nerves 2-12 are grossly intact. No gross focal deficits to casual conversation. Psychiatric: Appropriate mood and affect. Objective Data Vital Signs Vital Signs: Vital Signs - 24 hr 07/19/24 10:40 07/19/24 10:54 07/19/24 12:00 Temperature 99.0 F 99.9 F H Pulse Rate 91 108 H Respiratory Rate 16 Blood Pressure 120/78 96/62 L Pulse Oximetry 93 92 Oxygen Delivery Room Air Room Air 07/19/24 12:50 07/19/24 16:00 07/19/24 16:00 Temperature 99.9 F H 99.0 F Pulse Rate 108 H 109 H 111 H Respiratory Rate 16 17 Blood Pressure 96/62 L 126/78 Pulse Oximetry 92 90 Oxygen Delivery 07/19/24 18:31 07/19/24 20:00 07/19/24 20:00 Temperature 96.4 F L Pulse Rate 104 H 104 H Respiratory Rate 18 18 Blood Pressure 108/68 126/68 Pulse Oximetry 91 91 Oxygen Delivery Room Air 07/19/24 20:00 07/19/24 21:48 07/20/24 00:00 Temperature Pulse Rate 94 92 Respiratory Rate Blood Pressure Pulse Oximetry 91 Oxygen Delivery Room Air 07/20/24 00:00 07/20/24 04:00 07/20/24 04:00 Temperature 98.6 F 98.6 F Pulse Rate 92 91 96 Respiratory Rate 18 18 Blood Pressure 124/77 111/72 Pulse Oximetry 91 93 Oxygen Delivery 07/20/24 08:00 Temperature 97.7 F Pulse Rate 85 Respiratory Rate 18 Blood Pressure 114/76 Pulse Oximetry 94 Oxygen Delivery Intake/Output Intake/Output: Intake & Output 07/17/24 07/18/24 07/19/24 07/20/24 23:59 23:59 23:59 23:59 Intake Total 3450 5880 3847.5 2680 Output Total -70 1810 873 485 Balance 3520 4070 2974.5 2195 Meds/Results Medications: Active Medications Generic Name Dose Route Start Last Admin Trade Name Freq PRN Reason Stop Dose Admin Acetaminophen 500 mg 07/17/24 20:26 Acetaminophen 500 Mg Tablet PO Q6H PRN Pain Rated 1-3 Bisacodyl 10 mg 07/19/24 12:58 07/20/24 06:12 Bisacodyl 10 Mg Suppository RECTAL 10 mg QAM PRN Administration Constipation Bupropion HCl 150 mg 07/20/24 09:00 07/20/24 09:08 Bupropion Hcl Xl (24 Hr) 150 Mg Tabcr PO 150 mg QAM JAVIER Administration Docusate Sodium 100 mg 07/19/24 12:00 07/20/24 09:08 Docusate Sodium 100 Mg Capsule PO 100 mg Q12HR JAVIER Administration Enoxaparin Sodium 40 mg 07/18/24 09:00 07/20/24 09:08 Enoxaparin 40 Mg/0.4 Ml Syringe SUB-Q 40 mg DAILY JAVIER Administration Ibuprofen 800 mg in 200 mls @ 400 mls/hr 07/17/24 20:26 Caldolor 800 Mg/200 Ml IVPB Q6H PRN Breakthrough Pain Rated 1-3 or NPO Metronidazole 500 mg in 100 mls @ 100 mls/hr 07/17/24 22:00 07/20/24 06:03 Flagyl 500 Mg/Iso Soln 100 Ml IVPB 100 mls/hr Q8HR JAVIER Administration Sodium Chloride 1,000 mls @ 150 mls/hr 07/18/24 09:45 07/20/24 04:19 Normal Saline Iv IV CONT 150 mls/hr .Q6H40M JAVIER Administration Piperacillin Sod/Tazobactam Sod 4.5 gm in 100 mls @ 200 mls/hr 07/19/24 18:00 07/20/24 06:02 Zosyn 4.5 Gm/Ns 100 Ml IVPB Infused Q6HR JAVIER Infusion Losartan Potassium 25 mg 07/18/24 09:00 07/20/24 09:08 Losartan Potassium 25 Mg Tablet PO 25 mg DAILY JAVIER Administration Morphine Sulfate 2 mg 07/17/24 20:26 Morphine Sulfate (*Crx) 2 Mg/Ml Inj IV PUSH Q2H PRN Breakthrough Pain Rated 4-6 or NPO Morphine Sulfate 4 mg 07/17/24 20:26 07/19/24 20:07 Morphine Sulfate (*Crx) 4 Mg/Ml Inj IV PUSH 4 mg Q2H PRN Administration Breakthrough Pain Rated 7-10 or NPO Naloxone HCl 0.1 mg 07/17/24 20:26 Naloxone Hcl 0.4 Mg/Ml Vial IV PUSH Q2M PRN Opiate Reversal Ondansetron HCl 4 mg 07/17/24 20:26 Ondansetron Inj 4 Mg/2 Ml Vial IV PUSH Q4H PRN Nausea And Vomiting Oxycodone/Acetaminophen 1 tablet 07/17/24 20:26 07/20/24 09:12 Oxycodone/Acetaminophen (*Crx) 5-325 Mg Tablet PO 1 tablet Q4H PRN Administration Pain Rated 4-6 Pantoprazole Sodium 40 mg 07/18/24 09:00 07/20/24 09:08 Pantoprazole 40 Mg Tablet PO 40 mg QAM JAVIER Administration Sertraline HCl 100 mg 07/18/24 09:00 07/20/24 09:08 Sertraline Hcl 50 Mg Tablet PO 100 mg DAILY JAVIER Administration Tamsulosin HCl 0.4 mg 07/17/24 21:25 07/19/24 20:10 Tamsulosin Hcl 0.4 Mg Capsule PO 0.4 mg HS JAVIER Administration Radiology Results: ITS Impressions Abdomen/Pelvis CT 07/19/24 15:24 IMPRESSION: 1. Large amount of free air in the abdomen with the catheter seen anteriorly not reaching to the gallbladder. Minimal free fluid around the liver. 2. Thickened wall of the gallbladder with cholelithiasis. Cholecystitis is not excluded. 3. No evidence of appendicitis, diverticulitis or intestinal obstruction. 4. Stone in the left upper ureter with left hydronephrotic changes. 5. Stone in the left kidney lower pole and tiny stone in the right kidney upper pole. 6. Thickened wall of the urinary bladder anteriorly. Further evaluation advised. Enlarged prostate. 7. Air in the subcutaneous tissues of the anterior abdominal wall. 8. Right pleural effusion with adjacent atelectasis Labs Labs: Laboratory Results - last 24 hr 07/19/24 07/19/24 07/20/24 12:02 15:03 05:29 WBC 15.7 H RBC 4.38 L Hgb 12.6 L Hct 40.0 L MCV 91.3 MCH 28.8 MCHC 31.5 L RDW 13.4 Plt Count 349 MPV 9.7 Immature Gran % (Auto) 0.5 Neut % (Auto) 90.6 H Lymph % (Auto) 4.8 L Hardin % (Auto) 3.4 Eos % (Auto) 0.3 Baso % (Auto) 0.4 Lymph # (Auto) 0.75 L Hardin # (Auto) 0.5 Eos # (Auto) 0.1 Baso # (Auto) 0.1 Abs Immat Gran (auto) 0.08 H Absolute Neuts (auto) 14.2 H Absolute Nucleated RBC 0.000 Nucleated RBC % 0.0 Sodium 129 L Potassium 4.0 Chloride 96 L Carbon Dioxide 24 Anion Gap 9 BUN 21 H Creatinine 1.22 Estim Creat Clear Calc 92 Estimated GFR 60 Glucose 92 Lactic Acid 3.1 H 2.6 H Calcium 8.4 Magnesium 2.0 Total Bilirubin 0.6 AST 18 ALT 13 Alkaline Phosphatase 74 Total Protein 6.0 L Albumin 3.1 L
--- NOTE | 2024-07-20 11:59 | P.PN_ITS ---
Progress Note: A&P Assessment and Plan (1) Calculus of gallbladder with acute and chronic cholecystitis with obstruction: Code(s): K80.13 - Calculus of gallbladder with acute and chronic cholecystitis with obstruction Status: Acute Assessment and Plan: Patient is doing better today. Less abdominal pain. Still likely has postoperative ileus as he has not had any flatus or bowel movement yet and his abdomen is still moderately distended. He seems to be better resuscitated today. He received 1.5L of IV fluid boluses yesterday and his pulse rate is normal now and his systolic blood pressure is consistently above 110. Creatinine has decreased from 1.4 to 1.2. Will drop his IV fluid rate down to 120 cc per hour. Continue with the Zosyn for IV antibiotics. We will go ahead advanced into low-fat diet for now. I did discuss with him and his family at the bedside that Dr. Hernandez did contact the hepatobiliary surgeons at [facility] and their recommendations are an outpatient follow-up in about 6 weeks with them to plan definitive cholecystectomy rather than transfer now. I briefly tried to explain why waiting 6 weeks would be important in terms of allowing some of the postoperative changes and inflammation from the acute cholecystitis to improve before trying another potentially difficult surgery. At this time the patient and his family seemed to be very frustrated with having to wait for 6 weeks for definitive management as gallbladder. I told the Dr. Hernandez will be in to see them tomorrow and since he was the 1 who had the conversation with the hepatobiliary surgeons at the tertiary care center and he would be a better person to further explain the conversation he had with the hepatobiliary surgeons at [facility]. Continue supportive management. Subjective Date/time seen: 07/20/24 11:59 Interval history: Patient is sitting up in a chair. He states he was able to tolerate his full liquid breakfast without any difficulty. He feels better today than yesterday in terms of abdominal pain. Not passing flatus or bowel movement yet. CT scan abdomen pelvis without contrast yesterday showed expected free air in the abdomen from his previous surgery 3 days ago. Drains and cholecystostomy tube appeared to be in good position. No abscess was seen. A left ureteral stone measuring 8mm was noted with some mild hydronephrosis. The patient is complaining of having some lower back pain which may be related to the ureteral stone or could just be positioning lying in bed. Systolic Blood pressure is consistently above 110 now. He is no longer tachycardic. He received 1.5L of IV fluid boluses yesterday as it was felt that he was under resuscitated after surgery. IV fluids were increased [id number] an hour. Creatinine which was 1.4 yesterday has now decreased and 1.2. White blood cell count which was 17,000 yesterday is now down the 15,700 after his IV antibiotics was changed to Zosyn from Rocephin. Exam GI: Other: Abdomen is soft but moderately distended. A little less distended than yesterday. Incisions are all healing appropriately. Drain sites are dry. The drains have some expected serosanguineous output but no bile leak noted in the drains. Cholecystostomy tube has typical appearing nonpurulent bile noted. Objective Data Vital Signs Vital Signs: Vital Signs - 24 hr 07/19/24 12:00 07/19/24 12:50 07/19/24 16:00 Temperature 37.7 C H 37.7 C H 37.2 C Pulse Rate 108 H 108 H 109 H Respiratory Rate 16 16 17 Blood Pressure 96/62 L 96/62 L 126/78 Pulse Oximetry 92 92 90 Oxygen Delivery 07/19/24 16:00 07/19/24 18:31 07/19/24 20:00 Temperature 35.8 C L Pulse Rate 111 H 104 H Respiratory Rate 18 Blood Pressure 108/68 126/68 Pulse Oximetry 91 Oxygen Delivery 07/19/24 20:00 07/19/24 20:00 07/19/24 21:48 Temperature Pulse Rate 104 H 94 Respiratory Rate 18 Blood Pressure Pulse Oximetry 91 91 Oxygen Delivery Room Air Room Air 07/20/24 00:00 07/20/24 00:00 07/20/24 04:00 Temperature 37.0 C Pulse Rate 92 92 91 Respiratory Rate 18 Blood Pressure 124/77 Pulse Oximetry 91 Oxygen Delivery 07/20/24 04:00 07/20/24 08:00 07/20/24 09:20 Temperature 37.0 C 36.5 C Pulse Rate 96 85 Respiratory Rate 18 18 Blood Pressure 111/72 114/76 Pulse Oximetry 93 94 Oxygen Delivery Room Air Intake/Output Intake/Output: Intake & Output 07/17/24 07/18/24 07/19/24 07/20/24 23:59 23:59 23:59 23:59 Intake Total 3450 5880 3847.5 2780 Output Total -70 1810 873 485 Balance 3520 4070 2974.5 2295 Meds/Results Medications: Active Medications Generic Name Dose Route Start Last Admin Trade Name Freq PRN Reason Stop Dose Admin Acetaminophen 500 mg 07/17/24 20:26 Acetaminophen 500 Mg Tablet PO Q6H PRN Pain Rated 1-3 Bisacodyl 10 mg 07/19/24 12:58 07/20/24 06:12 Bisacodyl 10 Mg Suppository RECTAL 10 mg QAM PRN Administration Constipation Bupropion HCl 150 mg 07/20/24 09:00 07/20/24 09:08 Bupropion Hcl Xl (24 Hr) 150 Mg Tabcr PO 150 mg QAM JAVIER Administration Docusate Sodium 100 mg 07/19/24 12:00 07/20/24 09:08 Docusate Sodium 100 Mg Capsule PO 100 mg Q12HR JAVIER Administration Enoxaparin Sodium 40 mg 07/18/24 09:00 07/20/24 09:08 Enoxaparin 40 Mg/0.4 Ml Syringe SUB-Q 40 mg DAILY JAVIER Administration Ibuprofen 800 mg in 200 mls @ 400 mls/hr 07/17/24 20:26 Caldolor 800 Mg/200 Ml IVPB Q6H PRN Breakthrough Pain Rated 1-3 or NPO Metronidazole 500 mg in 100 mls @ 100 mls/hr 07/17/24 22:00 07/20/24 07:03 Flagyl 500 Mg/Iso Soln 100 Ml IVPB Infused Q8HR JAVIER Infusion Sodium Chloride 1,000 mls @ 150 mls/hr 07/18/24 09:45 07/20/24 04:19 Normal Saline Iv IV CONT 150 mls/hr .Q6H40M JAVIER Administration Piperacillin Sod/Tazobactam Sod 4.5 gm in 100 mls @ 200 mls/hr 07/19/24 18:00 07/20/24 06:02 Zosyn 4.5 Gm/Ns 100 Ml IVPB Infused Q6HR JAVIER Infusion Losartan Potassium 25 mg 07/18/24 09:00 07/20/24 09:08 Losartan Potassium 25 Mg Tablet PO 25 mg DAILY JAVIER Administration Morphine Sulfate 2 mg 07/17/24 20:26 Morphine Sulfate (*Crx) 2 Mg/Ml Inj IV PUSH Q2H PRN Breakthrough Pain Rated 4-6 or NPO Morphine Sulfate 4 mg 07/17/24 20:26 07/19/24 20:07 Morphine Sulfate (*Crx) 4 Mg/Ml Inj IV PUSH 4 mg Q2H PRN Administration Breakthrough Pain Rated 7-10 or NPO Naloxone HCl 0.1 mg 07/17/24 20:26 Naloxone Hcl 0.4 Mg/Ml Vial IV PUSH Q2M PRN Opiate Reversal Ondansetron HCl 4 mg 07/17/24 20:26 Ondansetron Inj 4 Mg/2 Ml Vial IV PUSH Q4H PRN Nausea And Vomiting Oxycodone/Acetaminophen 1 tablet 07/17/24 20:26 07/20/24 09:12 Oxycodone/Acetaminophen (*Crx) 5-325 Mg Tablet PO 1 tablet Q4H PRN Administration Pain Rated 4-6 Pantoprazole Sodium 40 mg 07/18/24 09:00 07/20/24 09:08 Pantoprazole 40 Mg Tablet PO 40 mg QAM JAVIER Administration Sertraline HCl 100 mg 07/18/24 09:00 07/20/24 09:08 Sertraline Hcl 50 Mg Tablet PO 100 mg DAILY JAVIER Administration Tamsulosin HCl 0.4 mg 07/17/24 21:25 07/19/24 20:10 Tamsulosin Hcl 0.4 Mg Capsule PO 0.4 mg HS JAVIER Administration Radiology Results: ITS Impressions Abdomen/Pelvis CT 07/19/24 15:24 IMPRESSION: 1. Large amount of free air in the abdomen with the catheter seen anteriorly not reaching to the gallbladder. Minimal free fluid around the liver. 2. Thickened wall of the gallbladder with cholelithiasis. Cholecystitis is not excluded. 3. No evidence of appendicitis, diverticulitis or intestinal obstruction. 4. Stone in the left upper ureter with left hydronephrotic changes. 5. Stone in the left kidney lower pole and tiny stone in the right kidney upper pole. 6. Thickened wall of the urinary bladder anteriorly. Further evaluation advised. Enlarged prostate. 7. Air in the subcutaneous tissues of the anterior abdominal wall. 8. Right pleural effusion with adjacent atelectasis Labs Labs: Laboratory Results - last 24 hr 07/19/24 07/19/24 07/20/24 12:02 15:03 05: WBC 15.7 H RBC 4.38 L Hgb 12.6 L Hct 40.0 L MCV 91.3 MCH 28.8 MCHC 31.5 L RDW 13.4 Plt Count 349 MPV 9.7 Immature Gran % (Auto) 0.5 Neut % (Auto) 90.6 H Lymph % (Auto) 4.8 L Dewitt % (Auto) 3.4 Eos % (Auto) 0.3 Baso % (Auto) 0.4 Lymph # (Auto) 0.75 L Dewitt # (Auto) 0.5 Eos # (Auto) 0.1 Baso # (Auto) 0.1 Abs Immat Gran (auto) 0.08 H Absolute Neuts (auto) 14.2 H Absolute Nucleated RBC 0.000 Nucleated RBC % 0.0 Sodium 129 L Potassium 4.0 Chloride 96 L Carbon Dioxide 24 Anion Gap 9 BUN 21 H Creatinine 1.22 Estim Creat Clear Calc 92 Estimated GFR 60 Glucose 92 Lactic Acid 3.1 H 2.6 H Calcium 8.4 Magnesium 2.0 Total Bilirubin 0.6 AST 18 ALT 13 Alkaline Phosphatase 74 Total Protein 6.0 L Albumin 3.1 L
[2024-07-20] MEDS: SODIUM CHLORIDE 0.9% IV 1,000 ML 120 ML IV CONT ×2 (12:33→23:56)
--- NOTE | 2024-07-20 21:13 | WPDURCON ---
Assessment and Plan Assessment and plan (1) Morbid obesity with BMI of 40.0-44.9, adult: Code(s): E66.01 - Morbid (severe) obesity due to excess calories; Z68.41 - Body mass index [BMI] 40.0-44.9, adult Status: Chronic (2) Ureteral stone: Code(s): N20.1 - Calculus of ureter Status: Acute Assessment and Plan: This is a 64-year-old gentleman on active surveillance with cholecystitis and PERC Choelcystotomy tube, now with left flank pain with a left proximal 8 mm ureter stone. We will send his urine for analysis we will send his urine for culture. N.p.o. at midnight if his pain becomes uncontrolled he will need a stent placed tomorrow. Reviewed the risk, benefits, nature procedure and potential complications he voiced understanding all questions answered. Patient was seen and examined at 1 PM, note put in later as the EMR was not working. Urology Consult Note HPI Date Seen: 07/20/24 Requesting Physician: Trevor Hernandez MD Primary Care Provider: Junior Lema, Consult Narrative Narrative: Donnie Cates Jr. is a 64 year old male with multiple medical problems underwent attempted cholecystectomy underwent a PERC cholecystostomy tube had initial CT with bilateral nonobstructing stones was starting to have left-sided flank pain and was found to have a proximal left 8 mm stone. He is currently eating lunch. His pain is moderately controlled. Denies any gross hematuria or dysuria no fevers or chills. No nausea or vomiting. He is on active surveillance for prostate cancer from his primary urologist Dr. Fernandez. He will be n.p.o. at midnight Review of Systems Review of Systems: All systems reviewed & are unremarkable except as noted in HPI and below Constitutional: Constitutional: Reports as per HPI, Reports no additional constitutional complaints and Denies chills Eyes: Eyes: Reports as per HPI and Reports no additional eye complaints ENT: Reports system reviewed and no additional complaints, except as documented, Reports as per HPI and Reports Normal hearing present Cardiovascular: Cardiovascular: Reports as per HPI and Denies chest pain Respiratory: Respiratory: Reports as per HPI and Denies dyspnea Gastrointestinal: Gastrointestinal: Reports as per HPI Genitourinary: Genitourinary: Reports no additional male genitourinary complaints, Reports as per HPI, Denies hematuria, Denies dysuria and Reports flank pain Musculoskeletal: Musculoskeletal: Reports no additional musculoskeletal complaints Integumentary/Breasts: Skin/Breast: Reports system reviewed and no additional complaints, except as docu Psychiatric: Psychiatric: Reports no additional psychiatric complaints [facility] Past Medical History Medical History (Updated 07/20/24 @ 21:18 by Jong Rodriguez MD) Obstructive sleep apnea Gastroesophageal reflux disease Depression with anxiety Benign prostatic hyperplasia Hypertension Anxiety Surgical History Surgical History (Updated 07/18/24 @ 14:49 by America Butts PA-C) History of arthroscopy of right knee (2009) History of bilateral mastectomy (12/2019) for gynecomastia History of abdominoplasty (12/2019) Status post brachioplasty (12/2019) History of lysis of adhesions (07/17/24) History of insertion of cholecystostomy tube (07/17/24) History of gastric bypass (11/2018) Family History Family History Mother Lung cancer Father Social History Social History (Updated 07/18/24 @ 14:50 by America Butts PA-C) Social History: Surrogate medical decision maker: Randi Mazariegosr, sibling. Code status: Full code. Smoking status: Never smoker Alcohol intake: current Drinks per week: 1 Substance use: never Substance use type: does not use Do You Feel Safe in your Home?: Yes Lack of Transportation: No Lack of Food: Never True Current Housing: I Have Housing Concerned About Future Housing: Decline to Answer Difficulty Paying Gas/Electric Bills: No Difficulty Paying for Meds: No Currently Unemployed: No Education: Bachelor's Degree Difficulty w/ Childcare or Family Care: No Living arrangements: with family Spiritual care concerns: No Meds Home Medications and Allergies Home Medications ?Medication ?Instructions ?Recorded ?Confirmed ?Type sertraline 100 mg tablet 100 mg PO DAILY 11/05/19 07/17/24 History tamsulosin 0.4 mg capsule 0.4 mg PO DAILY 04/12/20 07/17/24 History ferrous sulfate 27 mg iron tablet 27 mg PO DAILY 10/27/20 07/17/24 History omeprazole 40 mg capsule,delayed 40 mg PO DAILY 10/27/20 07/17/24 History release ondansetron 4 mg disintegrating 4 mg PO Q8H PRN nausea and 07/04/24 07/17/24 Rx tablet vomiting #14 tabs losartan 25 mg tablet 25 mg PO DAILY 07/17/24 07/17/24 History bupropion HCl 150 mg 24 hr tablet, 150 mg PO DAILY 07/18/24 07/18/24 History extended release Allergies Allergy/AdvReac Type Severity Reaction Status Date / Time No Known Allergies Allergy Verified 07/17/24 13:52 Vital Signs Vital Signs - 24 hr 07/19/24 21:48 07/20/24 00:00 07/20/24 00:00 Temperature 37.0 C Pulse Rate 92 92 Respiratory Rate 18 Blood Pressure 124/77 Pulse Oximetry 91 91 Oxygen Delivery Room Air 07/20/24 04:00 07/20/24 04:00 07/20/24 08:00 Temperature 37.0 C 36.5 C Pulse Rate 91 96 85 Respiratory Rate 18 18 Blood Pressure 111/72 114/76 Pulse Oximetry 93 94 Oxygen Delivery 07/20/24 08:00 07/20/24 09:20 07/20/24 12:00 Temperature 36.4 C Pulse Rate 87 89 Respiratory Rate 20 Blood Pressure 110/70 Pulse Oximetry 94 Oxygen Delivery Room Air 07/20/24 12:00 07/20/24 16:00 07/20/24 16:00 Temperature 36.6 C Pulse Rate 100 88 95 Respiratory Rate 20 Blood Pressure 115/74 Pulse Oximetry 95 Oxygen Delivery 07/20/24 20:00 07/20/24 21:03 Temperature 37.2 C Pulse Rate 89 Respiratory Rate 16 Blood Pressure 117/83 Pulse Oximetry 93 94 Oxygen Delivery Room Air Exam Const: General: comfortable and no acute distress HENMT: Mouth: Yes moist mucous membranes abnormal Eyes: EOM: EOMs intact bilaterally Neck: Neck: supple Resp: Effort & Inspection: normal respiratory effort Auscultation: no wheezes Cardio: Rate: regular rate GI: GI Palp: Yes Soft to palpation and No Tenderness to palpation present (GI) (perc jeff tube in place) : Other: no CVA TTP Skin: General skin exam: normal color and no rashes or lesions noted Psych: Speech and movement: Normal speech and movement present Results Labs 07/20/24 05:29 06/01/25 05:29 Labs: Short CBC 07/20/24 Range/Units 05:29 WBC 15.7 H (4.5-10.0) K/mm3 Hgb 12.6 L (14.0-18.0) g/dL Hct 40.0 L (42.0-52.0) % Plt Count 349 (150-375) k/mm3 BMP 07/20/24 05:29 Sodium 129 L Potassium 4.0 Chloride 96 L Carbon Dioxide 24 BUN 21 H Creatinine 1.22 Glucose 92 Calcium 8.4 Liver Function 07/20/24 Range/Units 05:29 Total Bilirubin 0.6 (0.2-1.3) mg/dL AST 18 (17-59) U/L ALT 13 (6-50) U/L Alkaline Phosphatase 74 (38-126) U/L Albumin 3.1 L (3.5-5.1) g/dL Imaging Attestation: I personally reviewed and interpreted this imaging study as follows: My impression: [id number] proximal ureter stone
[2024-07-20] MEDS: TAMSULOSIN HCL 0.4 MG CAPSULE PO (21:48)
[2024-07-21] VITALS (7 sets, daily range): BP systolic 106–130; BP diastolic 71–85; PULSE 78–104; RESP 17–28; TEMP 36.4–37.1; O2SAT 92–97
[2024-07-21 01:22] LABS: Add Urine Microscopic? YES; Appearance Urine Clear (Clear); Bacteria Urine None Seen /hpf; Bilirubin Urine 1+ (Negative); Blood Urine Negative (Negative); Color Urine Dark Yellow (Yellow); Glucose Urine UA Negative (Negative); Ketones Urine Trace mg/dL (Negative); Leukocyte Esterase Ur 1+ LEU/UL (Negative); Need Manual Microscopic Reviewed; Nitrate Urine Negative (Negative); Protein Urine 2+ mg/dL (Negative); Specific Grav Ur 1.035 (1.001-1.035); Squamous Epithelial Cell Urine Few /hpf (Few); pH Urine 5.5 (5.0-9.0)
[2024-07-21] MEDS: PIPERACILLIN/TAZ 4.5G/NS 100ML 4.5 GM/100 ML BAG IVPB (05:34)
[2024-07-21] MEDS: metroNIDAZOLE 500 MG/ISO 100ML 500 MG/100 ML BAG 100 MG IVPB ×3 (06:09→21:10)
[2024-07-21 06:51] LABS: Basophils Absolute Auto 0.1 K/mm3 (0.0-0.1); Basophils Percent Auto 0.5 % (0.2-1.2); Eosinophils Absolute Auto 0.4 K/mm3 (0-0.3); Eosinophils Percent Auto 2.1 % (0-4.4); Hematocrit 35.9 % (42.0-52.0); Hemoglobin 11.3 g/dL (14.0-18.0); Immature Granulocyte Absolute 0.17 K/mm3 (0.00-0.031); Lymphocytes Absolute Auto 0.85 K/mm3 (0.9-3.2); Lymphocytes Percent Auto 4.9 % (18.3-44.2); Mean Corpuscular HGB Conc 31.5 g/dl (32-36); Mean Corpuscular Hemoglobin 28.8 pg (26-34); Mean Corpuscular Volume 91.6 fl (80-100); Mean Platelet Volume 9.7 fl (7.4-10.4); Monocytes Absolute Auto 0.8 K/mm3 (0.1-0.6); Monocytes Percent Auto 4.8 % (2.6-8.5); Neutrophils Absolute Auto 15.1 K/mm3 (1.3-6.7); Neutrophils Percent Auto 86.7 % (45.5-73.1); Platelet Count Result 327 k/mm3 (150-375); Red Blood Count 3.92 M/mm3 (4.6-6.20); Red Cell Distribution Width 13.6 % (11.5-14.5); White Blood Count 17.4 K/mm3 (4.5-10.0)
[2024-07-21 06:57] LABS: Alanine Aminotransferase 14 U/L (6-50); Albumin Level 2.8 g/dL (3.5-5.1); Alkaline Phosphatase 91 U/L (38-126); Anion Gap 8 mmol/L (4-12); Aspartate Amino Transferase 21 U/L (17-59); Bilirubin,Total 0.6 mg/dL (0.2-1.3); Blood Urea Nitrogen 19 mg/dL (9-20); Calcium 8.2 mg/dL (8.4-10.2); Carbon Dioxide 22 mmol/L (22-30); Chloride 100 mmol/L (98-107); Estimated CRCL calculation 113 ml/min; Estimated Glomerular Filt Rate > 60; Glucose 92 mg/dL (65-110); Lactic Acid Reflex 0.8 mmol/L (0.7-2.0); Magnesium 2.1 mg/dL (1.6-2.3); Potassium 3.8 mmol/L (3.4-5.0); Sodium 130 mmol/L (137-145)
--- NOTE | 2024-07-21 07:46 | PM.PNGS ---
Progress Note: A&P Assessment and Plan (1) Ureteral stone: Code(s): N20.1 - Calculus of ureter Status: Acute Assessment and Plan: CT scan from 2 days ago shows 8 mm calcified stone in the upper 3rd of the left ureter with hydronephrosis. Urology has been consult it and I believe they plan to go ahead with either stent placement or laser treatment and stent placement today. (2) Calculus of gallbladder with acute and chronic cholecystitis with obstruction: Code(s): K80.13 - Calculus of gallbladder with acute and chronic cholecystitis with obstruction Status: Acute Assessment and Plan: Postop day 4. No longer having right upper quadrant pain, tolerating low-fat diet. (3) H/O insertion of cholecystostomy tube: Code(s): Z98.890 - Other specified postprocedural states Status: Acute Assessment and Plan: Will review the CT scan with in-house radiologist later today. Pretty sure the Herman balloon is in the gallbladder by my review of the CT scan. Will get cholecystostomy tube injection of contrast imaging prior to discharge. (4) S/P laparoscopy with lysis of adhesions: Code(s): Z98.890 - Other specified postprocedural states Status: Acute Assessment and Plan: Patient and surgery for 5 hours with laparoscopic lysis adhesion being performed for for those 5 hours due to severity of cholecystitis and probable length of time it has been going on. (5) History of gastric bypass: Onset Date: 11/2018 Code(s): Z98.84 - Bariatric surgery status Status: Chronic Assessment and Plan: Two thousand nineteen (6) Morbid obesity with BMI of 40.0-44.9, adult: Code(s): E66.01 - Morbid (severe) obesity due to excess calories; Z68.41 - Body mass index [BMI] 40.0-44.9, adult Status: Chronic (7) Obstructive sleep apnea: Code(s): G47.33 - Obstructive sleep apnea (adult) (pediatric) Status: Chronic Subjective Subjective Date/Time Seen: 07/21/24 07:46 Post Op day: 4 Patient reports: still having pain (Left-sided back pain, minimal abdominal pain), tolerating a regular diet, voiding w/o difficulty, no bowel movement and afebrile Interval history: Patient sitting up in a chair. Had some questions regarding why he has to wait 6 weeks to have surgery for gallbladder removal. Dr. Wilhelm arrived at the end of my visit and plans to proceed with surgery due to patient's obstructing left ureteral stone. Exam Const: General: cooperative, comfortable, alert, awake and obese Orientation/consciousness: patient oriented x3 and No confusion GI: Inspection: incision (Dry and healing, serous fluid from each TEETEE drain), obesity and other (Greenish brown fluid from cholecystostomy tube) GI Palp: Yes Soft to palpation, Yes Tenderness to palpation present (GI), No Guarding due to palpation present (GI), No Hernia present and No Palpable mass present Objective Data Vital Signs Vital Signs: Vital Signs - 24 hr 07/20/24 08:00 07/20/24 08:00 07/20/24 09:20 Temperature 36.5 C Pulse Rate 85 87 Respiratory Rate 18 Blood Pressure 114/76 Pulse Oximetry 94 Oxygen Delivery Room Air 07/20/24 12:00 07/20/24 12:00 07/20/24 16:00 Temperature 36.4 C 36.6 C Pulse Rate 89 100 88 Respiratory Rate 20 20 Blood Pressure 110/70 115/74 Pulse Oximetry 94 95 Oxygen Delivery 07/20/24 16:00 07/20/24 20:00 07/20/24 20:00 Temperature 37.2 C Pulse Rate 95 89 Respiratory Rate 16 Blood Pressure 117/83 Pulse Oximetry 93 Oxygen Delivery Room Air 07/20/24 20:00 07/20/24 21:03 07/21/24 00:00 Temperature 37.1 C Pulse Rate 92 78 Respiratory Rate 17 Blood Pressure 106/74 Pulse Oximetry 94 95 Oxygen Delivery Room Air 07/21/24 00:00 07/21/24 04:00 Temperature 37.1 C Pulse Rate 86 80 Respiratory Rate 17 Blood Pressure 111/71 Pulse Oximetry 92 Oxygen Delivery Intake/Output Intake/Output: Intake & Output 07/18/24 07/19/24 07/20/24 07/21/24 23:59 23:59 23:59 23:59 Intake Total 5880 3847.5 6280 100 Output Total 3520 009 7284 12 Balance 4070 2974.5 4580 88 Meds/Results Medications: Active Medications Generic Name Dose Route Start Last Admin Trade Name Freq PRN Reason Stop Dose Admin Acetaminophen 500 mg 07/17/24 20:26 Acetaminophen 500 Mg Tablet PO Q6H PRN Pain Rated 1-3 Bisacodyl 10 mg 07/19/24 12:58 07/20/24 06:12 Bisacodyl 10 Mg Suppository RECTAL 10 mg QAM PRN Administration Constipation Bupropion HCl 150 mg 07/20/24 09:00 07/20/24 09:08 Bupropion Hcl Xl (24 Hr) 150 Mg Tabcr PO 150 mg QAM JAVIER Administration Docusate Sodium 100 mg 07/19/24 12:00 07/20/24 21:48 Docusate Sodium 100 Mg Capsule PO 100 mg Q12HR JAVIER Administration Enoxaparin Sodium 40 mg 07/18/24 09:00 07/20/24 09:08 Enoxaparin 40 Mg/0.4 Ml Syringe SUB-Q 40 mg DAILY JAVIER Administration Ibuprofen 800 mg in 200 mls @ 400 mls/hr 07/17/24 20:26 Caldolor 800 Mg/200 Ml IVPB Q6H PRN Breakthrough Pain Rated 1-3 or NPO Metronidazole 500 mg in 100 mls @ 100 mls/hr 07/17/24 22:00 07/21/24 06:09 Flagyl 500 Mg/Iso Soln 100 Ml IVPB 100 mls/hr Q8HR JAVIER Administration Sodium Chloride 1,000 mls @ 120 mls/hr 07/18/24 09:45 07/20/24 23:56 Normal Saline Iv IV CONT 120 mls/hr .Q8H20M JAVIER Administration Piperacillin Sod/Tazobactam Sod 4.5 gm in 100 mls @ 200 mls/hr 07/19/24 18:00 07/21/24 05:34 Zosyn 4.5 Gm/Ns 100 Ml IVPB 200 mls/hr Q6HR JAVIER Administration Losartan Potassium 25 mg 07/18/24 09:00 07/20/24 09:08 Losartan Potassium 25 Mg Tablet PO 25 mg DAILY JAVIER Administration Morphine Sulfate 2 mg 07/17/24 20:26 Morphine Sulfate (*Crx) 2 Mg/Ml Inj IV PUSH Q2H PRN Breakthrough Pain Rated 4-6 or NPO Morphine Sulfate 4 mg 07/17/24 20:26 07/19/24 20:07 Morphine Sulfate (*Crx) 4 Mg/Ml Inj IV PUSH 4 mg Q2H PRN Administration Breakthrough Pain Rated 7-10 or NPO Naloxone HCl 0.1 mg 07/17/24 20:26 Naloxone Hcl 0.4 Mg/Ml Vial IV PUSH Q2M PRN Opiate Reversal Ondansetron HCl 4 mg 07/17/24 20:26 Ondansetron Inj 4 Mg/2 Ml Vial IV PUSH Q4H PRN Nausea And Vomiting Oxycodone/Acetaminophen 1 tablet 07/17/24 20:26 07/20/24 21:47 Oxycodone/Acetaminophen (*Crx) 5-325 Mg Tablet PO 1 tablet Q4H PRN Administration Pain Rated 4-6 Pantoprazole Sodium 40 mg 07/18/24 09:00 07/20/24 09:08 Pantoprazole 40 Mg Tablet PO 40 mg QAM JAVIER Administration Sertraline HCl 100 mg 07/18/24 09:00 07/20/24 09:08 Sertraline Hcl 50 Mg Tablet PO 100 mg DAILY JAVIER Administration Tamsulosin HCl 0.4 mg 07/17/24 21:25 07/20/24 21:48 Tamsulosin Hcl 0.4 Mg Capsule PO 0.4 mg HS JAVIER Administration Radiology Results: ITS Impressions Abdomen/Pelvis CT 07/19/24 15:24 IMPRESSION: 1. Large amount of free air in the abdomen with the catheter seen anteriorly not reaching to the gallbladder. Minimal free fluid around the liver. 2. Thickened wall of the gallbladder with cholelithiasis. Cholecystitis is not excluded. 3. No evidence of appendicitis, diverticulitis or intestinal obstruction. 4. Stone in the left upper ureter with left hydronephrotic changes. 5. Stone in the left kidney lower pole and tiny stone in the right kidney upper pole. 6. Thickened wall of the urinary bladder anteriorly. Further evaluation advised. Enlarged prostate. 7. Air in the subcutaneous tissues of the anterior abdominal wall. 8. Right pleural effusion with adjacent atelectasis Labs Labs: Laboratory Results - last 24 hr 07/21/24 07/21/24 00:24 06:33 Sodium 130 L Potassium 3.8 Chloride 100 Carbon Dioxide 22 Anion Gap 8 BUN 19 Creatinine 0.98 Estim Creat Clear Calc 113 Estimated GFR > 60 Glucose 92 Lactic Acid 0.8 Calcium 8.2 L Magnesium 2.1 Total Bilirubin 0.6 AST 21 ALT 14 Alkaline Phosphatase 91 Total Protein 6.0 L Albumin 2.8 L Urine Color Dark yellow Urine Appearance Clear Urine pH 5.5 Ur Specific [place] 1.035 Urine Protein 2+ H Urine Glucose (UA) Negative Urine Ketones Trace H Ur Blood (Man) Negative Urine Nitrate Negative Urine Bilirubin 1+ H Urine Urobilinogen 1.0 Ur Leukocyte Esterase 1+ H Add Ur Microanalysis Reviewed Urine RBC 3-5 H Urine WBC 6-10 H Ur Squamous Epith Cells Few Urine Bacteria None seen Urine Casts 6-10 Imaging Attestation: I personally reviewed and interpreted this imaging study as follows: (CT scan abdomen and pelvis 07/19/2024) My impression: Large calcified stone in proximal left ureter causing hydroureter, cholecystostomy tube is 16 [place] Herman catheter, seems to be a lucency from the balloon in the gallbladder itself. No fluid collections suspicious of abscess. Radiologist's impression: Abdomen/Pelvis CT 07/19/24 15:24
--- NOTE | 2024-07-21 08:17 | P.CONUR_ITS ---
Assessment and Plan Assessment and plan (1) Ureteral stone: Code(s): N20.1 - Calculus of ureter Status: Acute (2) Right renal stone: Code(s): N20.0 - Calculus of kidney Status: Acute (3) Hydronephrosis: Code(s): N13.30 - Unspecified hydronephrosis Status: Acute Plan He has a left ureteral stone. He is tolerating it well. He will need intervention on the stone due to its size. Timing of intervention is complicated by his concomitant other surgical issues. There was no availability in the operating room today for left ureteral stent placement. This can safely be deferred to tomorrow as he does not have significant pain or signs of infection. Please make NPO after midnight. Will plan on cystoscopy and left ureteral stent tomorrow. He understands risks of bleeding, infection, damage to the urinary tract, inability to place a stent. He understands we will not be dealing with the stone at this time. Stent will temporize things so the stone could be dealt with on an elective basis with either lithotripsy or ureteroscopy. Will obtain KUB to see if stone is visible Urology Consult Note HPI Date Seen: 07/21/24 Requesting Physician: Trevor Hernandez MD Primary Care Provider: Junior Lema, MD Consult Narrative Narrative: Donnie Cates Jr. is a 64 year old male seen at the request of Dr. Hernandez. He is currently admitted for cholecystitis. He underwent attempted a cholecystectomy but there was significant inflammation and a cholecystostomy tube was placed. Preop CT scan shows bilateral renal stones. Small stone on the right. Larger stones on the left in the lower pole. Repeat CT scan on this admission shows 1 of his left ureteral stones to now be in the proximal ureter. There is some hydronephrosis proximal to the stone. He has minimal flank pain at this point and complains of only low back pain and right upper quadrant pain. Baseline nausea as noted due to his coli cystitis. No vomiting. No blood in the urine or symptoms of urinary tract infection. 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 Code status: Full code. Smoking status: Never smoker Alcohol intake: current Drinks per week: 1 Substance use: never Substance use type: does not use Do You Feel Safe in your Home?: Yes Lack of Transportation: No Lack of Food: Never True Current Housing: I Have Housing Concerned About Future Housing: Decline to Answer Difficulty Paying Gas/Electric Bills: No Difficulty Paying for Meds: No Currently Unemployed: No Education: Bachelor's Degree Difficulty w/ Childcare or Family Care: No Living arrangements: with family Spiritual care concerns: No Meds Home Medications and Allergies Home Medications ?Medication ?Instructions ?Recorded ?Confirmed ?Type sertraline 100 mg tablet 100 mg PO DAILY 11/05/19 07/17/24 History tamsulosin 0.4 mg capsule 0.4 mg PO DAILY 04/12/20 07/17/24 History ferrous sulfate 27 mg iron tablet 27 mg PO DAILY 10/27/20 07/17/24 History omeprazole 40 mg capsule,delayed 40 mg PO DAILY 10/27/20 07/17/24 History release ondansetron 4 mg disintegrating 4 mg PO Q8H PRN nausea and 07/04/24 07/17/24 Rx tablet vomiting #14 tabs losartan 25 mg tablet 25 mg PO DAILY 07/17/24 07/17/24 History bupropion HCl 150 mg 24 hr tablet, 150 mg PO DAILY 07/18/24 07/18/24 History extended release Allergies Allergy/AdvReac Type Severity Reaction Status Date / Time No Known Allergies Allergy Verified 07/17/24 13:52 Vital Signs Vital Signs - 24 hr 07/20/24 09:20 07/20/24 12:00 07/20/24 12:00 Temperature 97.6 F Pulse Rate 89 100 Respiratory Rate 20 Blood Pressure 110/70 Pulse Oximetry 94 Oxygen Delivery Room Air 07/20/24 16:00 07/20/24 16:00 07/20/24 20:00 Temperature 97.8 F 98.9 F Pulse Rate 88 95 89 Respiratory Rate 20 16 Blood Pressure 115/74 117/83 Pulse Oximetry 95 93 Oxygen Delivery 07/20/24 20:00 07/20/24 20:00 07/20/24 21:03 Temperature Pulse Rate 92 Respiratory Rate Blood Pressure Pulse Oximetry 94 Oxygen Delivery Room Air Room Air 07/21/24 00:00 07/21/24 00:00 07/21/24 04:00 Temperature 98.7 F 98.8 F Pulse Rate 78 86 80 Respiratory Rate 17 17 Blood Pressure 106/74 111/71 Pulse Oximetry 95 92 Oxygen Delivery 07/21/24 04:00 Temperature Pulse Rate 87 Respiratory Rate Blood Pressure Pulse Oximetry Oxygen Delivery Exam 2 Const: General: cooperative, comfortable, no acute distress, well developed and obese Orientation/consciousness: patient oriented x3 Limitations: p hysical limitations (Due to hospitalize status) HENMT: Head: normal to inspection Eyes: General: appearance normal, both eyes and all related structures Neck: Neck: normal visual inspection and full ROM Resp: Effort & Inspection: normal respiratory effort and able to speak in complete sentences GI: Other: Cholecystostomy tube in place Back/Spine/Pelvis: Back: no CVA tenderness Skin: General skin exam: normal color and no rashes or lesions noted Neuro: General: patient oriented x3 and moves all extremities Extrem: General: normal to inspection and full ROM Psych: Appearance: grossly normal Results Labs 07/21/24 06:33 07/21/24 06:33 Labs: Short CBC 07/21/24 Range/Units 06:33 WBC 17.4 H (4.5-10.0) K/mm3 Hgb 11.3 L (14.0-18.0) g/dL Hct 35.9 L (42.0-52.0) % Plt Count 327 (150-375) k/mm3 BMP 07/21/24 06:33 Sodium 130 L Potassium 3.8 Chloride 100 Carbon Dioxide 22 BUN 19 Creatinine 0.98 Glucose 92 Calcium 8.2 L Liver Function 07/21/24 Range/Units 06:33 Total Bilirubin 0.6 (0.2-1.3) mg/dL AST 21 (17-59) U/L ALT 14 (6-50) U/L Alkaline Phosphatase 91 (38-126) U/L Albumin 2.8 L (3.5-5.1) g/dL Urine 07/21/24 Range/Units 00:24 Urine Color Dark yellow (Yellow) Urine Appearance Clear (Clear) Urine pH 5.5 (5.0-9.0) Ur Specific [place] 1.035 (1.001-1.035) Urine Protein 2+ H (Negative) mg/dL Urine Glucose (UA) Negative (Negative) mg/dL Imaging My impression: I reviewed CT scan myself. Small right renal stone. Left lower pole renal stone. Left ureteral stone in proximal ureter with proximal hydronephrosis
[2024-07-21] MEDS: PANTOPRAZOLE 40 MG TABLET PO (08:38)
[2024-07-21] MEDS: SERTRALINE HCL 50 MG TABLET 100 MG PO (08:38)
[2024-07-21] MEDS: LOSARTAN POTASSIUM 25 MG TABLET PO (08:38)
[2024-07-21] MEDS: buPROPion HCL XL (24 HR) 150 MG TABCR PO (08:38)
[2024-07-21] MEDS: ENOXAPARIN 40 MG/0.4 ML SYRINGE SUB-Q (08:38)
[2024-07-21] MEDS: polyethylene glycoL 3350 17 GM POWD.PACK PO ×2 (08:44→16:18)
--- NOTE | 2024-07-21 11:03 | PC.NURSE ---
Dr Torre on floor and notified of bilateral arms and upper thighs red and warm to touch.
--- NOTE | 2024-07-21 14:56 | PC.NURSE ---
1200 zoysn due to possible allergic reaction. Call placed to Dr Hernandez, awaiting return call.
--- NOTE | 2024-07-21 15:09 | P.PNIM_ITS ---
Progress Note: A&P Assessment and Plan (1) Acute calculous cholecystitis: Code(s): K80.00 - Calculus of gallbladder with acute cholecystitis without obstruction Status: Acute Assessment and Plan: Postoperative day 1 status post adhesiolysis and cholecystostomy tube and Rlyand drain insertion. Wound care, pain control, and DVT prophylaxis deferred to primary service. s/p ceftriaxone and metronidazole, now on ZOsyn failed cholecystectomy (2) Hypertension: Qualifiers: Hypertension type: unspecified Qualified Code(s): I10 - Essential (primary) hypertension Code(s): I10 - Essential (primary) hypertension Status: Chronic Assessment and Plan: Blood pressures were reviewed and they have been stable. Continue losartan 25 mg and monitor daily. (3) Benign prostatic hyperplasia: Code(s): N40.0 - Benign prostatic hyperplasia without lower urinary tract symptoms Status: Acute Assessment and Plan: Bladder scan p.r.n. Continue tamsulosin 0.4 mg daily. (4) Gastroesophageal reflux disease: Code(s): K21.9 - Gastro-esophageal reflux disease without esophagitis Status: Acute Assessment and Plan: No acute issues, continue PPI. (5) Depression with anxiety: Code(s): F41.8 - Other specified anxiety disorders Status: Acute Assessment and Plan: No acute issues, continue sertraline and bupropion. (6) Obstructive sleep apnea: Code(s): G47.33 - Obstructive sleep apnea (adult) (pediatric) Status: Chronic Assessment and Plan: CPAP will be provided for the patient to use while hospitalized if in fact he uses it at home. Plan Erythema Patient has erythema on extremities no pruritus Questionable medication allergies Will recommend switching Zosyn to another antibiotics (Levaquin and Meropenem) monitor DVT prophylaxis on Sq Lovenox I appreciate the opportunity to participate in the care of this patient Subjective Date/time seen: 07/21/24 15:09 Interval history: Comfortable at bedside However complained redness in extremities Review of Systems Review of Systems: 12 systems were reviewed and are negativ e except for as per HPI. Exam Narrative: General: Mildly ill-appearing male sitting in a chair at side of the bed. Weight: 156 kg. BMI: 40.8. HEENT: PERRL, EOMI. Sclera anicteric. Tacky mucous membranes. Neck: Supple. Respiratory: Lungs are clear to auscultation bilaterally. Cardiovascular: Regular rate and rhythm with S1-S2. Gastrointestinal: Abdomen is soft and slightly distended with hypoactive bowel sounds. Cholecystostomy tube draining a small amount of bloody appearing fluid. Skin: Warm and dry. Extremities: No cyanosis, clubbing, or significant edema. Radial and pedal pulses intact. Neurological: Alert. Cranial nerves 2-12 are grossly intact. No gross focal deficits to casual conversation. Psychiatric: Appropriate mood and affect. Objective Data Vital Signs Vital Signs: Vital Signs - 24 hr 07/20/24 16:00 07/20/24 16:00 07/20/24 20:00 Temperature 97.8 F 98.9 F Pulse Rate 88 95 89 Respiratory Rate 20 16 Blood Pressure 115/74 117/83 Pulse Oximetry 95 93 Oxygen Delivery 07/20/24 20:00 07/20/24 20:00 07/20/24 21:03 Temperature Pulse Rate 92 Respiratory Rate Blood Pressure Pulse Oximetry 94 Oxygen Delivery Room Air Room Air 07/21/24 00:00 07/21/24 00:00 07/21/24 04:00 Temperature 98.7 F 98.8 F Pulse Rate 78 86 80 Respiratory Rate 17 17 Blood Pressure 106/74 111/71 Pulse Oximetry 95 92 Oxygen Delivery 07/21/24 04:00 07/21/24 08:00 07/21/24 08:00 Temperature 97.6 F Pulse Rate 87 80 Respiratory Rate 20 Blood Pressure 110/73 Pulse Oximetry 94 92 Oxygen Delivery Room Air 07/21/24 08:00 07/21/24 12:00 07/21/24 12:00 Temperature 97.7 F Pulse Rate 82 104 H 79 Respiratory Rate 18 Blood Pressure 125/79 Pulse Oximetry 97 Oxygen Delivery Intake/Output Intake/Output: Intake & Output 07/18/24 07/19/24 07/20/24 07/21/24 23:59 23:59 23:59 23:59 Intake Total 5880 3847.5 6280 1320 Output Total 0600 715 1728 212 Balance 4070 2974.5 4580 1108 Meds/Results Medications: Active Medications Generic Name Dose Route Start Last Admin Trade Name Freq PRN Reason Stop Dose Admin Acetaminophen 500 mg 07/17/24 20:26 Acetaminophen 500 Mg Tablet PO Q6H PRN Pain Rated 1-3 Bupropion HCl 150 mg 07/20/24 09:00 07/21/24 08:38 Bupropion Hcl Xl (24 Hr) 150 Mg Tabcr PO 150 mg QAM JAVIER Administration Enoxaparin Sodium 40 mg 07/18/24 09:00 07/21/24 08:38 Enoxaparin 40 Mg/0.4 Ml Syringe SUB-Q 40 mg DAILY JAVIER Administration Ibuprofen 800 mg in 200 mls @ 400 mls/hr 07/17/24 20:26 Caldolor 800 Mg/200 Ml IVPB Q6H PRN Breakthrough Pain Rated 1-3 or NPO Metronidazole 500 mg in 100 mls @ 100 mls/hr 07/17/24 22:00 07/21/24 15:08 Flagyl 500 Mg/Iso Soln 100 Ml IVPB 100 mls/hr Q8HR JAVIER Administration Piperacillin Sod/Tazobactam Sod 4.5 gm in 100 mls @ 200 mls/hr 07/19/24 18:00 07/21/24 14:56 Zosyn 4.5 Gm/Ns 100 Ml IVPB Not Given Q6HR JAVIER Losartan Potassium 25 mg 07/18/24 09:00 07/21/24 08:38 Losartan Potassium 25 Mg Tablet PO 25 mg DAILY JAVIER Administration Morphine Sulfate 2 mg 07/17/24 20:26 Morphine Sulfate (*Crx) 2 Mg/Ml Inj IV PUSH Q2H PRN Breakthrough Pain Rated 4-6 or NPO Morphine Sulfate 4 mg 07/17/24 20:26 07/19/24 20:07 Morphine Sulfate (*Crx) 4 Mg/Ml Inj IV PUSH 4 mg Q2H PRN Administration Breakthrough Pain Rated 7-10 or NPO Naloxone HCl 0.1 mg 07/17/24 20:26 Naloxone Hcl 0.4 Mg/Ml Vial IV PUSH Q2M PRN Opiate Reversal Ondansetron HCl 4 mg 07/17/24 20:26 Ondansetron Inj 4 Mg/2 Ml Vial IV PUSH Q4H PRN Nausea And Vomiting Oxycodone/Acetaminophen 1 tablet 07/17/24 20:26 07/20/24 21:47 Oxycodone/Acetaminophen (*Crx) 5-325 Mg Tablet PO 1 tablet Q4H PRN Administration Pain Rated 4-6 Pantoprazole Sodium 40 mg 07/18/24 09:00 07/21/24 08:38 Pantoprazole 40 Mg Tablet PO 40 mg QAM JAVIER Administration Polyethylene Glycol 17 gm 07/21/24 09:00 07/21/24 08:44 Polyethylene Glycol 3350 17 Gm Powd.Pack PO 17 gm BID JAVIER Administration Senna/Docusate Sodium 2 tab 07/21/24 21:00 Senna/Docusate Sodium Tablet PO HS [facility] Sertraline HCl 100 mg 07/18/24 09:00 07/21/24 08:38 Sertraline Hcl 50 Mg Tablet PO 100 mg DAILY JAVIER Administration Tamsulosin HCl 0.4 mg 07/17/24 21:25 07/20/24 21:48 Tamsulosin Hcl 0.4 Mg Capsule PO 0.4 mg HS JAVIER Administration Radiology Results: ITS Impressions Abdomen/Pelvis CT 07/19/24 15:24 IMPRESSION: 1. Large amount of free air in the abdomen with the catheter seen anteriorly not reaching to the gallbladder. Minimal free fluid around the liver. 2. Thickened wall of the gallbladder with cholelithiasis. Cholecystitis is not excluded. 3. No evidence of appendicitis, diverticulitis or intestinal obstruction. 4. Stone in the left upper ureter with left hydronephrotic changes. 5. Stone in the left kidney lower pole and tiny stone in the right kidney upper pole. 6. Thickened wall of the urinary bladder anteriorly. Further evaluation advised. Enlarged prostate. 7. Air in the subcutaneous tissues of the anterior abdominal wall. 8. Right pleural effusion with adjacent atelectasis ADDENDUM: 07/21/24 1219 ADDENDUM: A few small gallstones are seen at the posterior margin of a spherical fluid a ttenuation Herman catheter bulb which is located within the decompressed gallbladder. The remainder the catheter is difficult to visualize but extends through the anterior abdominal wall slightly inferior to the inferior costal margin. This is separate from a surgical drain with the opaque marker, the distal tip of which is positioned along the periphery of the anteromedial margin of the gallbladder. Abdomen X-Ray 07/21/24 10:48 Impression: 1: Nonspecific bowel gas pattern with large amount of retained gas throughout the small bowel and colon, likely ileus. 2: Small right pleural effusion. Labs Labs: Laboratory Results - last 24 hr 07/21/24 07/21/24 00:24 06:33 WBC 17.4 H RBC 3.92 L Hgb 11.3 L Hct 35.9 L MCV 91.6 MCH 28.8 MCHC 31.5 L RDW 13.6 Plt Count 327 MPV 9.7 Immature Gran % (Auto) 1.0 H Neut % (Auto) 86.7 H Lymph % (Auto) 4.9 L [place] % (Auto) 4.8 Eos % (Auto) 2.1 Baso % (Auto) 0.5 Lymph # (Auto) 0.85 L [place] # (Auto) 0.8 H Eos # (Auto) 0.4 H Baso # (Auto) 0.1 Abs Immat Gran (auto) 0.17 H Absolute Neuts (auto) 15.1 H Absolute Nucleated RBC 0.000 Nucleated RBC % 0.0 Sodium 130 L Potassium 3.8 Chloride 100 Carbon Dioxide 22 Anion Gap 8 BUN 19 Creatinine 0.98 Estim Creat Clear Calc 113 Estimated GFR > 60 Glucose 92 Lactic Acid 0.8 Calcium 8.2 L Magnesium 2.1 Total Bilirubin 0.6 AST 21 ALT 14 Alkaline Phosphatase 91 Total Protein 6.0 L Albumin 2.8 L Urine Color Dark yellow Urine Appearance Clear Urine pH 5.5 Ur Specific [place] 1.035 Urine Protein 2+ H Urine Glucose (UA) Negative Urine Ketones Trace H Ur Blood (Man) Negative Urine Nitrate Negative Urine Bilirubin 1+ H Urine Urobilinogen 1.0 Ur Leukocyte Esterase 1+ H Add Ur Microanalysis Reviewed Urine RBC 3-5 H Urine WBC 6-10 H Ur Squamous Epith Cells Few Urine Bacteria None seen Urine Casts 6-10
[2024-07-21] MEDS: levoFLOXacin 750 MG/D5W 150 ML 750 MG/150 ML BAG 100 MG IVPB (16:19)
[2024-07-21] MEDS: TAMSULOSIN HCL 0.4 MG CAPSULE PO (21:07)
[2024-07-21] MEDS: SENNA/DOCUSATE SODIUM TABLET 2 TAB PO (21:07)
[2024-07-21] MEDS: ACETAMINOPHEN 500 MG TABLET PO (21:07)
[2024-07-22] VITALS (17 sets, daily range): BP systolic 116–149; BP diastolic 72–92; PULSE 77–97; RESP 16–24; TEMP 35.9–37.1; O2SAT 92–98
[2024-07-22] MEDS: metroNIDAZOLE 500 MG/ISO 100ML 500 MG/100 ML BAG 100 MG IVPB ×3 (05:22→20:46)
--- NOTE | 2024-07-22 06:42 | PM.PNGS ---
Progress Note: A&P Assessment and Plan (1) Ureteral stone: Code(s): N20.1 - Calculus of ureter Status: Acute Assessment and Plan: Plan is to go to surgery today and at least place a ureteral stent. (2) Calculus of gallbladder with acute and chronic cholecystitis with obstruction: Code(s): K80.13 - Calculus of gallbladder with acute and chronic cholecystitis with obstruction Status: Acute Assessment and Plan: Postop day 5. No longer having right upper quadrant pain, tolerating low-fat diet. (3) H/O insertion of cholecystostomy tube: Code(s): Z98.890 - Other specified postprocedural states Status: Acute Assessment and Plan: Reviewed CT yesterday with Dr. Nowak. Balloon from Herman catheter placed in the gallbladder was able to be seen in the appropriate position. No other significant findings on CT scan other than the hydronephrosis and ureteral stone noted above. Will get cholecystostomy tube cholangiogram today. If no leak, can start removing TEETEE drains over next couple of days. (4) S/P laparoscopy with lysis of adhesions: Code(s): Z98.890 - Other specified postprocedural states Status: Acute Assessment and Plan: Patient had surgery for 5 hours with laparoscopic lysis adhesion being performed for for those 5 hours due to severity of cholecystitis and probable length of time it has been going on. Despite all this, gallbladder could not safely be removed laparoscopically or, in my opinion, with an open approach. Cholecystostomy tube seems to be working well at this time. Plan is to refer him to hepatobiliary surgery at [facility] about 6 weeks from now. (5) History of gastric bypass: Onset Date: 11/2018 Code(s): Z98.84 - Bariatric surgery status Status: Chronic Assessment and Plan: This was done in 2019 (6) Morbid obesity with BMI of 40.0-44.9, adult: Code(s): E66.01 - Morbid (severe) obesity due to excess calories; Z68.41 - Body mass index [BMI] 40.0-44.9, adult Status: Chronic (7) Obstructive sleep apnea: Code(s): G47.33 - Obstructive sleep apnea (adult) (pediatric) Status: Chronic Subjective Subjective Date/Time Seen: 07/22/24 06:42 Post Op day: 5 Patient reports: no new complaints, pain is less (Left back pain a little better this morning), tolerating a regular diet, bowel movement and afebrile Exam Const: General: cooperative, comfortable, well developed, alert and awake Orientation/consciousness: patient oriented x3 GI: Inspection: incision (Healing well, TEETEE drains with serous fluid, decreasing output) and other (Cholecystostomy tube with dark green bile output that is minimal.) GI Palp: Yes Soft to palpation, Yes Tenderness to palpation present (GI) (Right upper quadrant and drain sites), No Hernia present and No Palpable mass present Objective Data Vital Signs Vital Signs: Vital Signs - 24 hr 07/21/24 08:00 07/21/24 08:00 07/21/24 08:00 Temperature 36.4 C Pulse Rate 80 82 Respiratory Rate 20 Blood Pressure 110/73 Pulse Oximetry 94 92 Oxygen Delivery Room Air 07/21/24 12:00 07/21/24 12:00 07/21/24 16:00 Temperature 36.5 C Pulse Rate 104 H 79 97 Respiratory Rate 18 Blood Pressure 125/79 Pulse Oximetry 97 Oxygen Delivery 07/21/24 16:00 07/21/24 20:00 07/21/24 20:00 Temperature 36.7 C 37.0 C Pulse Rate 94 95 94 Respiratory Rate 18 28 H Blood Pressure 122/77 130/85 Pulse Oximetry 95 96 Oxygen Delivery 07/21/24 23:35 07/22/24 00:00 07/22/24 00:00 Temperature 36.2 C L Pulse Rate 91 94 Respiratory Rate 20 Blood Pressure 116/80 Pulse Oximetry 96 95 Oxygen Delivery Autopap 07/22/24 04:00 07/22/24 04:00 Temperature 36.3 C L Pulse Rate 81 78 Respiratory Rate 20 Blood Pressure 128/78 Pulse Oximetry 94 Oxygen Delivery Intake/Output Intake/Output: Intake & Output 07/19/24 07/20/24 07/21/24 07/22/24 23:59 23:59 23:59 23:59 Intake Total 3847.5 6280 2170 600 Output Total 873 1700 223 Balance 2974.5 4580 1947 600 Meds/Results Medications: Active Medications Generic Name Dose Route Start Last Admin Trade Name Freq PRN Reason Stop Dose Admin Acetaminophen 500 mg 07/17/24 20:26 07/21/24 21:07 Acetaminophen 500 Mg Tablet PO 500 mg Q6H PRN Administration Pain Rated 1-3 Bupropion HCl 150 mg 07/20/24 09:00 07/21/24 08:38 Bupropion Hcl Xl (24 Hr) 150 Mg Tabcr PO 150 mg QAM JAVIER Administration Diphenhydramine HCl 25 mg 07/21/24 15:28 Diphenhydramine Hcl Inj 50 Mg/Ml Vial IV PUSH Q4H PRN Itching Enoxaparin Sodium 40 mg 07/18/24 09:00 07/21/24 08:38 Enoxaparin 40 Mg/0.4 Ml Syringe SUB-Q 40 mg DAILY JAVIER Administration Ibuprofen 800 mg in 200 mls @ 400 mls/hr 07/17/24 20:26 Caldolor 800 Mg/200 Ml IVPB Q6H PRN Breakthrough Pain Rated 1-3 or NPO Metronidazole 500 mg in 100 mls @ 100 mls/hr 07/17/24 22:00 07/22/24 05:22 Flagyl 500 Mg/Iso Soln 100 Ml IVPB 100 mls/hr Q8HR JAVIER Administration Levofloxacin/Dextrose 750 mg in 150 mls @ 100 mls/hr 07/21/24 16:00 07/21/24 16:19 Levaquin 750 Mg/D5w 150 Ml IVPB 100 mls/hr Q24H JAVIER Administration Losartan Potassium 25 mg 07/18/24 09:00 07/21/24 08:38 Losartan Potassium 25 Mg Tablet PO 25 mg DAILY JAVIER Administration Morphine Sulfate 2 mg 07/17/24 20:26 Morphine Sulfate (*Crx) 2 Mg/Ml Inj IV PUSH Q2H PRN Breakthrough Pain Rated 4-6 or NPO Morphine Sulfate 4 mg 07/17/24 20:26 07/19/24 20:07 Morphine Sulfate (*Crx) 4 Mg/Ml Inj IV PUSH 4 mg Q2H PRN Administration Breakthrough Pain Rated 7-10 or NPO Naloxone HCl 0.1 mg 07/17/24 20:26 Naloxone Hcl 0.4 Mg/Ml Vial IV PUSH Q2M PRN Opiate Reversal Ondansetron HCl 4 mg 07/17/24 20:26 Ondansetron Inj 4 Mg/2 Ml Vial IV PUSH Q4H PRN Nausea And Vomiting Oxycodone/Acetaminophen 1 tablet 07/17/24 20:26 07/20/24 21:47 Oxycodone/Acetaminophen (*Crx) 5-325 Mg Tablet PO 1 tablet Q4H PRN Administration Pain Rated 4-6 Pantoprazole Sodium 40 mg 07/18/24 09:00 07/21/24 08:38 Pantoprazole 40 Mg Tablet PO 40 mg QAM JAVIER Administration Polyethylene Glycol 17 gm 07/21/24 09:00 07/21/24 16:18 Polyethylene Glycol 3350 17 Gm Powd.Pack PO 17 gm BID JAVIER Administration Senna/Docusate Sodium 2 tab 07/21/24 21:00 07/21/24 21:07 Senna/Docusate Sodium Tablet PO 2 tab HS JAVIER Administration Sertraline HCl 100 mg 07/18/24 09:00 07/21/24 08:38 Sertraline Hcl 50 Mg Tablet PO 100 mg DAILY JAVIER Administration Tamsulosin HCl 0.4 mg 07/17/24 21:25 07/21/24 21:07 Tamsulosin Hcl 0.4 Mg Capsule PO 0.4 mg HS JAVIER Administration Radiology Results: ITS Impressions Abdomen/Pelvis CT 07/19/24 15:24 IMPRESSION: 1. Large amount of free air in the abdomen with the catheter seen anteriorly not reaching to the gallbladder. Minimal free fluid around the liver. 2. Thickened wall of the gallbladder with cholelithiasis. Cholecystitis is not excluded. 3. No evidence of appendicitis, diverticulitis or intestinal obstruction. 4. Stone in the left upper ureter with left hydronephrotic changes. 5. Stone in the left kidney lower pole and tiny stone in the right kidney upper pole. 6. Thickened wall of the urinary bladder anteriorly. Further evaluation advised. Enlarged prostate. 7. Air in the subcutaneous tissues of the anterior abdominal wall. 8. Right pleural effusion with adjacent atelectasis ADDENDUM: 07/21/24 1219 ADDENDUM: A few small gallstones are seen at the posterior margin of a spherical fluid attenuation Herman catheter bulb which is located within the decompressed gallbladder. The remainder the catheter is difficult to visualize but extends through the anterior abdominal wall slightly inferior to the inferior costal margin. This is separate from a surgical drain with the opaque marker, the distal tip of which is positioned along the periphery of the anteromedial margin of the gallbladder. Abdomen X-Ray 07/21/24 10:48 Impression: 1: Nonspecific bowel gas pattern with large amount of retained gas throughout the small bowel and colon, likely ileus. 2: Small right pleural effusion. Labs Labs: Laboratory Results - last 24 hr 07/21/24 06:33 WBC 17.4 H RBC 3.92 L Hgb 11.3 L Hct 35.9 L MCV 91.6 MCH 28.8 MCHC 31.5 L RDW 13.6 Plt Count 327 MPV 9.7 Immature Gran % (Auto) 1.0 H Neut % (Auto) 86.7 H Lymph % (Auto) 4.9 L [place] % (Auto) 4.8 Eos % (Auto) 2.1 Baso % (Auto) 0.5 Lymph # (Auto) 0.85 L [place] # (Auto) 0.8 H Eos # (Auto) 0.4 H Baso # (Auto) 0.1 Abs Immat Gran (auto) 0.17 H Absolute Neuts (auto) 15.1 H Absolute Nucleated RBC 0.000 Nucleated RBC % 0.0 Sodium 130 L Potassium 3.8 Chloride 100 Carbon Dioxide 22 Anion Gap 8 BUN 19 Creatinine 0.98 Estim Creat Clear Calc 113 Estimated GFR > 60 Glucose 92 Lactic Acid 0.8 Calcium 8.2 L Magnesium 2.1 Total Bilirubin 0.6 AST 21 ALT 14 Alkaline Phosphatase 91 Total Protein 6.0 L Albumin 2.8 L Pending all today's lab work at this time
[2024-07-22 07:01] LABS: Basophils Percent Auto 0.2 % (0.2-1.2); Eosinophils Absolute Auto 0.2 K/mm3 (0-0.3); Eosinophils Percent Auto 0.9 % (0-4.4); Hemoglobin 11.5 g/dL (14.0-18.0); Immature Granulocyte Absolute 0.22 K/mm3 (0.00-0.031); Immature Granulocyte Percent A 1.2 % (0-0.5); Lymphocytes Absolute Auto 0.82 K/mm3 (0.9-3.2); Lymphocytes Percent Auto 4.6 % (18.3-44.2); Mean Corpuscular HGB Conc 31.9 g/dl (32-36); Mean Corpuscular Hemoglobin 28.8 pg (26-34); Mean Corpuscular Volume 90.2 fl (80-100); Mean Platelet Volume 9.6 fl (7.4-10.4); Monocytes Percent Auto 5.3 % (2.6-8.5); Neutrophils Absolute Auto 15.7 K/mm3 (1.3-6.7); Neutrophils Percent Auto 87.8 % (45.5-73.1); Platelet Count Result 353 k/mm3 (150-375); Red Blood Count 3.99 M/mm3 (4.6-6.20); Red Cell Distribution Width 13.7 % (11.5-14.5); White Blood Count 17.9 K/mm3 (4.5-10.0)
[2024-07-22 07:13] LABS: INR 1.5
[2024-07-22 07:45] LABS: Alanine Aminotransferase 14 U/L (6-50); Albumin Level 2.9 g/dL (3.5-5.1); Alkaline Phosphatase 92 U/L (38-126); Anion Gap 10 mmol/L (4-12); Aspartate Amino Transferase 20 U/L (17-59); Bilirubin,Total 0.6 mg/dL (0.2-1.3); Blood Urea Nitrogen 13 mg/dL (9-20); Calcium 8.5 mg/dL (8.4-10.2); Carbon Dioxide 23 mmol/L (22-30); Chloride 99 mmol/L (98-107); Estimated CRCL calculation 140 ml/min; Estimated Glomerular Filt Rate > 60; Glucose 93 mg/dL (65-110); Potassium 3.5 mmol/L (3.4-5.0); Sodium 132 mmol/L (137-145)
[2024-07-22] MEDS: LACTATED RINGERS 1,000 ML 30 ML IV CONT (10:10)
--- NOTE | 2024-07-22 10:28 | P.PNAN_ITS ---
Anes - Initial Pre Proc Eval Procedure: Operation Date: 07/22/24 11:15 Proposed Procedures p Cystoscopy, Left Ureteral Stent Placement - Kory Fernandez MD Date/Time: 07/22/24 10:28 Surgeon: Trevor Hernandez MD Pre Op Diagnosis: Acute and chronic cholecystitis Patient Data Age: 64 Gender: M Height: 1.96 m Weight: 156 kg Last Vital Signs Temp 36.8 C 07/22/24 10:10 Pulse 95 07/22/24 10:10 Resp 16 07/22/24 10:10 BP 140/82 07/22/24 10:10 Pulse Ox 96 07/22/24 10:10 O2 Del Method Room Air 07/22/24 10:10 O2 Flow Rate 2 07/18/24 00:09 Allergies Allergy/AdvReac Type Severity Reaction Status Date / Time No Known Allergies Allergy Verified 07/17/24 13:52 Home Medications ?Medication ?Instructions ?Recorded ?Confirmed ?Type sertraline 100 mg tablet 100 mg PO DAILY 11/05/19 07/17/24 History tamsulosin 0.4 mg capsule 0.4 mg PO DAILY 04/12/20 07/17/24 History ferrous sulfate 27 mg iron tablet 27 mg PO DAILY 10/27/20 07/17/24 History omeprazole 40 mg capsule,delayed 40 mg PO DAILY 10/27/20 07/17/24 History release ondansetron 4 mg disintegrating 4 mg PO Q8H PRN nausea and 07/04/24 07/17/24 Rx tablet vomiting #14 tabs losartan 25 mg tablet 25 mg PO DAILY 07/17/24 07/17/24 History bupropion HCl 150 mg 24 hr tablet, 150 mg PO DAILY 07/18/24 07/18/24 History extended release Laboratory Tests 07/22/24 06:49 WBC 17.9 H K/mm3 (4.5-10.0) RBC 3.99 L M/mm3 (4.6-6.20) Hgb 11.5 L g/dL (14.0-18.0) Hct 36.0 L % (42.0-52.0) MCV 90.2 fl (80-100) MCH 28.8 pg (26-34) MCHC 31.9 L g/dl (32-36) RDW 13.7 % (11.5-14.5) Plt Count 353 k/mm3 (150-375) MPV 9.6 fl (7.4-10.4) Immature Gran % (Auto) 1.2 H % (0-0.5) Neut % (Auto) 87.8 H % (45.5-73.1) Lymph % (Auto) 4.6 L % (18.3-44.2) [place] % (Auto) 5.3 % (2.6-8.5) Eos % (Auto) 0.9 % (0-4.4) Baso % (Auto) 0.2 % (0.2-1.2) Lymph # (Auto) 0.82 L K/mm3 (0.9-3.2) [place] # (Auto) 1.0 H K/mm3 (0.1-0.6) Eos # (Auto) 0.2 K/mm3 (0-0.3) Baso # (Auto) 0.0 K/mm3 (0.0-0.1) Abs Immat Gran (auto) 0.22 H K/mm3 (0.00-0.031) Absolute Neuts (auto) 15.7 H K/mm3 (1.3-6.7) Absolute Nucleated RBC 0.000 K/mm3 (0.0-0.012) Nucleated RBC % 0.0 % (0.0-0.2) PT 18.0 H Seconds (11.1-14.7) INR 1.5 Sodium 132 L mmol/L (137-145) Potassium 3.5 mmol/L (3.4-5.0) Chloride 99 mmol/L (98-107) Carbon Dioxide 23 mmol/L (22-30) Anion Gap 10 mmol/L (4-12) BUN 13 D mg/dL (9-20) Creatinine 0.78 mg/dL (0.7-1.3) Estim Creat Clear Calc 140 ml/min Estimated GFR > 60 (59 - ) Glucose 93 mg/dL (65-110) Lactic Acid 1.0 mmol/L (0.7-2.0) Calcium 8.5 mg/dL (8.4-10.2) Magnesium 2.0 mg/dL (1.6-2.3) Total Bilirubin 0.6 mg/dL (0.2-1.3) AST 20 U/L (17-59) ALT 14 U/L (6-50) Alkaline Phosphatase 92 U/L (38-126) C-Reactive Protein Pending Total Protein 6.0 L g/dL (6.3-8.2) Albumin 2.9 L g/dL (3.5-5.1) Patient hx anesthesia problems: none Family hx anesthesia problems: none Results Review: All pre-operative results and documents have been reviewed as part of the pre- operative evaluation. 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 Code status: Full code. Smoking status: Never smoker Alcohol intake: current Drinks per week: 1 Substance use: never Substance use type: does not use Do You Feel Safe in your Home?: Yes Lack of Transportation: No Lack of Food: Never True Current Housing: I Have Housing Concerned About Future Housing: Decline to Answer Difficulty Paying Gas/Electric Bills: No Difficulty Paying for Meds: No Currently Unemployed: No Education: Bachelor's Degree Difficulty w/ Childcare or Family Care: No Living arrangements: with family Spiritual care concerns: No Anes - Eval Final PreProcedure Day of Procedure 07/22/24 10:28 Patient weight: morbidly obese Heart: regular rate and rhythm Lungs: clear to auscultation Airway: Mallampati scale class II Neurological: alert and oriented Last oral intake: >/= 8 hours ASA classification: III Emergent: no Anesthetic plan: proceed Anesthesia type and monitoring: general LMA and standard monitoring Results Review: All pre-operative results and documents have been reviewed as part of the pre- operative evaluation. Informed Consent: The patient's anesthetic plan and its attendant risks and benefits were discussed with the patient/family/POA. Questions were solicited and answers provided to the satisfaction of the patient/family/POA.
--- NOTE | 2024-07-22 10:32 | WPDHPUPDATE1 ---
History and Physical Update Update Date/Time: 07/22/24 10:32 History and Physical has been reviewed, including an updated exam of the patient. There are NO changes in the patient's condition. Risks, benefits, and alternatives have been discussed and questions answered. Patient agrees to proceed with procedure. Will proceed with cystoscopy, left retrograde, left stent placement at a minimum. Possible ureteroscopy with laser of stone if scope passes
[2024-07-22] MEDS: LIDOCAINE 2% GEL UROJET 10 ML PKG MUCOUS MEM (12:02)
--- NOTE | 2024-07-22 12:08 | W.PM.PROC2 ---
Procedure Note - Detailed Date of Procedure 07/22/24 Pre-op Diagnosis 8 mm left proximal ureteral calculus Post-op Diagnosis Same Procedure Performed Cystoscopy, left retrograde, left stent placement 4.8 Taiwanese contour Surgeon Kory Fernandez MD Anesthesia General Description of Procedure Patient was taken the operative suite correctly identified. Once anesthesia was obtained was placed in dorsal lithotomy position and prepped and draped usual sterile fashion. Twenty-two Taiwanese scope was inserted in the bladder there were no tumors noted. The left orifice was cannulated with a guidewire. I attempted to place an access sheath but it kept buckling due to tightness at the UO. At this point we decided to simply place a 4.8 Taiwanese contour stent with the proximal end coiled in the renal pelvis and the distal in the bladder. Will let the ureter passively dilate and attempt at a later point time. Patient was taken recovery room in stable condition. 2% viscous lidocaine had been placed into his bladder. This completes dictation. Please send a copy of op note to my office. Estimated Blood Loss -4,000 Packing Yes Pathology None sent Complications No immediate complications Condition Stable Disposition PACU
[2024-07-22 12:36] LABS: CRP 37.4 mg/dL (<1.0)
[2024-07-22] MEDS: buPROPion HCL XL (24 HR) 150 MG TABCR PO (14:06)
[2024-07-22] MEDS: ENOXAPARIN 40 MG/0.4 ML SYRINGE SUB-Q (14:06)
[2024-07-22] MEDS: LOSARTAN POTASSIUM 25 MG TABLET PO (14:07)
[2024-07-22] MEDS: SERTRALINE HCL 50 MG TABLET 100 MG PO (14:07)
[2024-07-22] MEDS: PANTOPRAZOLE 40 MG TABLET PO (14:07)
[2024-07-22] MEDS: levoFLOXacin 750 MG/D5W 150 ML 750 MG/150 ML BAG 100 MG IVPB (16:54)
--- NOTE | 2024-07-22 17:29 | P.PNIM_ITS ---
Progress Note: A&P Assessment and Plan (1) Acute calculous cholecystitis: Code(s): K80.00 - Calculus of gallbladder with acute cholecystitis without obstruction Status: Acute Assessment and Plan: Postoperative day 1 status post adhesiolysis and cholecystostomy tube and Ryland drain insertion. Wound care, pain control, and DVT prophylaxis deferred to primary service. s/p ceftriaxone and metronidazole, now on ZOsyn failed cholecystectomy (2) Hypertension: Qualifiers: Hypertension type: unspecified Qualified Code(s): I10 - Essential (primary) hypertension Code(s): I10 - Essential (primary) hypertension Status: Chronic Assessment and Plan: Blood pressures were reviewed and they have been stable. Continue losartan 25 mg and monitor daily. (3) Benign prostatic hyperplasia: Code(s): N40.0 - Benign prostatic hyperplasia without lower urinary tract symptoms Status: Acute Assessment and Plan: Bladder scan p.r.n. Continue tamsulosin 0.4 mg daily. (4) Gastroesophageal reflux disease: Code(s): K21.9 - Gastro-esophageal reflux disease without esophagitis Status: Acute Assessment and Plan: No acute issues, continue PPI. (5) Depression with anxiety: Code(s): F41.8 - Other specified anxiety disorders Status: Acute Assessment and Plan: No acute issues, continue sertraline and bupropion. (6) Obstructive sleep apnea: Code(s): G47.33 - Obstructive sleep apnea (adult) (pediatric) Status: Chronic Assessment and Plan: CPAP will be provided for the patient to use while hospitalized if in fact he uses it at home. Plan patient with abdominal pain s/p attempted laparoscopic cholecystectomy, laparoscopic placement of cholecystostomy tube POD #5, was seen by urologist today and had cystoscopy, left retrograde, left stent placement 4.8 Trin[place] contour, just returned from he OR, stats feels better and pain is control. Erythema Patient has erythema on extremities no pruritus Questionable medication allergies Will recommend switching Zosyn to another antibiotics (Levaquin and Meropenem) monitor DVT prophylaxis on Sq Lovenox I appreciate the opportunity to participate in the care of this patient Subjective Date/time seen: 07/22/24 17:29 Interval history: Comfortable at bedside However complained redness in extremities patient with abdominal pain s/p attempted laparoscopic cholecystectomy, laparoscopic placement of cholecystostomy tube POD #5, was seen by urologist today and had cystoscopy, left retrograde, left stent placement 4.8 Trinidadian contour, just returned from he OR, stats feels better and pain is control. Review of Systems Review of Systems: 12 systems were reviewed and are negativ e except for as per HPI. Exam Narrative: Morbidly obese Patient is comfortable, NAD HEENT: eyes are clear and none icteric LUNGS:CTA HEART: RR S1S2 ABD: BS+, Soft and nontender Lower extremities: no edema SKIN: nonjaundiced Neuro: grossly intact. Objective Data Vital Signs Vital Signs: Vital Signs - 24 hr 07/21/24 20:00 07/21/24 20:00 07/21/24 23:35 Temperature 37.0 C Pulse Rate 95 94 Respiratory Rate 28 H Blood Pressure 130/85 Pulse Oximetry 96 96 Oxygen Delivery Autopap Oxygen Flow Rate 07/22/24 00:00 07/22/24 00:00 07/22/24 04:00 Temperature 36.2 C L 36.3 C L Pulse Rate 91 94 81 Respiratory Rate 20 20 Blood Pressure 116/80 128/78 Pulse Oximetry 95 94 Oxygen Delivery Oxygen Flow Rate 07/22/24 04:00 07/22/24 07:50 07/22/24 08:00 Temperature 35.9 C L Pulse Rate 78 92 93 Respiratory Rate 16 Blood Pressure 126/79 Pulse Oximetry 95 Oxygen Delivery Oxygen Flow Rate 07/22/24 08:00 07/22/24 10:10 07/22/24 12:14 Temperature 36.8 C 36.5 C Pulse Rate 95 97 Respiratory Rate 16 23 H Blood Pressure 140/82 135/92 H Pulse Oximetry 95 96 96 Oxygen Delivery Room Air Room Air Simple Face Mask Oxygen Flow Rate 6 07/22/24 12:30 07/22/24 12:45 07/22/24 13:00 Temperature 36.8 C Pulse Rate 94 87 80 Respiratory Rate 21 H 20 20 Blood Pressure 131/82 134/72 140/83 Pulse Oximetry 98 92 93 Oxygen Delivery Simple Face Mask Room Air Room Air Oxygen Flow Rate 6 07/22/24 13:13 07/22/24 13:50 07/22/24 14:00 Temperature 36.5 C 37.0 C Pulse Rate 77 93 83 Respiratory Rate 24 H 19 17 Blood Pressure 146/90 H 145/83 H 133/80 Pulse Oximetry 95 95 96 Oxygen Delivery Room Air Oxygen Flow Rate 07/22/24 14:30 07/22/24 16:00 Temperature 37.1 C Pulse Rate 85 84 Respiratory Rate 16 Blood Pressure 132/79 Pulse Oximetry 95 Oxygen Delivery Oxygen Flow Rate Intake/Output Intake/Output: Intake & Output 07/19/24 07/20/24 07/21/24 07/22/24 23:59 23:59 23:59 23:59 Intake Total 3847.5 6280 2320 1000 Output Total 873 1700 223 123 Balance 2974.5 4580 2097 877 Meds/Results Medications: Active Medications Generic Name Dose Route Start Last Admin Trade Name Freq PRN Reason Stop Dose Admin Acetaminophen 500 mg 07/17/24 20:26 07/21/24 21:07 Acetaminophen 500 Mg Tablet PO 500 mg Q6H PRN Administration Pain Rated 1-3 Bupropion HCl 150 mg 07/20/24 09:00 07/22/24 14:06 Bupropion Hcl Xl (24 Hr) 150 Mg Tabcr PO 150 mg QAM JAVIER Administration Diphenhydramine HCl 25 mg 07/21/24 15:28 Diphenhydramine Hcl Inj 50 Mg/Ml Vial IV PUSH Q4H PRN Itching Enoxaparin Sodium 40 mg 07/18/24 09:00 07/22/24 14:06 Enoxaparin 40 Mg/0.4 Ml Syringe SUB-Q 40 mg DAILY JAVIER Administration Ibuprofen 800 mg in 200 mls @ 400 mls/hr 07/17/24 20:26 Caldolor 800 Mg/200 Ml IVPB Q6H PRN Breakthrough Pain Rated 1-3 or NPO Metronidazole 500 mg in 100 mls @ 100 mls/hr 07/17/24 22:00 07/22/24 14:07 Flagyl 500 Mg/Iso Soln 100 Ml IVPB 100 mls/hr Q8HR JAVIER Administration Levofloxacin/Dextrose 750 mg in 150 mls @ 100 mls/hr 07/21/24 16:00 07/22/24 16:54 Levaquin 750 Mg/D5w 150 Ml IVPB 100 mls/hr Q24H JAVIER Administration Losartan Potassium 25 mg 07/18/24 09:00 07/22/24 14:07 Losartan Potassium 25 Mg Tablet PO 25 mg DAILY JAVIER Administration Morphine Sulfate 2 mg 07/17/24 20:26 Morphine Sulfate (*Crx) 2 Mg/Ml Inj IV PUSH Q2H PRN Breakthrough Pain Rated 4-6 or NPO Morphine Sulfate 4 mg 07/17/24 20:26 07/19/24 20:07 Morphine Sulfate (*Crx) 4 Mg/Ml Inj IV PUSH 4 mg Q2H PRN Administration Breakthrough Pain Rated 7-10 or NPO Naloxone HCl 0.1 mg 07/17/24 20:26 Naloxone Hcl 0.4 Mg/Ml Vial IV PUSH Q2M PRN Opiate Reversal Ondansetron HCl 4 mg 07/17/24 20:26 Ondansetron Inj 4 Mg/2 Ml Vial IV PUSH Q4H PRN Nausea And Vomiting Oxycodone/Acetaminophen 1 tablet 07/17/24 20:26 07/20/24 21:47 Oxycodone/Acetaminophen (*Crx) 5-325 Mg Tablet PO 1 tablet Q4H PRN Administration Pain Rated 4-6 Pantoprazole Sodium 40 mg 07/18/24 09:00 07/22/24 14:07 Pantoprazole 40 Mg Tablet PO 40 mg QAM JAVIER Administration Polyethylene Glycol 17 gm 07/21/24 09:00 07/22/24 16:56 Polyethylene Glycol 3350 17 Gm Powd.Pack PO Not Given BID JAVIER Senna/Docusate Sodium 2 tab 07/21/24 21:00 07/21/24 21:07 Senna/Docusate Sodium Tablet PO 2 tab HS JAVIER Administration Sertraline HCl 100 mg 07/18/24 09:00 07/22/24 14:07 Sertraline Hcl 50 Mg Tablet PO 100 mg DAILY JAVIER Administration Tamsulosin HCl 0.4 mg 07/17/24 21:25 07/21/24 21:07 Tamsulosin Hcl 0.4 Mg Capsule PO 0.4 mg HS JAVIER Administration Radiology Results: ITS Impressions Abdomen/Pelvis CT 07/19/24 15:24 IMPRESSION: 1. Large amount of free air in the abdomen with the catheter seen anteriorly not reaching to the gallbladder. Minimal free fluid around the liver. 2. Thickened wall of the gallbladder with cholelithiasis. Cholecystitis is not excluded. 3. No evidence of appendicitis, diverticulitis or intestinal obstruction. 4. Stone in the left upper ureter with left hydronephrotic changes. 5. Stone in the left kidney lower pole and tiny stone in the right kidney upper pole. 6. Thickened wall of the urinary bladder anteriorly. Further evaluation advised. Enlarged prostate. 7. Air in the subcutaneous tissues of the anterior abdominal wall. 8. Right pleural effusion with adjacent atelectasis ADDENDUM: 07/21/24 1219 ADDENDUM: A few small gallstones are seen at the posterior margin of a spherical fluid attenuation Herman catheter bulb which is located within the decompressed gallbladder. The remainder the catheter is difficult to visualize but extends through the anterior abdominal wall slightly inferior to the inferior costal margin. This is separate from a surgical drain with the opaque marker, the distal tip of which is positioned along the periphery of the anteromedial margin of the gallbladder. Abdomen X-Ray 07/21/24 10:48 Impression: 1: Nonspecific bowel gas pattern with large amount of retained gas throughout the small bowel and colon, likely ileus. 2: Small right pleural effusion. Cholangiogram 07/22/24 09:48 IMPRESSION: 1. Cholelithiasis in the body and neck of the gallbladder with patent cystic and common bile ducts. No extraluminal contrast extravasation. Retrograde Pyelogram 07/22/24 12:18 IMPRESSION: 1. Fluoroscopy utilized during left internal ureteral stent placement with loops formed in the left renal pelvis. See procedure note for further detail.. Labs Labs: Laboratory Results - last 24 hr 07/22/24 06:49 WBC 17.9 H RBC 3.99 L Hgb 11.5 L Hct 36.0 L MCV 90.2 MCH 28.8 MCHC 31.9 L RDW 13.7 Plt Count 353 MPV 9.6 Immature Gran % (Auto) 1.2 H Neut % (Auto) 87.8 H Lymph % (Auto) 4.6 L Lee % (Auto) 5.3 Eos % (Auto) 0.9 Baso % (Auto) 0.2 Lymph # (Auto) 0.82 L Lee # (Auto) 1.0 H Eos # (Auto) 0.2 Baso # (Auto) 0.0 Abs Immat Gran (auto) 0.22 H Absolute Neuts (auto) 15.7 H Absolute Nucleated RBC 0.000 Nucleated RBC % 0.0 PT 18.0 H INR 1.5 Sodium 132 L Potassium 3.5 Chloride 99 Carbon Dioxide 23 Anion Gap 10 BUN 13 D Creatinine 0.78 Estim Creat Clear Calc 140 Estimated GFR > 60 Glucose 93 Lactic Acid 1.0 Calcium 8.5 Magnesium 2.0 Total Bilirubin 0.6 AST 20 ALT 14 Alkaline Phosphatase 92 C-Reactive Protein 37.4 H Total Protein 6.0 L Albumin 2.9 L
[2024-07-22] MEDS: TAMSULOSIN HCL 0.4 MG CAPSULE PO (20:39)
[2024-07-22] MEDS: ACETAMINOPHEN 500 MG TABLET PO (20:39)
[2024-07-23] VITALS (10 sets, daily range): BP systolic 126–142; BP diastolic 82–87; PULSE 85–106; RESP 14–20; TEMP 35.9–36.7; O2SAT 93–96
[2024-07-23] MEDS: metroNIDAZOLE 500 MG/ISO 100ML 500 MG/100 ML BAG 100 MG IVPB ×3 (06:18→20:24)
[2024-07-23] MEDS: SERTRALINE HCL 50 MG TABLET 100 MG PO (08:11)
[2024-07-23] MEDS: PANTOPRAZOLE 40 MG TABLET PO (08:11)
[2024-07-23] MEDS: LOSARTAN POTASSIUM 25 MG TABLET PO (08:11)
[2024-07-23] MEDS: buPROPion HCL XL (24 HR) 150 MG TABCR PO (08:11)
[2024-07-23] MEDS: ENOXAPARIN 40 MG/0.4 ML SYRINGE SUB-Q (08:12)
--- NOTE | 2024-07-23 09:14 | WPDUROPN2 ---
Progress Note: A&P Assessment and Plan (1) Ureteral stone: Code(s): N20.1 - Calculus of ureter Status: Acute (2) Right renal stone: Code(s): N20.0 - Calculus of kidney Status: Acute (3) Hydronephrosis: Code(s): N13.30 - Unspecified hydronephrosis Status: Acute Plan 64y old male with left ureteral stone s/p cystoscopy, left retrograde, left stent placement 07/22/2024. He is tolerating it well. -repeat ct abd pelvis wo contrast to reevaluate stone per Dr. Fernandez -urine culture pending -no labs noted for today at this time. -discharge date and ct results will depict course of ureteroscopy with stone extraction. likely outpatient. Subjective Subjective Date/Time Seen: 07/23/24 09:14 Interval history: Comfortable in chair States he feels pretty good. patient with abdominal pain s/p attempted laparoscopic cholecystectomy, laparoscopic placement of cholecystostomy tube POD #5, was seen by Dr. Fernandez yesterday and had cystoscopy, left retrograde, left stent placement 4.8 Occitan contour. states pain is control. Review of Systems Review of Systems: All systems reviewed & are unremarkable except as noted in HPI and below Constitutional: Constitutional: Reports as per HPI, Reports no additional constitutional complaints and Denies chills Eyes: Eyes: Reports as per HPI and Reports no additional eye complaints ENT: Reports system reviewed and no additional complaints, except as documented, Reports as per HPI and Reports Normal hearing present Cardiovascular: Cardiovascular: Reports as per HPI, Denies chest pain and Denies dyspnea Respiratory: Respiratory: Reports as per HPI and Denies dyspnea Gastrointestinal: Gastrointestinal: Reports as per HPI Genitourinary: Genitourinary: Reports no additional male genitourinary complaints, Reports as per HPI, Denies hematuria and Denies dysuria Musculoskeletal: Musculoskeletal: Reports no additional musculoskeletal complaints Integumentary/Breasts: Skin/Breast: Reports system reviewed and no additional complaints, except as docu Neurologic: Reports Normal hearing present Psychiatric: Psychiatric: Reports no additional psychiatric complaints Exam Const: General: cooperative, comfortable, no acute distress, well developed and obese Nutritional Appearance: obese Orientation/consciousness: patient oriented x3 Limitations: physical limitations (Due to hospitalize status) HENMT: Head: normal to inspection Mouth: Yes moist mucous membranes abnormal Eyes: General: appearance normal, both eyes and all related structures EOM: EOMs intact bilaterally Neck: Neck: normal visual inspection, full ROM and supple Resp: Effort & Inspection: normal respiratory effort and able to speak in complete sentences Auscultation: no wheezes Cardio: Rate: regular rate GI: Other: Cholecystostomy tube in place : General: Yes no CVA tenderness Other: no CVA TTP Back/Spine/Pelvis: Back: no CVA tenderness Skin: General skin exam: normal color and no rashes or lesions noted Neuro: General: patient oriented x3 and moves all extremities Cranial nerves: Yes Normal hearing present Extrem: General: normal to inspection and full ROM Psych: Appearance: grossly normal Speech and movement: Normal speech and movement present Objective Data Vital Signs Vital Signs: Vital Signs - 24 hr 07/22/24 10:10 07/22/24 12:14 07/22/24 12:30 Temperature 98.3 F 97.7 F Pulse Rate 95 97 94 Respiratory Rate 16 23 H 21 H Blood Pressure 140/82 135/92 H 131/82 Pulse Oximetry 96 96 98 Oxygen Delivery Room Air Simple Face Mask Simple Face Mask Oxygen Flow Rate 6 6 07/22/24 12:45 07/22/24 13:00 07/22/24 13:13 Temperature 98.2 F Pulse Rate 87 80 77 Respiratory Rate 20 20 24 H Blood Pressure 134/72 140/83 146/90 H Pulse Oximetry 92 93 95 Oxygen Delivery Room Air Room Air Room Air Oxygen Flow Rate 07/22/24 13:50 07/22/24 14:00 07/22/24 14:30 Temperature 97.7 F 98.6 F 98.8 F Pulse Rate 93 83 85 Respiratory Rate 19 17 16 Blood Pressure 145/83 H 133/80 132/79 Pulse Oximetry 95 96 95 Oxygen Delivery Oxygen Flow Rate 07/22/24 16:00 07/22/24 18:10 07/22/24 20:00 Temperature 97.8 F Pulse Rate 84 91 96 Respiratory Rate 16 Blood Pressure 143/78 H Pulse Oximetry 96 Oxygen Delivery Oxygen Flow Rate 07/22/24 20:25 07/23/24 00:00 07/23/24 00:00 Temperature 97 F L 97.4 F L Pulse Rate 93 95 90 Respiratory Rate 18 20 Blood Pressure 149/88 H 138/87 Pulse Oximetry 96 93 Oxygen Delivery Oxygen Flow Rate 07/23/24 04:15 07/23/24 08:00 07/23/24 08:00 Temperature 97.6 F Pulse Rate 94 94 Respiratory Rate 20 Blood Pressure 135/84 Pulse Oximetry 96 96 Oxygen Delivery Room Air Oxygen Flow Rate 07/23/24 09:00 Temperature 96.7 F L Pulse Rate 86 Respiratory Rate 18 Blood Pressure 126/83 Pulse Oximetry 94 Oxygen Delivery Oxygen Flow Rate Intake/Output Intake/Output: Intake & Output 07/20/24 07/21/24 07/22/24 07/23/24 23:59 23:59 23:59 23:59 Intake Total 6280 2320 1790 750 Output Total 1700 223 123 46 Balance 4580 9847 9912 034 Meds/Results Medications: Active Medications Generic Name Dose Route Start Last Admin Trade Name Freq PRN Reason Stop Dose Admin Acetaminophen 500 mg 07/17/24 20:26 07/22/24 20:39 Acetaminophen 500 Mg Tablet PO 500 mg Q6H PRN Administration Pain Rated 1-3 Bupropion HCl 150 mg 07/20/24 09:00 07/23/24 08:11 Bupropion Hcl Xl (24 Hr) 150 Mg Tabcr PO 150 mg QAM JAVIER Administration Diphenhydramine HCl 25 mg 07/21/24 15:28 Diphenhydramine Hcl Inj 50 Mg/Ml Vial IV PUSH Q4H PRN Itching Enoxaparin Sodium 40 mg 07/18/24 09:00 07/23/24 08:12 Enoxaparin 40 Mg/0.4 Ml Syringe SUB-Q 40 mg DAILY JAVIER Administration Ibuprofen 800 mg in 200 mls @ 400 mls/hr 07/17/24 20:26 Caldolor 800 Mg/200 Ml IVPB Q6H PRN Breakthrough Pain Rated 1-3 or NPO Metronidazole 500 mg in 100 mls @ 100 mls/hr 07/17/24 22:00 07/23/24 06:18 Flagyl 500 Mg/Iso Soln 100 Ml IVPB 100 mls/hr Q8HR JAVIER Administration Levofloxacin/Dextrose 750 mg in 150 mls @ 100 mls/hr 07/21/24 16:00 07/22/24 16:54 Levaquin 750 Mg/D5w 150 Ml IVPB 100 mls/hr Q24H JAVIER Administration Losartan Potassium 25 mg 07/18/24 09:00 07/23/24 08:11 Losartan Potassium 25 Mg Tablet PO 25 mg DAILY JAVIER Administration Morphine Sulfate 2 mg 07/17/24 20:26 Morphine Sulfate (*Crx) 2 Mg/Ml Inj IV PUSH Q2H PRN Breakthrough Pain Rated 4-6 or NPO Morphine Sulfate 4 mg 07/17/24 20:26 07/19/24 20:07 Morphine Sulfate (*Crx) 4 Mg/Ml Inj IV PUSH 4 mg Q2H PRN Administration Breakthrough Pain Rated 7-10 or NPO Naloxone HCl 0.1 mg 07/17/24 20:26 Naloxone Hcl 0.4 Mg/Ml Vial IV PUSH Q2M PRN Opiate Reversal Ondansetron HCl 4 mg 07/17/24 20:26 Ondansetron Inj 4 Mg/2 Ml Vial IV PUSH Q4H PRN Nausea And Vomiting Oxycodone/Acetaminophen 1 tablet 07/17/24 20:26 07/20/24 21:47 Oxycodone/Acetaminophen (*Crx) 5-325 Mg Tablet PO 1 tablet Q4H PRN Administration Pain Rated 4-6 Pantoprazole Sodium 40 mg 07/18/24 09:00 07/23/24 08:11 Pantoprazole 40 Mg Tablet PO 40 mg QAM JAVIER Administration Polyethylene Glycol 17 gm 07/21/24 09:00 07/23/24 08:11 Polyethylene Glycol 3350 17 Gm Powd.Pack PO Not Given BID JAVIER Senna/Docusate Sodium 2 tab 07/21/24 21:00 07/22/24 20:41 Senna/Docusate Sodium Tablet PO Not Given HS JAVIER Sertraline HCl 100 mg 07/18/24 09:00 07/23/24 08:11 Sertraline Hcl 50 Mg Tablet PO 100 mg DAILY JAVIER Administration Tamsulosin HCl 0.4 mg 07/17/24 21:25 07/22/24 20:39 Tamsulosin Hcl 0.4 Mg Capsule PO 0.4 mg HS JAVIER Administration Radiology Results: ITS Impressions Abdomen/Pelvis CT 07/19/24 15:24 IMPRESSION: 1. Large amount of free air in the abdomen with the catheter seen anteriorly not reaching to the gallbladder. Minimal free fluid around the liver. 2. Thickened wall of the gallbladder with cholelithiasis. Cholecystitis is not excluded. 3. No evidence of appendicitis, diverticulitis or intestinal obstruction. 4. Stone in the left upper ureter with left hydronephrotic changes. 5. Stone in the left kidney lower pole and tiny stone in the right kidney upper pole. 6. Thickened wall of the urinary bladder anteriorly. Further evaluation advised. Enlarged prostate. 7. Air in the subcutaneous tissues of the anterior abdominal wall. 8. Right pleural effusion with adjacent atelectasis ADDENDUM: 07/21/24 1219 ADDENDUM: A few small gallstones are seen at the posterior margin of a spherical fluid attenuation Herman catheter bulb which is located within the decompressed gallbladder. The remainder the catheter is difficult to visualize but extends through the anterior abdominal wall slightly inferior to the inferior costal margin. This is separate from a surgical drain with the opaque marker, the distal tip of which is positioned along the periphery of the anteromedial margin of the gallbladder. Abdomen X-Ray 07/21/24 10:48 Impression: 1: Nonspecific bowel gas pattern with large amount of retained gas throughout the small bowel and colon, likely ileus. 2: Small right pleural effusion. Cholangiogram 07/22/24 09:48 IMPRESSION: 1. Cholelithiasis in the body and neck of the gallbladder with patent cystic and common bile ducts. No extraluminal contrast extravasation. Retrograde Pyelogram 07/22/24 12:18 IMPRESSION: 1. Fluoroscopy utilized during left internal ureteral stent placement with loops formed in the left renal pelvis. See procedure note for further detail.. Labs Labs: Laboratory Results - last 24 hr 07/22/24 06:49 C-Reactive Protein 37.4 H
[2024-07-23 09:42] LABS: Hematocrit 35.9 % (42.0-52.0); Hemoglobin 11.4 g/dL (14.0-18.0); Mean Corpuscular HGB Conc 31.8 g/dl (32-36); Mean Corpuscular Hemoglobin 28.8 pg (26-34); Mean Corpuscular Volume 90.7 fl (80-100); Mean Platelet Volume 9.3 fl (7.4-10.4); Platelet Count Result 382 k/mm3 (150-375); Red Blood Count 3.96 M/mm3 (4.6-6.20); Red Cell Distribution Width 13.9 % (11.5-14.5); White Blood Count 18.5 K/mm3 (4.5-10.0)
[2024-07-23 09:51] LABS: Anion Gap 7 mmol/L (4-12); Blood Urea Nitrogen 10 mg/dL (9-20); Calcium 8.7 mg/dL (8.4-10.2); Carbon Dioxide 28 mmol/L (22-30); Chloride 98 mmol/L (98-107); Estimated CRCL calculation 131 ml/min; Estimated Glomerular Filt Rate > 60; Glucose 124 mg/dL (65-110); Magnesium 1.7 mg/dL (1.6-2.3); Potassium 4.8 mmol/L (3.4-5.0); Sodium 133 mmol/L (137-145)
[2024-07-23] MEDS: FUROSEMIDE INJ 40 MG/4 ML VIAL IV PUSH (12:03)
--- NOTE | 2024-07-23 12:30 | PM.PNGS ---
Progress Note: A&P Assessment and Plan (1) Ureteral stone: Code(s): N20.1 - Calculus of ureter Status: Acute Assessment and Plan: Cystoscopy with stent placement yesterday. (2) Calculus of gallbladder with acute and chronic cholecystitis with obstruction: Code(s): K80.13 - Calculus of gallbladder with acute and chronic cholecystitis with obstruction Status: Acute Assessment and Plan: Postop day 6. No longer having right upper quadrant pain, tolerating low-fat diet. (3) H/O insertion of cholecystostomy tube: Code(s): Z98.890 - Other specified postprocedural states Status: Acute Assessment and Plan: Cholangiogram yesterday demonstrated cholelithiasis with patent cystic and common bile duct. No extraluminal contrast extravasation. TEETEE drains removed today. Continue IV antibiotics and consider discharge within next few days. Switch to oral abx if patient remains stable. (4) S/P laparoscopy with lysis of adhesions: Code(s): Z98.890 - Other specified postprocedural states Status: Acute Assessment and Plan: Patient had surgery for 5 hours with laparoscopic lysis adhesion being performed for for those 5 hours due to severity of cholecystitis and probable length of time it has been going on. Despite all this, gallbladder could not safely be removed laparoscopically or, in my opinion, with an open approach. Cholecystostomy tube seems to be working well at this time. Plan is to refer him to hepatobiliary surgery at [facility] about 6 weeks from now. (5) History of gastric bypass: Onset Date: 11/2018 Code(s): Z98.84 - Bariatric surgery status Status: Chronic Assessment and Plan: This was done in 2019 (6) Morbid obesity with BMI of 40.0-44.9, adult: Code(s): E66.01 - Morbid (severe) obesity due to excess calories; Z68.41 - Body mass index [BMI] 40.0-44.9, adult Status: Chronic (7) Obstructive sleep apnea: Code(s): G47.33 - Obstructive sleep apnea (adult) (pediatric) Status: Chronic Subjective Subjective Date/Time Seen: 07/23/24 12:30 Interval history: Patient is doing well today. Does not not any pain. Stable overnight. WBC 18.5, but could be due to stent placement or ureteral stone. TEETEE drains with scant output and removed today. Patient tolerated well. Exam GI: Inspection: no abdominal wall ecchymosis, incision (Healing well, TEETEE drains with serous fluid, decreasing output), obesity, scar and other (Cholecystostomy tube with dark green bile output that is minimal.) Other: Abdomen is soft but moderately distended. Incisions are all healing appropriately. Drains had scant serosanguineous output and were removed today. Cholecystostomy tube has typical appearing nonpurulent bile noted. Objective Data Vital Signs Vital Signs: Vital Signs - 24 hr 07/22/24 12:45 07/22/24 13:00 07/22/24 13:13 Temperature 98.2 F Pulse Rate 87 80 77 Respiratory Rate 20 20 24 H Blood Pressure 134/72 140/83 146/90 H Pulse Oximetry 92 93 95 Oxygen Delivery Room Air Room Air Room Air 07/22/24 13:50 07/22/24 14:00 07/22/24 14:30 Temperature 97.7 F 98.6 F 98.8 F Pulse Rate 93 83 85 Respiratory Rate 19 17 16 Blood Pressure 145/83 H 133/80 132/79 Pulse Oximetry 95 96 95 Oxygen Delivery 07/22/24 16:00 07/22/24 18:10 07/22/24 20:00 Temperature 97.8 F Pulse Rate 84 91 96 Respiratory Rate 16 Blood Pressure 143/78 H Pulse Oximetry 96 Oxygen Delivery 07/22/24 20:25 07/23/24 00:00 07/23/24 00:00 Temperature 97 F L 97.4 F L Pulse Rate 93 95 90 Respiratory Rate 18 20 Blood Pressure 149/88 H 138/87 Pulse Oximetry 96 93 Oxygen Delivery 07/23/24 04:15 07/23/24 08:00 07/23/24 08:00 Temperature 97.6 F Pulse Rate 94 94 Respiratory Rate 20 Blood Pressure 135/84 Pulse Oximetry 96 96 Oxygen Delivery Room Air 07/23/24 09:00 Temperature 96.7 F L Pulse Rate 86 Respiratory Rate 18 Blood Pressure 126/83 Pulse Oximetry 94 Oxygen Delivery Intake/Output Intake/Output: Intake & Output 07/20/24 07/21/24 07/22/24 07/23/24 23:59 23:59 23:59 23:59 Intake Total 6280 2320 1790 990 Output Total 1700 223 123 46 Balance 4580 9387 1667 944 Meds/Results Medications: Active Medications Generic Name Dose Route Start Last Admin Trade Name Freq PRN Reason Stop Dose Admin Acetaminophen 500 mg 07/17/24 20:26 07/22/24 20:39 Acetaminophen 500 Mg Tablet PO 500 mg Q6H PRN Administration Pain Rated 1-3 Bupropion HCl 150 mg 07/20/24 09:00 07/23/24 08:11 Bupropion Hcl Xl (24 Hr) 150 Mg Tabcr PO 150 mg QAM JAVIER Administration Diphenhydramine HCl 25 mg 07/21/24 15:28 Diphenhydramine Hcl Inj 50 Mg/Ml Vial IV PUSH Q4H PRN Itching Enoxaparin Sodium 40 mg 07/18/24 09:00 07/23/24 08:12 Enoxaparin 40 Mg/0.4 Ml Syringe SUB-Q 40 mg DAILY JAVIER Administration Ibuprofen 800 mg in 200 mls @ 400 mls/hr 07/17/24 20:26 Caldolor 800 Mg/200 Ml IVPB Q6H PRN Breakthrough Pain Rated 1-3 or NPO Metronidazole 500 mg in 100 mls @ 100 mls/hr 07/17/24 22:00 07/23/24 06:18 Flagyl 500 Mg/Iso Soln 100 Ml IVPB 100 mls/hr Q8HR JAVIER Administration Levofloxacin/Dextrose 750 mg in 150 mls @ 100 mls/hr 07/21/24 16:00 07/22/24 16:54 Levaquin 750 Mg/D5w 150 Ml IVPB 100 mls/hr Q24H JAVIER Administration Losartan Potassium 25 mg 07/18/24 09:00 07/23/24 08:11 Losartan Potassium 25 Mg Tablet PO 25 mg DAILY JAVIER Administration Morphine Sulfate 2 mg 07/17/24 20:26 Morphine Sulfate (*Crx) 2 Mg/Ml Inj IV PUSH Q2H PRN Breakthrough Pain Rated 4-6 or NPO Morphine Sulfate 4 mg 07/17/24 20:26 07/19/24 20:07 Morphine Sulfate (*Crx) 4 Mg/Ml Inj IV PUSH 4 mg Q2H PRN Administration Breakthrough Pain Rated 7-10 or NPO Naloxone HCl 0.1 mg 07/17/24 20:26 Naloxone Hcl 0.4 Mg/Ml Vial IV PUSH Q2M PRN Opiate Reversal Ondansetron HCl 4 mg 07/17/24 20:26 Ondansetron Inj 4 Mg/2 Ml Vial IV PUSH Q4H PRN Nausea And Vomiting Oxycodone/Acetaminophen 1 tablet 07/17/24 20:26 07/20/24 21:47 Oxycodone/Acetaminophen (*Crx) 5-325 Mg Tablet PO 1 tablet Q4H PRN Administration Pain Rated 4-6 Pantoprazole Sodium 40 mg 07/18/24 09:00 07/23/24 08:11 Pantoprazole 40 Mg Tablet PO 40 mg QAM JAVIER Administration Polyethylene Glycol 17 gm 07/21/24 09:00 07/23/24 08:11 Polyethylene Glycol 3350 17 Gm Powd.Pack PO Not Given BID JAVIER Senna/Docusate Sodium 2 tab 07/21/24 21:00 07/22/24 20:41 Senna/Docusate Sodium Tablet PO Not Given HS JAVIER Sertraline HCl 100 mg 07/18/24 09:00 07/23/24 08:11 Sertraline Hcl 50 Mg Tablet PO 100 mg DAILY JAVIER Administration Tamsulosin HCl 0.4 mg 07/17/24 21:25 07/22/24 20:39 Tamsulosin Hcl 0.4 Mg Capsule PO 0.4 mg HS JAVIER Administration Radiology Results: ITS Impressions Abdomen X-Ray 07/21/24 10:48 Impression: 1: Nonspecific bowel gas pattern with large amount of retained gas throughout the small bowel and colon, likely ileus. 2: Small right pleural effusion. Cholangiogram 07/22/24 09:48 IMPRESSION: 1. Cholelithiasis in the body and neck of the gallbladder with patent cystic and common bile ducts. No extraluminal contrast extravasation. Retrograde Pyelogram 07/22/24 12:18 IMPRESSION: 1. Fluoroscopy utilized during left internal ureteral stent placement with loops formed in the left renal pelvis. See procedure note for further detail.. Venous Doppler Study 07/23/24 11:55 IMPRESSION: 1. No deep venous thrombosis in either lower limb. Labs Labs: Laboratory Results - last 24 hr 07/22/24 07/23/24 06:49 09:33 WBC 18.5 H RBC 3.96 L Hgb 11.4 L Hct 35.9 L MCV 90.7 MCH 28.8 MCHC 31.8 L RDW 13.9 Plt Count 382 H MPV 9.3 Sodium 133 L Potassium 4.8 Chloride 98 Carbon Dioxide 28 Anion Gap 7 BUN 10 Creatinine 0.84 Estim Creat Clear Calc 131 Estimated GFR > 60 Glucose 124 H Calcium 8.7 Magnesium 1.7 C-Reactive Protein 37.4 H
--- NOTE | 2024-07-23 14:42 | P.PNIM_ITS ---
Progress Note: A&P Assessment and Plan (1) Acute calculous cholecystitis: Code(s): K80.00 - Calculus of gallbladder with acute cholecystitis without obstruction Status: Acute Assessment and Plan: Postoperative day 1 status post adhesiolysis and cholecystostomy tube and Ryland drain insertion. Wound care, pain control, and DVT prophylaxis deferred to primary service. s/p ceftriaxone and metronidazole, now on ZOsyn failed cholecystectomy (2) Hypertension: Qualifiers: Hypertension type: unspecified Qualified Code(s): I10 - Essential (primary) hypertension Code(s): I10 - Essential (primary) hypertension Status: Chronic Assessment and Plan: Blood pressures were reviewed and they have been stable. Continue losartan 25 mg and monitor daily. (3) Benign prostatic hyperplasia: Code(s): N40.0 - Benign prostatic hyperplasia without lower urinary tract symptoms Status: Acute Assessment and Plan: Bladder scan p.r.n. Continue tamsulosin 0.4 mg daily. (4) Gastroesophageal reflux disease: Code(s): K21.9 - Gastro-esophageal reflux disease without esophagitis Status: Acute Assessment and Plan: No acute issues, continue PPI. (5) Depression with anxiety: Code(s): F41.8 - Other specified anxiety disorders Status: Acute Assessment and Plan: No acute issues, continue sertraline and bupropion. (6) Obstructive sleep apnea: Code(s): G47.33 - Obstructive sleep apnea (adult) (pediatric) Status: Chronic Assessment and Plan: CPAP will be provided for the patient to use while hospitalized if in fact he uses it at home. Plan patient with abdominal pain s/p attempted laparoscopic cholecystectomy, laparoscopic placement of cholecystostomy tube POD #6, was seen by urologist on 07/22 and had cystoscopy, left retrograde, left stent placement 4.8 [place] contour, patient seen by his surgeon, and TEETEE drains was removed today recommended to conitnue IV abx, today patient c/o of b/l extremities edma, calf are swollen to further evaluate will do dopplor to r/o DVT, which was negative for DVT, will start patient on furosemide and diuresed the patient and monitor. Erythema Patient has erythema on extremities no pruritus Questionable medication allergies Will recommend switching Zosyn to another antibiotics (Levaquin and Meropenem) monitor DVT prophylaxis on Sq Lovenox I appreciate the opportunity to participate in the care of this patient Subjective Date/time seen: 06/04/25 14:42 Interval history: Comfortable at bedside However complained redness in extremities patient with abdominal pain s/p attempted laparoscopic cholecystectomy, laparoscopic placement of cholecystostomy tube POD #6, was seen by urologist on 07/22 and had cystoscopy, left retrograde, left stent placement 4.8 [place] contour, patient seen by his surgeon, and TEETEE drains was removed today recommended to conitnue IV abx, today patient c/o of b/l extremities edma, calf are swollen to further evaluate will do dopplor to r/o DVT, which was negative f or DVT, will start patient on furosemide and diuresed the patient and monitor. Review of Systems Review of Systems: 12 systems were reviewed and are negativ e except for as per HPI. Exam Narrative: Morbidly obese Patient is comfortable, NAD HEENT: eyes are clear and none icteric LUNGS:CTA HEART: RR S1S2 ABD: BS+, Soft and nontender Lower extremities: no edema SKIN: nonjaundiced Neuro: grossly intact. Objective Data Vital Signs Vital Signs: Vital Signs - 24 hr 07/22/24 16:00 07/22/24 18:10 07/22/24 20:00 Temperature 36.6 C Pulse Rate 84 91 96 Respiratory Rate 16 Blood Pressure 143/78 H Pulse Oximetry 96 Oxygen Delivery 07/22/24 20:25 07/23/24 00:00 07/23/24 00:00 Temperature 36.1 C L 36.3 C L Pulse Rate 93 95 90 Respiratory Rate 18 20 Blood Pressure 149/88 H 138/87 Pulse Oximetry 96 93 Oxygen Delivery 07/23/24 04:15 07/23/24 08:00 07/23/24 08:00 Temperature 36.4 C Pulse Rate 94 94 Respiratory Rate 20 Blood Pressure 135/84 Pulse Oximetry 96 96 Oxygen Delivery Room Air 07/23/24 09:00 07/23/24 12:00 07/23/24 12:51 Temperature 35.9 C L 36.3 C L Pulse Rate 86 102 H 106 H Respiratory Rate 18 18 Blood Pressure 126/83 142/82 H Pulse Oximetry 94 95 Oxygen Delivery Intake/Output Intake/Output: Intake & Output 07/20/24 07/21/24 07/22/24 07/23/24 23:59 23:59 23:59 23:59 Intake Total 6280 2320 1790 1090 Output Total 1700 196 618 9201 Balance 4580 2097 1667 44 Meds/Results Medications: Active Medications Generic Name Dose Route Start Last Admin Trade Name Freq PRN Reason Stop Dose Admin Acetaminophen 500 mg 07/17/24 20:26 07/22/24 20:39 Acetaminophen 500 Mg Tablet PO 500 mg Q6H PRN Administration Pain Rated 1-3 Bupropion HCl 150 mg 07/20/24 09:00 07/23/24 08:11 Bupropion Hcl Xl (24 Hr) 150 Mg Tabcr PO 150 mg QAM JAVIER Administration Diphenhydramine HCl 25 mg 07/21/24 15:28 Diphenhydramine Hcl Inj 50 Mg/Ml Vial IV PUSH Q4H PRN Itching Enoxaparin Sodium 40 mg 07/18/24 09:00 07/23/24 08:12 Enoxaparin 40 Mg/0.4 Ml Syringe SUB-Q 40 mg DAILY JAVIER Administration Ibuprofen 800 mg in 200 mls @ 400 mls/hr 07/17/24 20:26 Caldolor 800 Mg/200 Ml IVPB Q6H PRN Breakthrough Pain Rated 1-3 or NPO Metronidazole 500 mg in 100 mls @ 100 mls/hr 07/17/24 22:00 07/23/24 13:52 Flagyl 500 Mg/Iso Soln 100 Ml IVPB 100 mls/hr Q8HR JAVIER Administration Levofloxacin/Dextrose 750 mg in 150 mls @ 100 mls/hr 07/21/24 16:00 07/22/24 16:54 Levaquin 750 Mg/D5w 150 Ml IVPB 100 mls/hr Q24H JAVIER Administration Losartan Potassium 25 mg 07/18/24 09:00 07/23/24 08:11 Losartan Potassium 25 Mg Tablet PO 25 mg DAILY JAVIER Administration Morphine Sulfate 2 mg 07/17/24 20:26 Morphine Sulfate (*Crx) 2 Mg/Ml Inj IV PUSH Q2H PRN Breakthrough Pain Rated 4-6 or NPO Morphine Sulfate 4 mg 07/17/24 20:26 07/19/24 20:07 Morphine Sulfate (*Crx) 4 Mg/Ml Inj IV PUSH 4 mg Q2H PRN Administration Breakthrough Pain Rated 7-10 or NPO Naloxone HCl 0.1 mg 07/17/24 20:26 Naloxone Hcl 0.4 Mg/Ml Vial IV PUSH Q2M PRN Opiate Reversal Ondansetron HCl 4 mg 07/17/24 20:26 Ondansetron Inj 4 Mg/2 Ml Vial IV PUSH Q4H PRN Nausea And Vomiting Oxycodone/Acetaminophen 1 tablet 07/17/24 20:26 07/20/24 21:47 Oxycodone/Acetaminophen (*Crx) 5-325 Mg Tablet PO 1 tablet Q4H PRN Administration Pain Rated 4-6 Pantoprazole Sodium 40 mg 07/18/24 09:00 07/23/24 08:11 Pantoprazole 40 Mg Tablet PO 40 mg QAM JAVIER Administration Polyethylene Glycol 17 gm 07/21/24 09:00 07/23/24 08:11 Polyethylene Glycol 3350 17 Gm Powd.Pack PO Not Given BID JAVIER Senna/Docusate Sodium 2 tab 07/21/24 21:00 07/22/24 20:41 Senna/Docusate Sodium Tablet PO Not Given HS JAVIER Sertraline HCl 100 mg 07/18/24 09:00 07/23/24 08:11 Sertraline Hcl 50 Mg Tablet PO 100 mg DAILY JAVIER Administration Tamsulosin HCl 0.4 mg 07/17/24 21:25 07/22/24 20:39 Tamsulosin Hcl 0.4 Mg Capsule PO 0.4 mg HS JAVIER Administration Radiology Results: ITS Impressions Abdomen X-Ray 07/21/24 10:48 Impression: 1: Nonspecific bowel gas pattern with large amount of retained gas throughout the small bowel and colon, likely ileus. 2: Small right pleural effusion. Cholangiogram 07/22/24 09:48 IMPRESSION: 1. Cholelithiasis in the body and neck of the gallbladder with patent cystic and common bile ducts. No extraluminal contrast extravasation. Retrograde Pyelogram 07/22/24 12:18 IMPRESSION: 1. Fluoroscopy utilized during left internal ureteral stent placement with loops formed in the left renal pelvis. See procedure note for further detail.. Venous Doppler Study 07/23/24 11:55 IMPRESSION: 1. No deep venous thrombosis in either lower limb. Abdomen/Pelvis CT 07/23/24 12:29 Impression: Increasing right upper quadrant pneumoperitoneum and fluid posterior to the liver, somewhat loculated in overall appearance. Correlate for loculated collec tion and iatrogenic air, or developing abscess, versus any possibility of bowel perforation, though the latter is felt to be less likely. Percutaneous catheter in the right upper quadrant with tip in the right upper quadrant, but not within the gallbladder. Probable contracted gallbladder with gallstones. Left ureteral stent with stable nonobstructing left lower pole renal stone. No hydronephrosis. No left ureteral stone at this time. [id number] right pleural effusion with right lower and middle lobe atelectatic change. Correlate clinically for pneumonia. Minimal left pleural effusion. Enlarged prostate gland. Labs Labs: Laboratory Results - last 24 hr 07/23/24 09:33 WBC 18.5 H RBC 3.96 L Hgb 11.4 L Hct 35.9 L MCV 90.7 MCH 28.8 MCHC 31.8 L RDW 13.9 Plt Count 382 H MPV 9.3 Sodium 133 L Potassium 4.8 Chloride 98 Carbon Dioxide 28 Anion Gap 7 BUN 10 Creatinine 0.84 Estim Creat Clear Calc 131 Estimated GFR > 60 Glucose 124 H Calcium 8.7 Magnesium 1.7
[2024-07-23] MEDS: levoFLOXacin 750 MG/D5W 150 ML 750 MG/150 ML BAG 100 MG IVPB (16:20)
[2024-07-23] MEDS: TAMSULOSIN HCL 0.4 MG CAPSULE PO (20:23)
[2024-07-24] VITALS (12 sets, daily range): BP systolic 130–148; BP diastolic 59–92; PULSE 78–102; RESP 14–24; TEMP 36.1–36.8; O2SAT 92–97; BMI 40.8
[2024-07-24] MEDS: metroNIDAZOLE 500 MG/ISO 100ML 500 MG/100 ML BAG 100 MG IVPB ×3 (05:23→20:31)
[2024-07-24 06:36] LABS: Hematocrit 37.2 % (42.0-52.0); Hemoglobin 11.7 g/dL (14.0-18.0); Mean Corpuscular HGB Conc 31.5 g/dl (32-36); Mean Corpuscular Hemoglobin 28.7 pg (26-34); Mean Corpuscular Volume 91.4 fl (80-100); Mean Platelet Volume 9.6 fl (7.4-10.4); Platelet Count Result 359 k/mm3 (150-375); Red Blood Count 4.07 M/mm3 (4.6-6.20); White Blood Count 18.7 K/mm3 (4.5-10.0)
[2024-07-24 06:57] LABS: Anion Gap 10 mmol/L (4-12); Blood Urea Nitrogen 10 mg/dL (9-20); Calcium 8.6 mg/dL (8.4-10.2); Carbon Dioxide 30 mmol/L (22-30); Chloride 94 mmol/L (98-107); Estimated CRCL calculation 143 ml/min; Estimated Glomerular Filt Rate > 60; Glucose 88 mg/dL (65-110); Magnesium 1.7 mg/dL (1.6-2.3); Potassium 3.6 mmol/L (3.4-5.0); Sodium 134 mmol/L (137-145)
[2024-07-24] MEDS: SERTRALINE HCL 50 MG TABLET 100 MG PO (09:25)
[2024-07-24] MEDS: buPROPion HCL XL (24 HR) 150 MG TABCR PO (09:25)
[2024-07-24] MEDS: PANTOPRAZOLE 40 MG TABLET PO (09:25)
[2024-07-24] MEDS: ENOXAPARIN 40 MG/0.4 ML SYRINGE SUB-Q (09:25)
[2024-07-24] MEDS: polyethylene glycoL 3350 17 GM POWD.PACK PO (09:25)
[2024-07-24] MEDS: LOSARTAN POTASSIUM 25 MG TABLET PO (09:25)
--- NOTE | 2024-07-24 12:01 | P.PNGS_ITS ---
Progress Note: A&P Assessment and Plan (1) S/P laparoscopy with lysis of adhesions: Code(s): Z98.890 - Other specified postprocedural states Status: Acute Assessment and Plan: * Postop day 7 following difficult attempted laparoscpoic cholecystectomy with placement of cholecystostomy tube. TEETEE drains removed yesterday. Cholecystostomy tube with minimal output. No leak on recent contrast study. * He is tolerating a low fat diet and bowels are moving. * Continue to monitor cholecystostomy tube. * WBC count slowly trending up over the past few days up to 18,700 today. He continues on IV Levaquin and Flagyl. He is afebrile with no abdominal pain or tenderness. His abd exam is completely benign. CT scan abd/pelvis ordered by Urology yesterday suggested an increasing RUQ pneumoperitoneum and fluid posterior to the liver, which could be iatrogenic air/abscess/bowel perforation. I reviewed the CT scan with the Radiologist today and compared this with his CT scan on 07/19. He had a large volume of free air on the CT from 07/19 but it was more anterior in the mid abdomen. The volume of pneumoperitoneum did not increase from the CT on 07/19, possibly actually decreased, but appears to have likely migrated superiorly into the RUQ. The pneumoperitoneum is still most likely postoperative findings, rather than a bowel perforation. There is a very small amount of fluid posteriorly behind the liver, but this is small enough it wouldn't indicate percutaneous drainage at this point and would be difficult to access percutaneously. In light of his leukocytosis, will continue IV antibiotics and repeat labs tomorrow, but there is no obvious surgical reason for his elevated WBC count at this time. (2) Ureteral stone: Code(s): N20.1 - Calculus of ureter Status: Acute Assessment and Plan: * S/p cystoscopy with stent placement (3) Calculus of gallbladder with acute and chronic cholecystitis with obstruction: Code(s): K80.13 - Calculus of gallbladder with acute and chronic cholecystitis with obstruction Status: Acute Assessment and Plan: * Postop day 7. See plan above. Incisions healing well. (4) H/O insertion of cholecystostomy tube: Code(s): Z98.890 - Other specified postprocedural states Status: Acute Assessment and Plan: * Continue to monitor cholecystostomy tube, which will remain in place at discharge. Plan to eventually refer to Hepatobiliary surgeon in 6 weeks as an outpatient. (5) History of gastric bypass: Onset Date: 11/2018 Code(s): Z98.84 - Bariatric surgery status Status: Chronic (6) Morbid obesity with BMI of 40.0-44.9, adult: Code(s): E66.01 - Morbid (severe) obesity due to excess calories; Z68.41 - Body mass index [BMI] 40.0-44.9, adult Status: Chronic (7) Obstructive sleep apnea: Code(s): G47.33 - Obstructive sleep apnea (adult) (pediatric) Status: Chronic Plan I have discussed the patient's case and plan of care with Dr. Seay. Subjective Subjective Date/Time Seen: 07/24/24 12:01 Post Op day: 7 Patient reports: no new complaints, tolerating a regular diet, flatus, bowel movement and afebrile Interval history: Patient feeling well. He denies any abdominal pain, nausea, or vomiting. Still his appetite is slightly poor, but he is able to tolerate a diet well without any issues. He has not taken any pain medication for 4 days. He is tolerating activity. Cholecystostomy tube has minimal output with only 10 cc in last 24 hours. WBC count trending up over the past few days, which is at 18,700 today. He is afebrile and has no other complaints. He denies any cough, chest pain, congestion, or leg pain. He reports bilateral lower extremity swelling, which has improved after receiving Lasix yesterday. He reportedly diuresed well. Exam Const: General: comfortable and no acute distress Orientation/consciousness: patient oriented x3 GI: Inspection: non-distended GI Palp: Yes Soft to palpation, No Tenderness to palpation present (GI), No Guarding due to palpation present (GI) and No Rebound tenderness present Auscultation: normal bowel sounds Other: Abdominal port site incisions are healing well with glue intact, no erythema or drainage. Two wounds where the TEETEE drains were removed yesterday had a dry/clean dressing in place, no erythema or purulent drainage. Cholecystostomy tube to gravity with no output in the bag, skin around the drain appears healthy with no erythema or drainage. Extrem: General: edema bilateral (lower extremity edema, reportedly improved) Objective Data Vital Signs Vital Signs: Vital Signs - 24 hr 07/23/24 12:51 07/23/24 16:00 07/23/24 17:00 Temperature 97.3 F L 97.9 F Pulse Rate 106 H 93 85 Respiratory Rate 18 18 Blood Pressure 142/82 H 135/82 Pulse Oximetry 95 94 07/23/24 20:00 07/23/24 20:40 07/24/24 00:00 Temperature 98.1 F Pulse Rate 93 89 92 Respiratory Rate 14 Blood Pressure 133/83 Pulse Oximetry 95 07/24/24 00:33 07/24/24 04:00 07/24/24 05:00 Temperature 97.1 F L 97.6 F Pulse Rate 102 H 79 78 Respiratory Rate 16 14 Blood Pressure 130/59 L 137/84 Pulse Oximetry 95 95 07/24/24 09:00 Temperature 97.3 F L Pulse Rate 89 Respiratory Rate 18 Blood Pressure 135/84 Pulse Oximetry 96 Intake/Output Intake/Output: Intake & Output 07/21/24 07/22/24 07/23/24 07/24/24 23:59 23:59 23:59 23:59 Intake Total 2320 1940 1550 500 Output Total 177 355 1625 Balance 2097 8917 494 500 Meds/Results Medications: Active Medications Generic Name Dose Route Start Last Admin Trade Name Freq PRN Reason Stop Dose Admin Acetaminophen 500 mg 07/17/24 20:26 07/22/24 20:39 Acetaminophen 500 Mg Tablet PO 500 mg Q6H PRN Administration Pain Rated 1-3 Bupropion HCl 150 mg 07/20/24 09:00 07/24/24 09:25 Bupropion Hcl Xl (24 Hr) 150 Mg Tabcr PO 150 mg QAM JAVIER Administration Diphenhydramine HCl 25 mg 07/21/24 15:28 Diphenhydramine Hcl Inj 50 Mg/Ml Vial IV PUSH Q4H PRN Itching Enoxaparin Sodium 40 mg 07/18/24 09:00 07/24/24 09:25 Enoxaparin 40 Mg/0.4 Ml Syringe SUB-Q 40 mg DAILY JAVIER Administration Ibuprofen 800 mg in 200 mls @ 400 mls/hr 07/17/24 20:26 Caldolor 800 Mg/200 Ml IVPB Q6H PRN Breakthrough Pain Rated 1-3 or NPO Metronidazole 500 mg in 100 mls @ 100 mls/hr 07/17/24 22:00 07/24/24 05:23 Flagyl 500 Mg/Iso Soln 100 Ml IVPB 100 mls/hr Q8HR JAVIER Administration Levofloxacin/Dextrose 750 mg in 150 mls @ 100 mls/hr 07/21/24 16:00 07/23/24 16:20 Levaquin 750 Mg/D5w 150 Ml IVPB 100 mls/hr Q24H AJVIER Administration Losartan Potassium 25 mg 07/18/24 09:00 07/24/24 09:25 Losartan Potassium 25 Mg Tablet PO 25 mg DAILY JAVIER Administration Morphine Sulfate 2 mg 07/17/24 20:26 Morphine Sulfate (*Crx) 2 Mg/Ml Inj IV PUSH Q2H PRN Breakthrough Pain Rated 4-6 or NPO Morphine Sulfate 4 mg 07/17/24 20:26 07/19/24 20:07 Morphine Sulfate (*Crx) 4 Mg/Ml Inj IV PUSH 4 mg Q2H PRN Administration Breakthrough Pain Rated 7-10 or NPO Naloxone HCl 0.1 mg 07/17/24 20:26 Naloxone Hcl 0.4 Mg/Ml Vial IV PUSH Q2M PRN Opiate Reversal Ondansetron HCl 4 mg 07/17/24 20:26 Ondansetron Inj 4 Mg/2 Ml Vial IV PUSH Q4H PRN Nausea And Vomiting Oxycodone/Acetaminophen 1 tablet 07/17/24 20:26 07/20/24 21:47 Oxycodone/Acetaminophen (*Crx) 5-325 Mg Tablet PO 1 tablet Q4H PRN Administration Pain Rated 4-6 Pantoprazole Sodium 40 mg 07/18/24 09:00 07/24/24 09:25 Pantoprazole 40 Mg Tablet PO 40 mg QAM JAVIER Administration Polyethylene Glycol 17 gm 07/21/24 09:00 07/24/24 09:25 Polyethylene Glycol 3350 17 Gm Powd.Pack PO 17 gm BID JAVIER Administration Senna/Docusate Sodium 2 tab 07/21/24 21:00 07/23/24 20:24 Senna/Docusate Sodium Tablet PO Not Given HS JAVIER Sertraline HCl 100 mg 07/18/24 09:00 07/24/24 09:25 Sertraline Hcl 50 Mg Tablet PO 100 mg DAILY JAVIER Administration Tamsulosin HCl 0.4 mg 07/17/24 21:25 07/23/24 20:23 Tamsulosin Hcl 0.4 Mg Capsule PO 0.4 mg HS JAVIER Administration Radiology Results: ITS Impressions Abdomen X-Ray 07/21/24 10:48 Impression: 1: Nonspecific bowel gas pattern with large amount of retained gas throughout the small bowel and colon, likely ileus. 2: Small right pleural effusion. Cholangiogram 07/22/24 09:48 IMPRESSION: 1. Cholelithiasis in the body and neck of the gallbladder with patent cystic and common bile ducts. No extraluminal contrast extravasation. Retrograde Pyelogram 07/22/24 12:18 IMPRESSION: 1. Fluoroscopy utilized during left internal ureteral stent placement with loops formed in the left renal pelvis. See procedure note for further detail.. Venous Doppler Study 07/23/24 11:55 IMPRESSION: 1. No deep venous thrombosis in either lower limb. Abdomen/Pelvis CT 07/23/24 12:29 Impression: Increasing right upper quadrant pneumoperitoneum and fluid posterior to the liver, somewhat loculated in overall appearance. Correlate for loculated collection and iatrogenic air, or developing abscess, versus any possibility of bowel perforation, though the latter is felt to be less likely. Percutaneous catheter in the right upper quadrant with tip in the right upper quadrant, but not within the gallbladder. Probable contracted gallbladder with gallstones. Left ureteral stent with stable nonobstructing left lower pole renal stone. No hydronephrosis. No left ureteral stone at this time. [id number] right pleural effusion with right lower and middle lobe atelectatic change. Correlate clinically for pneumonia. Minimal left pleural effusion. Enlarged prostate gland. Labs Labs: Laboratory Results - last 24 hr 07/24/24 06:24 WBC 18.7 H RBC 4.07 L Hgb 11.7 L Hct 37.2 L MCV 91.4 MCH 28.7 MCHC 31.5 L RDW 14.0 Plt Count 359 MPV 9.6 Sodium 134 L Potassium 3.6 Chloride 94 L Carbon Dioxide 30 Anion Gap 10 BUN 10 Creatinine 0.76 Estim Creat Clear Calc 143 Estimated GFR > 60 Glucose 88 Calcium 8.6 Magnesium 1.7
--- NOTE | 2024-07-24 15:22 | WPDUROPN2 ---
Progress Note: A&P Assessment and Plan (1) Ureteral stone: Code(s): N20.1 - Calculus of ureter Status: Acute (2) Right renal stone: Code(s): N20.0 - Calculus of kidney Status: Acute (3) Hydronephrosis: Code(s): N13.30 - Unspecified hydronephrosis Status: Acute Plan 64y old male with left ureteral stone s/p cystoscopy, left retrograde, left stent placement 07/22/2024. He is tolerating it well. -repeat ct reveals Left ureteral stent with stable nonobstructing left lower pole renal stone. No hydronephrosis. No left ureteral stone at this time. 07/23/2024 -urine culture shows no growth -discharge date and ct results will depict course of ureteroscopy with stone extraction. likely outpatient. Subjective Subjective Date/Time Seen: 07/24/24 15:22 Interval history: Comfortable at bedside complained redness and edema in BLE's patient with abdominal pain s/p attempted laparoscopic cholecystectomy, laparoscopic placement of cholecystostomy tube POD #7, was seen by Urology on 07/22 and had cystoscopy, left retrograde, left stent placement 4.8 [place] contour. Review of Systems Review of Systems: All systems reviewed & are unremarkable except as noted in HPI and below Constitutional: Constitutional: Reports as per HPI, Reports no additional constitutional complaints and Denies chills Eyes: Eyes: Reports as per HPI and Reports no additional eye complaints ENT: Reports system reviewed and no additional complaints, except as documented, Reports as per HPI and Reports Normal hearing present Cardiovascular: Cardiovascular: Reports as per HPI, Denies chest pain and Denies dyspnea Respiratory: Respiratory: Reports as per HPI and Denies dyspnea Gastrointestinal: Gastrointestinal: Reports as per HPI Genitourinary: Genitourinary: Reports no additional male genitourinary complaints, Reports as per HPI, Denies hematuria, Denies dysuria and Reports flank pain Musculoskeletal: Musculoskeletal: Reports no additional musculoskeletal complaints Integumentary/Breasts: Skin/Breast: Reports system reviewed and no additional complaints, except as docu Neurologic: Reports Normal hearing present Psychiatric: Psychiatric: Reports no additional psychiatric complaints Exam Const: General: cooperative, comfortable, no acute distress, well developed and obese Nutritional Appearance: obese Orientation/consciousness: patient oriented x3 Limitations: physical limitations (Due to hospitalize status) HENMT: Head: normal to inspection Mouth: Yes moist mucous membranes abnormal Eyes: General: appearance normal, both eyes and all related structures EOM: EOMs intact bilaterally Neck: Neck: normal visual inspection, full ROM and supple Resp: Effort & Inspection: normal respiratory effort and able to speak in complete sentences Auscultation: no wheezes Cardio: Rate: regular rate GI: Other: Cholecystostomy tube in place : General: Yes no CVA tenderness Other: no CVA TTP Back/Spine/Pelvis: Back: no CVA tenderness Skin: General skin exam: normal color and no rashes or lesions noted Neuro: General: patient oriented x3 and moves all extremities Cranial nerves: Yes Normal hearing present Extrem: General: normal to inspection and full ROM Other: ble edema 4+ Psych: Appearance: grossly normal Speech and movement: Normal speech and movement present Objective Data Vital Signs Vital Signs: Vital Signs - 24 hr 07/23/24 16:00 07/23/24 17:00 07/23/24 20:00 Temperature 97.9 F Pulse Rate 93 85 93 Respiratory Rate 18 Blood Pressure 135/82 Pulse Oximetry 94 Oxygen Delivery 07/23/24 20:40 07/24/24 00:00 07/24/24 00:33 Temperature 98.1 F 97.1 F L Pulse Rate 89 92 102 H Respiratory Rate 14 16 Blood Pressure 133/83 130/59 L Pulse Oximetry 95 95 Oxygen Delivery 07/24/24 04:00 07/24/24 05:00 07/24/24 08:00 Temperature 97.6 F Pulse Rate 79 78 Respiratory Rate 14 Blood Pressure 137/84 Pulse Oximetry 95 94 Oxygen Delivery Room Air 07/24/24 08:00 07/24/24 09:00 07/24/24 13:00 Temperature 97.3 F L 96.9 F L Pulse Rate 87 89 91 Respiratory Rate 18 18 Blood Pressure 135/84 141/81 H Pulse Oximetry 96 94 Oxygen Delivery Intake/Output Intake/Output: Intake & Output 07/21/24 07/22/24 07/23/24 07/24/24 23:59 23:59 23:59 23:59 Intake Total 2320 1940 1550 720 Output Total 068 913 6280 Balance 2097 1811 342 720 Meds/Results Medications: Active Medications Generic Name Dose Route Start Last Admin Trade Name Freq PRN Reason Stop Dose Admin Acetaminophen 500 mg 07/17/24 20:26 06/03/25 20:39 Acetaminophen 500 Mg Tablet PO 500 mg Q6H PRN Administration Pain Rated 1-3 Bupropion HCl 150 mg 07/20/24 09:00 07/24/24 09:25 Bupropion Hcl Xl (24 Hr) 150 Mg Tabcr PO 150 mg QAM JAVIER Administration Diphenhydramine HCl 25 mg 07/21/24 15:28 Diphenhydramine Hcl Inj 50 Mg/Ml Vial IV PUSH Q4H PRN Itching Enoxaparin Sodium 40 mg 07/18/24 09:00 07/24/24 09:25 Enoxaparin 40 Mg/0.4 Ml Syringe SUB-Q 40 mg DAILY JAVIER Administration Ibuprofen 800 mg in 200 mls @ 400 mls/hr 07/17/24 20:26 Caldolor 800 Mg/200 Ml IVPB Q6H PRN Breakthrough Pain Rated 1-3 or NPO Metronidazole 500 mg in 100 mls @ 100 mls/hr 07/17/24 22:00 07/24/24 12:59 Flagyl 500 Mg/Iso Soln 100 Ml IVPB 100 mls/hr Q8HR JAVIER Administration Levofloxacin/Dextrose 750 mg in 150 mls @ 100 mls/hr 07/21/24 16:00 07/23/24 16:20 Levaquin 750 Mg/D5w 150 Ml IVPB 100 mls/hr Q24H JAVIER Administration Losartan Potassium 25 mg 07/18/24 09:00 07/24/24 09:25 Losartan Potassium 25 Mg Tablet PO 25 mg DAILY JAVIER Administration Morphine Sulfate 2 mg 07/17/24 20:26 Morphine Sulfate (*Crx) 2 Mg/Ml Inj IV PUSH Q2H PRN Breakthrough Pain Rated 4-6 or NPO Morphine Sulfate 4 mg 07/17/24 20:26 07/19/24 20:07 Morphine Sulfate (*Crx) 4 Mg/Ml Inj IV PUSH 4 mg Q2H PRN Administration Breakthrough Pain Rated 7-10 or NPO Naloxone HCl 0.1 mg 07/17/24 20:26 Naloxone Hcl 0.4 Mg/Ml Vial IV PUSH Q2M PRN Opiate Reversal Ondansetron HCl 4 mg 07/17/24 20:26 Ondansetron Inj 4 Mg/2 Ml Vial IV PUSH Q4H PRN Nausea And Vomiting Oxycodone/Acetaminophen 1 tablet 07/17/24 20:26 07/20/24 21:47 Oxycodone/Acetaminophen (*Crx) 5-325 Mg Tablet PO 1 tablet Q4H PRN Administration Pain Rated 4-6 Pantoprazole Sodium 40 mg 07/18/24 09:00 07/24/24 09:25 Pantoprazole 40 Mg Tablet PO 40 mg QAM JAVIER Administration Polyethylene Glycol 17 gm 07/21/24 09:00 07/24/24 09:25 Polyethylene Glycol 3350 17 Gm Powd.Pack PO 17 gm BID JAVIER Administration Senna/Docusate Sodium 2 tab 07/21/24 21:00 07/23/24 20:24 Senna/Docusate Sodium Tablet PO Not Given HS JAVIER Sertraline HCl 100 mg 07/18/24 09:00 07/24/24 09:25 Sertraline Hcl 50 Mg Tablet PO 100 mg DAILY JAVIER Administration Tamsulosin HCl 0.4 mg 07/17/24 21:25 07/23/24 20:23 Tamsulosin Hcl 0.4 Mg Capsule PO 0.4 mg HS JAVIER Administration Radiology Results: ITS Impressions Abdomen X-Ray 07/21/24 10:48 Impression: 1: Nonspecific bowel gas pattern with large amount of retained gas throughout the small bowel and colon, likely ileus. 2: Small right pleural effusion. Cholangiogram 07/22/24 09:48 IMPRESSION: 1. Cholelithiasis in the body and neck of the gallbladder with patent cystic and common bile ducts. No extraluminal contrast extravasation. Retrograde Pyelogram 07/22/24 12:18 IMPRESSION: 1. Fluoroscopy utilized during left internal ureteral stent placement with loops formed in the left renal pelvis. See procedure note for further detail.. Venous Doppler Study 07/23/24 11:55 IMPRESSION: 1. No deep venous thrombosis in either lower limb. Abdomen/Pelvis CT 07/23/24 12:29 Impression: Increasing right upper quadrant pneumoperitoneum and fluid posterior to the liver, somewhat loculated in overall appearance. Correlate for loculated collection and iatrogenic air, or developing abscess, versus any possibility of bowel perforation, though the latter is felt to be less likely. Percutaneous catheter in the right upper quadrant with tip in the right upper quadrant, but not within the gallbladder. Probable contracted gallbladder with gallstones. Left ureteral stent with stable nonobstructing left lower pole renal stone. No hydronephrosis. No left ureteral stone at this time. [id number] right pleural effusion with right lower and middle lobe atelectatic change. Correlate clinically for pneumonia. Minimal left pleural effusion. Enlarged prostate gland. Labs Labs: Laboratory Results - last 24 hr 07/24/24 06:24 WBC 18.7 H RBC 4.07 L Hgb 11.7 L Hct 37.2 L MCV 91.4 MCH 28.7 MCHC 31.5 L RDW 14.0 Plt Count 359 MPV 9.6 Sodium 134 L Potassium 3.6 Chloride 94 L Carbon Dioxide 30 Anion Gap 10 BUN 10 Creatinine 0.76 Estim Creat Clear Calc 143 Estimated GFR > 60 Glucose 88 Calcium 8.6 Magnesium 1.7
[2024-07-24] MEDS: levoFLOXacin 750 MG/D5W 150 ML 750 MG/150 ML BAG 100 MG IVPB (15:39)
--- NOTE | 2024-07-24 15:50 | P.PNIM_ITS ---
Progress Note: A&P Assessment and Plan (1) Acute calculous cholecystitis: Code(s): K80.00 - Calculus of gallbladder with acute cholecystitis without obstruction Status: Acute Assessment and Plan: Postoperative day 1 status post adhesiolysis and cholecystostomy tube and Ryland drain insertion. Wound care, pain control, and DVT prophylaxis deferred to primary service. s/p ceftriaxone and metronidazole, now on ZOsyn failed cholecystectomy (2) Hypertension: Qualifiers: Hypertension type: unspecified Qualified Code(s): I10 - Essential (primary) hypertension Code(s): I10 - Essential (primary) hypertension Status: Chronic Assessment and Plan: Blood pressures were reviewed and they have been stable. Continue losartan 25 mg and monitor daily. (3) Benign prostatic hyperplasia: Code(s): N40.0 - Benign prostatic hyperplasia without lower urinary tract symptoms Status: Acute Assessment and Plan: Bladder scan p.r.n. Continue tamsulosin 0.4 mg daily. (4) Gastroesophageal reflux disease: Code(s): K21.9 - Gastro-esophageal reflux disease without esophagitis Status: Acute Assessment and Plan: No acute issues, continue PPI. (5) Depression with anxiety: Code(s): F41.8 - Other specified anxiety disorders Status: Acute Assessment and Plan: No acute issues, continue sertraline and bupropion. (6) Obstructive sleep apnea: Code(s): G47.33 - Obstructive sleep apnea (adult) (pediatric) Status: Chronic Assessment and Plan: CPAP will be provided for the patient to use while hospitalized if in fact he uses it at home. Plan patient with abdominal pain s/p attempted laparoscopic cholecystectomy, laparoscopic placement of cholecystostomy tube POD #7, was seen by urologist on 07/22 and had cystoscopy, left retrograde, left stent placement 4.8 [place] contour, patient seen by his surgeon, and TEETEE drains was removed today recommended to conitnue IV abx, on 06/22 patient c/o of b/l extremities edma, calf were swollen to further evaluate had dopplor to r/o DVT, which was negative for DVT, started patient on furosemide and diuresed the patient and monitor. and today patient lower extremities not as swollen, patient white counts are steadily rising and seen by surgery service does not suspect any intraabdominal infection and recommended to continue IV abx, patient remains clinical stable, will continue to monitor, encourage PT/OT. Erythema Patient has erythema on extremities no pruritus Questionable medication allergies Will recommend switching Zosyn to another antibiotics (Levaquin and Meropenem) monitor DVT prophylaxis on Sq Lovenox I appreciate the opportunity to participate in the care of this patient Subjective Date/time seen: 07/24/24 15:50 Interval history: Comfortable at bedside However complained redness in extremities patient with abdominal pain s/p attempted laparoscopic cholecystectomy, laparoscopic placement of cholecystostomy tube POD #7, was seen by urologist on 07/22 and had cystoscopy, left retrograde, left stent placement 4.8 [place] contour, patient seen by his surgeon, and TEETEE drains was removed today recommended to conitnue IV abx, on 06/22 patient c/o of b/l extremities edma, calf were swollen to further evaluate had dopplor to r/o DVT, which was negative for DVT, started patient on furosemide and diuresed the patient and monitor. and today patient lower extremities not as swollen, patient white counts are steadily rising and seen by surgery service does not suspect any intraabdominal infection and recommended to continue IV abx, patient remains clinical stable, will continue to monitor, encourage PT/OT. Review of Systems Review of Systems: 12 systems were reviewed and are negativ e except for as per HPI. Exam Narrative: Morbidly obese Patient is comfortable, NAD HEENT: eyes are clear and none icteric LUNGS:CTA HEART: RR S1S2 ABD: BS+, Soft and nontender Lower extremities: no edema SKIN: nonjaundiced Neuro: grossly intact. Objective Data Vital Signs Vital Signs: Vital Signs - 24 hr 07/23/24 16:00 07/23/24 17:00 07/23/24 20:00 Temperature 36.6 C Pulse Rate 93 85 93 Respiratory Rate 18 Blood Pressure 135/82 Pulse Oximetry 94 Oxygen Delivery 07/23/24 20:40 07/24/24 00:00 07/24/24 00:33 Temperature 36.7 C 36.2 C L Pulse Rate 89 92 102 H Respiratory Rate 14 16 Blood Pressure 133/83 130/59 L Pulse Oximetry 95 95 Oxygen Delivery 07/24/24 04:00 07/24/24 05:00 07/24/24 08:00 Temperature 36.4 C Pulse Rate 79 78 Respiratory Rate 14 Blood Pressure 137/84 Pulse Oximetry 95 94 Oxygen Delivery Room Air 07/24/24 08:00 07/24/24 09:00 07/24/24 13:00 Temperature 36.3 C L 36.1 C L Pulse Rate 87 89 91 Respiratory Rate 18 18 Blood Pressure 135/84 141/81 H Pulse Oximetry 96 94 Oxygen Delivery Intake/Output Intake/Output: Intake & Output 07/21/24 07/22/24 07/23/24 07/24/24 23:59 23:59 23:59 23:59 Intake Total 2320 1940 1700 720 Output Total 025 573 6418 Balance 2097 1817 644 720 Meds/Results Medications: Active Medications Generic Name Dose Route Start Last Admin Trade Name Freq PRN Reason Stop Dose Admin Acetaminophen 500 mg 07/17/24 20:26 07/22/24 20:39 Acetaminophen 500 Mg Tablet PO 500 mg Q6H PRN Administration Pain Rated 1-3 Bupropion HCl 150 mg 07/20/24 09:00 07/24/24 09:25 Bupropion Hcl Xl (24 Hr) 150 Mg Tabcr PO 150 mg QAM JAVIER Administration Diphenhydramine HCl 25 mg 07/21/24 15:28 Diphenhydramine Hcl Inj 50 Mg/Ml Vial IV PUSH Q4H PRN Itching Enoxaparin Sodium 40 mg 07/18/24 09:00 07/24/24 09:25 Enoxaparin 40 Mg/0.4 Ml Syringe SUB-Q 40 mg DAILY JAVIER Administration Ibuprofen 800 mg in 200 mls @ 400 mls/hr 07/17/24 20:26 Caldolor 800 Mg/200 Ml IVPB Q6H PRN Breakthrough Pain Rated 1-3 or NPO Metronidazole 500 mg in 100 mls @ 100 mls/hr 07/17/24 22:00 07/24/24 12:59 Flagyl 500 Mg/Iso Soln 100 Ml IVPB 100 mls/hr Q8HR JAVIER Administration Levofloxacin/Dextrose 750 mg in 150 mls @ 100 mls/hr 07/21/24 16:00 07/24/24 15:39 Levaquin 750 Mg/D5w 150 Ml IVPB 100 mls/hr Q24H JAVIER Administration Losartan Potassium 25 mg 07/18/24 09:00 07/24/24 09:25 Losartan Potassium 25 Mg Tablet PO 25 mg DAILY JAVIER Administration Morphine Sulfate 2 mg 07/17/24 20:26 Morphine Sulfate (*Crx) 2 Mg/Ml Inj IV PUSH Q2H PRN Breakthrough Pain Rated 4-6 or NPO Morphine Sulfate 4 mg 07/17/24 20:26 07/19/24 20:07 Morphine Sulfate (*Crx) 4 Mg/Ml Inj IV PUSH 4 mg Q2H PRN Administration Breakthrough Pain Rated 7-10 or NPO Naloxone HCl 0.1 mg 07/17/24 20:26 Naloxone Hcl 0.4 Mg/Ml Vial IV PUSH Q2M PRN Opiate Reversal Ondansetron HCl 4 mg 07/17/24 20:26 Ondansetron Inj 4 Mg/2 Ml Vial IV PUSH Q4H PRN Nausea And Vomiting Oxycodone/Acetaminophen 1 tablet 07/17/24 20:26 07/20/24 21:47 Oxycodone/Acetaminophen (*Crx) 5-325 Mg Tablet PO 1 tablet Q4H PRN Administration Pain Rated 4-6 Pantoprazole Sodium 40 mg 07/18/24 09:00 07/24/24 09:25 Pantoprazole 40 Mg Tablet PO 40 mg QAM JAVIER Administration Polyethylene Glycol 17 gm 07/21/24 09:00 07/24/24 15:40 Polyethylene Glycol 3350 17 Gm Powd.Pack PO Not Given BID JAVIER Senna/Docusate Sodium 2 tab 07/21/24 21:00 07/23/24 20:24 Senna/Docusate Sodium Tablet PO Not Given HS JAVIER Sertraline HCl 100 mg 07/18/24 09:00 07/24/24 09:25 Sertraline Hcl 50 Mg Tablet PO 100 mg DAILY JAVIER Administration Tamsulosin HCl 0.4 mg 07/17/24 21:25 07/23/24 20:23 Tamsulosin Hcl 0.4 Mg Capsule PO 0.4 mg HS JAVIER Administration Radiology Results: ITS Impressions Abdomen X-Ray 07/21/24 10:48 Impression: 1: Nonspecific bowel gas pattern with large amount of retained gas throughout the small bowel and colon, likely ileus. 2: Small right pleural effusion. Cholangiogram 07/22/24 09:48 IMPRESSION: 1. Cholelithiasis in the body and neck of the gallbladder with patent cystic and common bile ducts. No extraluminal contrast extravasation. Retrograde Pyelogram 07/22/24 12:18 IMPRESSION: 1. Fluoroscopy utilized during left internal ureteral stent placement with loops formed in the left renal pelvis. See procedure note for further detail.. Venous Doppler Study 07/23/24 11:55 IMPRESSION: 1. No deep venous thrombosis in either lower limb. Abdomen/Pelvis CT 07/23/24 12:29 Impression: Increasing right upper quadrant pneumoperitoneum and fluid posterior to the liver, somewhat loculated in overall appearance. Correlate for loculated collection and iatrogenic air, or developing abscess, versus any possibility of bowel perforation, though the latter is felt to be less likely. Percutaneous catheter in the right upper quadrant with tip in the right upper quadrant, but not within the gallbladder. Probable contracted gallbladder with gallstones. Left ureteral stent with stable nonobstructing left lower pole renal stone. No hydronephrosis. No left ureteral stone at this time. [id number] right pleural effusion with right lower and middle lobe atelectatic change. Correlate clinically for pneumonia. Minimal left pleural effusion. Enlarged prostate gland. Labs Labs: Laboratory Results - last 24 hr 07/24/24 06:24 WBC 18.7 H RBC 4.07 L Hgb 11.7 L Hct 37.2 L MCV 91.4 MCH 28.7 MCHC 31.5 L RDW 14.0 Plt Count 359 MPV 9.6 Sodium 134 L Potassium 3.6 Chloride 94 L Carbon Dioxide 30 Anion Gap 10 BUN 10 Creatinine 0.76 Estim Creat Clear Calc 143 Estimated GFR > 60 Glucose 88 Calcium 8.6 Magnesium 1.7
[2024-07-24] MEDS: TAMSULOSIN HCL 0.4 MG CAPSULE PO (20:31)
[2024-07-25] VITALS (10 sets, daily range): BP systolic 118–138; BP diastolic 79–90; PULSE 83–96; RESP 16–20; TEMP 36.6–37.2; O2SAT 94–96
[2024-07-25] MEDS: metroNIDAZOLE 500 MG/ISO 100ML 500 MG/100 ML BAG 100 MG IVPB ×2 (05:04→15:20)
[2024-07-25 07:01] LABS: Basophils Absolute Auto 0.1 K/mm3 (0.0-0.1); Basophils Percent Auto 0.5 % (0.2-1.2); Eosinophils Absolute Auto 0.2 K/mm3 (0-0.3); Eosinophils Percent Auto 1.5 % (0-4.4); Hematocrit 35.2 % (42.0-52.0); Hemoglobin 11.4 g/dL (14.0-18.0); Immature Granulocyte Absolute 0.92 K/mm3 (0.00-0.031); Immature Granulocyte Percent A 5.8 % (0-0.5); Lymphocytes Absolute Auto 1.15 K/mm3 (0.9-3.2); Lymphocytes Percent Auto 7.3 % (18.3-44.2); Mean Corpuscular HGB Conc 32.4 g/dl (32-36); Mean Corpuscular Hemoglobin 28.9 pg (26-34); Mean Corpuscular Volume 89.1 fl (80-100); Mean Platelet Volume 9.6 fl (7.4-10.4); Monocytes Absolute Auto 0.9 K/mm3 (0.1-0.6); Monocytes Percent Auto 5.9 % (2.6-8.5); Neutrophils Absolute Auto 12.5 K/mm3 (1.3-6.7); Platelet Count Result 384 k/mm3 (150-375); Red Blood Count 3.95 M/mm3 (4.6-6.20); Red Cell Distribution Width 13.7 % (11.5-14.5); White Blood Count 15.8 K/mm3 (4.5-10.0)
[2024-07-25 07:22] LABS: Alanine Aminotransferase 14 U/L (6-50); Albumin Level 2.7 g/dL (3.5-5.1); Alkaline Phosphatase 97 U/L (38-126); Anion Gap 9 mmol/L (4-12); Aspartate Amino Transferase 22 U/L (17-59); Bilirubin,Total 0.4 mg/dL (0.2-1.3); Blood Urea Nitrogen 7 mg/dL (9-20); Carbon Dioxide 27 mmol/L (22-30); Chloride 96 mmol/L (98-107); Estimated CRCL calculation 157 ml/min; Estimated Glomerular Filt Rate > 60; Glucose 85 mg/dL (65-110); Magnesium 1.6 mg/dL (1.6-2.3); Sodium 132 mmol/L (137-145); Total Protein 5.7 g/dL (6.3-8.2)
[2024-07-25] MEDS: ENOXAPARIN 40 MG/0.4 ML SYRINGE SUB-Q (08:37)
[2024-07-25] MEDS: buPROPion HCL XL (24 HR) 150 MG TABCR PO (08:37)
[2024-07-25] MEDS: SERTRALINE HCL 50 MG TABLET 100 MG PO (08:37)
[2024-07-25] MEDS: PANTOPRAZOLE 40 MG TABLET PO (08:37)
[2024-07-25] MEDS: LOSARTAN POTASSIUM 25 MG TABLET PO (08:37)
[2024-07-25 08:39] LABS: Potassium 2.8 mmol/L (3.4-5.0)
[2024-07-25] MEDS: MAGNESIUM SULF 2 GM/WATER 50ML 2 GM/50 ML BAG IVPB (09:15)
[2024-07-25] MEDS: POTASSIUM CHLORIDE 20 MEQ PACKET (FOR LIQUID) 40 MEQ PO (09:15)
--- NOTE | 2024-07-25 11:07 | P.PNGS_ITS ---
Progress Note: A&P Assessment and Plan (1) S/P laparoscopy with lysis of adhesions: Code(s): Z98.890 - Other specified postprocedural states Status: Acute Assessment and Plan: * Postop day 8 following difficult attempted laparoscopic cholecystectomy with placement of cholecystostomy tube. TEETEE drains removed two days ago. Cholecystostomy tube with minimal output. No leak on recent contrast study. * He is tolerating a low fat diet and bowels are moving. * Continue to monitor cholecystostomy tube. Sspoke with nurse who will exchange fisher for leg bag upon discharge. He should follow up with Dr. Hernandez outpatient in 1-2 weeks. * WBC 15.8 (down from 18.7). He continues on IV Levaquin and Flagyl. He is afebrile with no abdominal pain or tenderness. His abd exam is completely benign. CT scan abd/pelvis ordered by Urology yesterday suggested an increasing RUQ pneumoperitoneum and fluid posterior to the liver, which could be iatrogenic air/abscess/bowel perforation. I reviewed the CT scan with the Radiologist today and compared this with his CT scan on 07/19. He had a large volume of free air on the CT from 07/19 but it was more anterior in the mid abdomen. The volume of pneumoperitoneum did not increase from the CT on 07/19, possibly actually decreased, but appears to have likely migrated superiorly into the RUQ. The pneumoperitoneum is still most likely postoperative findings, rather than a bowel perforation. There is a very small amount of fluid posteriorly behind the liver, but this is small enough it wouldn't indicate percutaneous drainage at this point and would be difficult to access percutaneously. In light of his leukocytosis, will continue IV antibiotics and repeat labs tomorrow, but there is no obvious surgical reason for his elevated WBC count at this time. Ok for discharge from surgical standpoint, once medical problems are resolved. * Potassium down to 2.8 today. Being treated with oral and IV potassium chloride, as well as magnesium. Hospitalist team managing this issue. Subjective Subjective Date/Time Seen: 07/25/24 11:07 Interval history: Critical K+ of 2.8 this morning. Currently receiving potassium chloride IV. Given oral potassium chloride and oral magnesium sulfate this morning. Patient tolerating a regular diet, regular bowel movements. No N/V. WBC 15.8, trending down. Patient mentions that he is going to leave AMA if he is not discharged by 6:00. Explained to him that we are monitoring his potassium, as it was critically low. Exam GI: Inspection: no abdominal wall ecchymosis, non-distended, incision (Healing well, TEETEE drains with serous fluid, decreasing output), obesity, scar and other (Cholecystostomy tube with dark green bile output that is minimal.) Auscultation: normal bowel sounds Other: Abdominal port site incisions are healing well with glue intact, no erythema or drainage. Two wounds where the TEETEE drains were removed two days ago had a dry/clean dressing in place, no erythema or purulent drainage. Cholecystostomy tube to gravity with minimal output in bag, skin around the drain appears healthy with no erythema or drainage. Objective Data Vital Signs Vital Signs: Vital Signs - 24 hr 07/24/24 12:00 07/24/24 13:00 07/24/24 16:00 Temperature 96.9 F L Pulse Rate 90 91 91 Respiratory Rate 18 Blood Pressure 141/81 H Pulse Oximetry 94 Oxygen Delivery 07/24/24 17:00 07/24/24 20:00 07/24/24 20:00 Temperature 98.3 F Pulse Rate 82 93 Respiratory Rate 18 Blood Pressure 148/92 H Pulse Oximetry 97 Oxygen Delivery Room Air 07/24/24 21:00 07/25/24 00:00 07/25/24 01:00 Temperature 97.7 F 98.2 F Pulse Rate 94 91 88 Respiratory Rate 24 H 16 Blood Pressure 139/83 118/80 Pulse Oximetry 92 95 Oxygen Delivery 07/25/24 04:00 07/25/24 05:00 07/25/24 07:59 Temperature 97.9 F 99.0 F Pulse Rate 83 87 87 Respiratory Rate 20 16 Blood Pressure 135/79 138/89 Pulse Oximetry 94 95 Oxygen Delivery Intake/Output Intake/Output: Intake & Output 07/22/24 07/23/24 07/24/24 07/25/24 23:59 23:59 23:59 23:59 Intake Total 1940 1700 1070 890 Output Total 123 1056 Balance 9724 992 9448 890 Meds/Results Medications: Active Medications Generic Name Dose Route Start Last Admin Trade Name Freq PRN Reason Stop Dose Admin Acetaminophen 500 mg 07/17/24 20:26 07/22/24 20:39 Acetaminophen 500 Mg Tablet PO 500 mg Q6H PRN Administration Pain Rated 1-3 Bupropion HCl 150 mg 07/20/24 09:00 07/25/24 08:37 Bupropion Hcl Xl (24 Hr) 150 Mg Tabcr PO 150 mg QAM JAVIER Administration Diphenhydramine HCl 25 mg 07/21/24 15:28 Diphenhydramine Hcl Inj 50 Mg/Ml Vial IV PUSH Q4H PRN Itching Enoxaparin Sodium 40 mg 07/18/24 09:00 07/25/24 08:37 Enoxaparin 40 Mg/0.4 Ml Syringe SUB-Q 40 mg DAILY JAVIER Administration Ibuprofen 800 mg in 200 mls @ 400 mls/hr 07/17/24 20:26 Caldolor 800 Mg/200 Ml IVPB Q6H PRN Breakthrough Pain Rated 1-3 or NPO Metronidazole 500 mg in 100 mls @ 100 mls/hr 07/17/24 22:00 07/25/24 05:04 Flagyl 500 Mg/Iso Soln 100 Ml IVPB 100 mls/hr Q8HR JAVIER Administration Levofloxacin/Dextrose 750 mg in 150 mls @ 100 mls/hr 07/21/24 16:00 07/24/24 15:39 Levaquin 750 Mg/D5w 150 Ml IVPB 100 mls/hr Q24H JAVIER Administration Potassium Chloride 40 meq/ 520 mls @ 130 mls/hr 07/25/24 08:48 Sodium Chloride IVPB 07/25/24 12:47 ONCE ONE Losartan Potassium 25 mg 07/18/24 09:00 07/25/24 08:37 Losartan Potassium 25 Mg Tablet PO 25 mg DAILY JAVIER Administration Morphine Sulfate 2 mg 07/17/24 20:26 Morphine Sulfate (*Crx) 2 Mg/Ml Inj IV PUSH Q2H PRN Breakthrough Pain Rated 4-6 or NPO Morphine Sulfate 4 mg 07/17/24 20:26 07/19/24 20:07 Morphine Sulfate (*Crx) 4 Mg/Ml Inj IV PUSH 4 mg Q2H PRN Administration Breakthrough Pain Rated 7-10 or NPO Naloxone HCl 0.1 mg 07/17/24 20:26 Naloxone Hcl 0.4 Mg/Ml Vial IV PUSH Q2M PRN Opiate Reversal Ondansetron HCl 4 mg 07/17/24 20:26 Ondansetron Inj 4 Mg/2 Ml Vial IV PUSH Q4H PRN Nausea And Vomiting Oxycodone/Acetaminophen 1 tablet 07/17/24 20:26 07/20/24 21:47 Oxycodone/Acetaminophen (*Crx) 5-325 Mg Tablet PO 1 tablet Q4H PRN Administration Pain Rated 4-6 Pantoprazole Sodium 40 mg 07/18/24 09:00 07/25/24 08:37 Pantoprazole 40 Mg Tablet PO 40 mg QAM JAVIER Administration Polyethylene Glycol 17 gm 07/21/24 09:00 07/25/24 08:37 Polyethylene Glycol 3350 17 Gm Powd.Pack PO Not Given BID JAVIER Senna/Docusate Sodium 2 tab 07/21/24 21:00 07/24/24 21:00 Senna/Docusate Sodium Tablet PO Not Given HS JAVIER Sertraline HCl 100 mg 07/18/24 09:00 07/25/24 08:37 Sertraline Hcl 50 Mg Tablet PO 100 mg DAILY JAVIER Administration Tamsulosin HCl 0.4 mg 07/17/24 21:25 07/24/24 20:31 Tamsulosin Hcl 0.4 Mg Capsule PO 0.4 mg HS JAVIER Administration Radiology Results: ITS Impressions Abdomen X-Ray 07/21/24 10:48 Impression: 1: Nonspecific bowel gas pattern with large amount of retained gas throughout the small bowel and colon, likely ileus. 2: Small right pleural effusion. Cholangiogram 07/22/24 09:48 IMPRESSION: 1. Cholelithiasis in the body and neck of the gallbladder with patent cystic and common bile ducts. No extraluminal contrast extravasation. Retrograde Pyelogram 07/22/24 12:18 IMPRESSION: 1. Fluoroscopy utilized during left internal ureteral stent placement with loops formed in the left renal pelvis. See procedure note for further detail.. Venous Doppler Study 07/23/24 11:55 IMPRESSION: 1. No deep venous thrombosis in either lower limb. Abdomen/Pelvis CT 07/23/24 12:29 Impression: Increasing right upper quadrant pneumoperitoneum and fluid posterior to the liver, somewhat loculated in overall appearance. Correlate for loculated collection and iatrogenic air, or developing abscess, versus any possibility of bowel perforation, though the latter is felt to be less likely. Percutaneous catheter in the right upper quadrant with tip in the right upper quadrant, but not within the gallbladder. Probable contracted gallbladder with gallstones. Left ureteral stent with stable nonobstructing left lower pole renal stone. No hydronephrosis. No left ureteral stone at this time. [id number] right pleural effusion with right lower and middle lobe atelectatic change. Correlate clinically for pneumonia. Minimal left pleural effusion. Enlarged prostate gland. Labs Labs: Laboratory Results - last 24 hr 07/25/24 06:20 WBC 15.8 H RBC 3.95 L Hgb 11.4 L Hct 35.2 L MCV 89.1 MCH 28.9 MCHC 32.4 RDW 13.7 Plt Count 384 H MPV 9.6 Immature Gran % (Auto) 5.8 H Neut % (Auto) 79.0 H Lymph % (Auto) 7.3 L [place] % (Auto) 5.9 Eos % (Auto) 1.5 Baso % (Auto) 0.5 Lymph # (Auto) 1.15 [place] # (Auto) 0.9 H Eos # (Auto) 0.2 Baso # (Auto) 0.1 Abs Immat Gran (auto) 0.92 H Absolute Neuts (auto) 12.5 H Absolute Nucleated RBC 0.000 Nucleated RBC % 0.0 Sodium 132 L Potassium 2.8 L* Chloride 96 L Carbon Dioxide 27 Anion Gap 9 BUN 7 L Creatinine 0.69 L Estim Creat Clear Calc 157 Estimated GFR > 60 Glucose 85 Calcium 8.0 L Magnesium 1.6 Total Bilirubin 0.4 AST 22 ALT 14 Alkaline Phosphatase 97 Total Protein 5.7 L Albumin 2.7 L
[2024-07-25] MEDS: POTASSIUM CHLORIDE INJ 40 MEQ in SODIUM CHLORIDE 0.9% IV 500 ML 130 MEQ IVPB (11:22)
--- NOTE | 2024-07-25 11:54 | WPDUROPN2 ---
Progress Note: A&P Assessment and Plan (1) Ureteral stone: Code(s): N20.1 - Calculus of ureter Status: Acute (2) Right renal stone: Code(s): N20.0 - Calculus of kidney Status: Acute (3) Hydronephrosis: Qualifiers: Hydronephrosis type: unspecified Qualified Code(s): N13.30 - Unspecified hydronephrosis Code(s): N13.30 - Unspecified hydronephrosis Status: Acute Plan 64y old male with left ureteral stone s/p cystoscopy, left retrograde, left stent placement 07/22/2024. He is tolerating it well. No complaints and states he feels good. -repeat ct reveals Left ureteral stent with stable nonobstructing left lower pole renal stone. No hydronephrosis. No left ureteral stone at this time. 07/23/2024 -urine culture shows no growth -follow up as outpatient for ureteroscopy with stone extraction Subjective Subjective Date/Time Seen: 07/25/24 11:54 Interval history: Comfortable at bedside patient reports swelling has improved. patient states he is feeling good and hoping to leave today. patient with abdominal pain s/p attempted laparoscopic cholecystectomy, laparoscopic placement of cholecystostomy tube POD #7. Patient had cystoscopy, left retrograde, left stent placement 4.8 [place] contour on 07/22 Review of Systems Review of Systems: All systems reviewed & are unremarkable except as noted in HPI and below Constitutional: Constitutional: Reports as per HPI, Reports no additional constitutional complaints and Denies chills Eyes: Eyes: Reports as per HPI and Reports no additional eye complaints ENT: Reports system reviewed and no additional complaints, except as documented, Reports as per HPI and Reports Normal hearing present Cardiovascular: Cardiovascular: Reports as per HPI, Denies chest pain and Denies dyspnea Respiratory: Respiratory: Reports as per HPI and Denies dyspnea Gastrointestinal: Gastrointestinal: Reports as per HPI Genitourinary: Genitourinary: Reports no additional male genitourinary complaints, Reports as per HPI, Denies hematuria, Denies dysuria and Reports flank pain Musculoskeletal: Musculoskeletal: Reports no additional musculoskeletal complaints Integumentary/Breasts: Skin/Breast: Reports system reviewed and no additional complaints, except as docu Neurologic: Reports Normal hearing present Psychiatric: Psychiatric: Reports no additional psychiatric complaints Exam Const: General: cooperative, comfortable, no acute distress, well developed and obese Nutritional Appearance: obese Orientation/consciousness: patient oriented x3 Limitations: physical limitations (Due to hospitalize status) HENMT: Head: normal to inspection Mouth: Yes moist mucous membranes abnormal Eyes: General: appearance normal, both eyes and all related structures EOM: EOMs intact bilaterally Neck: Neck: normal visual inspection, full ROM and supple Resp: Effort & Inspection: normal respiratory effort and able to speak in complete sentences Auscultation: no wheezes Cardio: Rate: regular rate GI: Other: Cholecystostomy tube in place : General: Yes no CVA tenderness Other: no CVA TTP Back/Spine/Pelvis: Back: no CVA tenderness Skin: General skin exam: normal color and no rashes or lesions noted Neuro: General: patient oriented x3 and moves all extremities Cranial nerves: Yes Normal hearing present Extrem: General: normal to inspection and full ROM Other: ble edema 4+ Psych: Appearance: grossly normal Speech and movement: Normal speech and movement present Objective Data Vital Signs Vital Signs: Vital Signs - 24 hr 07/24/24 12:00 07/24/24 13:00 07/24/24 16:00 Temperature 96.9 F L Pulse Rate 90 91 91 Respiratory Rate 18 Blood Pressure 141/81 H Pulse Oximetry 94 Oxygen Delivery 07/24/24 17:00 07/24/24 20:00 07/24/24 20:00 Temperature 98.3 F Pulse Rate 82 93 Respiratory Rate 18 Blood Pressure 148/92 H Pulse Oximetry 97 Oxygen Delivery Room Air 07/24/24 21:00 07/25/24 00:00 07/25/24 01:00 Temperature 97.7 F 98.2 F Pulse Rate 94 91 88 Respiratory Rate 24 H 16 Blood Pressure 139/83 118/80 Pulse Oximetry 92 95 Oxygen Delivery 07/25/24 04:00 07/25/24 05:00 07/25/24 07:59 Temperature 97.9 F 99.0 F Pulse Rate 83 87 87 Respiratory Rate 20 16 Blood Pressure 135/79 138/89 Pulse Oximetry 94 95 Oxygen Delivery Intake/Output Intake/Output: Intake & Output 07/22/24 07/23/24 07/24/24 07/25/24 23:59 23:59 23:59 23:59 Intake Total 1940 1700 1070 1040 Output Total 123 1056 Balance 6401 134 0571 1040 Meds/Results Medications: Active Medications Generic Name Dose Route Start Last Admin Trade Name Freq PRN Reason Stop Dose Admin Acetaminophen 500 mg 07/17/24 20:26 07/22/24 20:39 Acetaminophen 500 Mg Tablet PO 500 mg Q6H PRN Administration Pain Rated 1-3 Bupropion HCl 150 mg 07/20/24 09:00 07/25/24 08:37 Bupropion Hcl Xl (24 Hr) 150 Mg Tabcr PO 150 mg QAM JAVIER Administration Diphenhydramine HCl 25 mg 07/21/24 15:28 Diphenhydramine Hcl Inj 50 Mg/Ml Vial IV PUSH Q4H PRN Itching Enoxaparin Sodium 40 mg 07/18/24 09:00 07/25/24 08:37 Enoxaparin 40 Mg/0.4 Ml Syringe SUB-Q 40 mg DAILY JAVIER Administration Ibuprofen 800 mg in 200 mls @ 400 mls/hr 07/17/24 20:26 Caldolor 800 Mg/200 Ml IVPB Q6H PRN Breakthrough Pain Rated 1-3 or NPO Metronidazole 500 mg in 100 mls @ 100 mls/hr 07/17/24 22:00 07/25/24 06:04 Flagyl 500 Mg/Iso Soln 100 Ml IVPB Infused Q8HR JAVIER Infusion Levofloxacin/Dextrose 750 mg in 150 mls @ 100 mls/hr 07/21/24 16:00 07/24/24 15:39 Levaquin 750 Mg/D5w 150 Ml IVPB 100 mls/hr Q24H JAVIER Administration Potassium Chloride 40 meq/ 520 mls @ 130 mls/hr 07/25/24 08:48 07/25/24 11:22 Sodium Chloride IVPB 07/25/24 12:47 130 mls/hr ONCE ONE Administration Losartan Potassium 25 mg 07/18/24 09:00 07/25/24 08:37 Losartan Potassium 25 Mg Tablet PO 25 mg DAILY JAVIER Administration Morphine Sulfate 2 mg 07/17/24 20:26 Morphine Sulfate (*Crx) 2 Mg/Ml Inj IV PUSH Q2H PRN Breakthrough Pain Rated 4-6 or NPO Morphine Sulfate 4 mg 07/17/24 20:26 07/19/24 20:07 Morphine Sulfate (*Crx) 4 Mg/Ml Inj IV PUSH 4 mg Q2H PRN Administration Breakthrough Pain Rated 7-10 or NPO Naloxone HCl 0.1 mg 07/17/24 20:26 Naloxone Hcl 0.4 Mg/Ml Vial IV PUSH Q2M PRN Opiate Reversal Ondansetron HCl 4 mg 07/17/24 20:26 Ondansetron Inj 4 Mg/2 Ml Vial IV PUSH Q4H PRN Nausea And Vomiting Oxycodone/Acetaminophen 1 tablet 07/17/24 20:26 07/20/24 21:47 Oxycodone/Acetaminophen (*Crx) 5-325 Mg Tablet PO 1 tablet Q4H PRN Administration Pain Rated 4-6 Pantoprazole Sodium 40 mg 07/18/24 09:00 07/25/24 08:37 Pantoprazole 40 Mg Tablet PO 40 mg QAM JAVIER Administration Polyethylene Glycol 17 gm 07/21/24 09:00 07/25/24 08:37 Polyethylene Glycol 3350 17 Gm Powd.Pack PO Not Given BID JAVIER Senna/Docusate Sodium 2 tab 07/21/24 21:00 07/24/24 21:00 Senna/Docusate Sodium Tablet PO Not Given HS JAVIER Sertraline HCl 100 mg 07/18/24 09:00 07/25/24 08:37 Sertraline Hcl 50 Mg Tablet PO 100 mg DAILY JAVIER Administration Tamsulosin HCl 0.4 mg 07/17/24 21:25 07/24/24 20:31 Tamsulosin Hcl 0.4 Mg Capsule PO 0.4 mg HS JAVIER Administration Radiology Results: ITS Impressions Abdomen X-Ray 07/21/24 10:48 Impression: 1: Nonspecific bowel gas pattern with large amount of retained gas throughout the small bowel and colon, likely ileus. 2: Small right pleural effusion. Cholangiogram 07/22/24 09:48 IMPRESSION: 1. Cholelithiasis in the body and neck of the gallbladder with patent cystic and common bile ducts. No extraluminal contrast extravasation. Retrograde Pyelogram 07/22/24 12:18 IMPRESSION: 1. Fluoroscopy utilized during left internal ureteral stent placement with loops formed in the left renal pelvis. See procedure note for further detail.. Venous Doppler Study 07/23/24 11:55 IMPRESSION: 1. No deep venous thrombosis in either lower limb. Abdomen/Pelvis CT 07/23/24 12:29 Impression: Increasing right upper quadrant pneumoperitoneum and fluid posterior to the liver, somewhat loculated in overall appearance. Correlate for loculated collection and iatrogenic air, or developing abscess, versus any possibility of bowel perforation, though the latter is felt to be less likely. Percutaneous catheter in the right upper quadrant with tip in the right upper quadrant, but not within the gallbladder. Probable contracted gallbladder with gallstones. Left ureteral stent with stable nonobstructing left lower pole renal stone. No hydronephrosis. No left ureteral stone at this time. [id number] right pleural effusion with right lower and middle lobe atelectatic change. Correlate clinically for pneumonia. Minimal left pleural effusion. Enlarged prostate gland. Labs Labs: Laboratory Results - last 24 hr 07/25/24 06:20 WBC 15.8 H RBC 3.95 L Hgb 11.4 L Hct 35.2 L MCV 89.1 MCH 28.9 MCHC 32.4 RDW 13.7 Plt Count 384 H MPV 9.6 Immature Gran % (Auto) 5.8 H Neut % (Auto) 79.0 H Lymph % (Auto) 7.3 L [place] % (Auto) 5.9 Eos % (Auto) 1.5 Baso % (Auto) 0.5 Lymph # (Auto) 1.15 [place] # (Auto) 0.9 H Eos # (Auto) 0.2 Baso # (Auto) 0.1 Abs Immat Gran (auto) 0.92 H Absolute Neuts (auto) 12.5 H Absolute Nucleated RBC 0.000 Nucleated RBC % 0.0 Sodium 132 L Potassium 2.8 L* Chloride 96 L Carbon Dioxide 27 Anion Gap 9 BUN 7 L Creatinine 0.69 L Estim Creat Clear Calc 157 Estimated GFR > 60 Glucose 85 Calcium 8.0 L Magnesium 1.6 Total Bilirubin 0.4 AST 22 ALT 14 Alkaline Phosphatase 97 Total Protein 5.7 L Albumin 2.7 L
--- NOTE | 2024-07-25 14:35 | P.DS_ITS ---
DS: Admitting Diagnosis Discharge Date 07/25/2024 Admitting Diagnosis Acute calculous cholecystitis DS: Summary Hospital Course Reason for hospitalization: 07/17/24: Patient was in the emergency room on July 04 with severe epigastric pain. Imaging showed evidence of acute cholecystitis with gallstones. He was feeling better with analgesics and was discharged with antibiotics and pain medication. Unfortunately continued to have episodes of pain. I saw him for his emergency room follow up visit in the office this morning. He had been having such severe episodes of pain that he had nearly gone back to the emergency room because all of times. These episodes were occurring nearly daily. He was scheduled to proceed with laparoscopic cholecystectomy this afternoon. Hospital Course: After being seen in the office on 07/17/2024 he was taken back to the OR to proceed with laparoscopic cholecystectomy. 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 Mainly, his gallbladder was so chronically inflamed with dense thick fibrotic adhesions adherent to the gallbladder throughout. Due to adhesions and significant oozing of blood, attempts at laparoscopic cholecystectomy were aborted, and cholecystostomy tube was placed as well as [place] drains. Started on ceftriaxone and metronidazole. Postop day 1 patient was tolerating clear with liquids without pain or nausea but still having some right upper quadrant pain and drain site pain treated with narcotics. Postop day 2 patient had white blood cell count up to 17,000 and creatinine up to 1.4. CT scan abdomen pelvis without contrast ordered. 1 L normal saline bolus ordered, as well as Dulcolax suppository and stool softeners. Hepatobiliary surgeon at [facility] contacted to discuss patient's subsequent need for cholecystectomy. They recommended outpatient follow-up in 6 weeks. Rocephin stopped and changed to Zosyn. Full liquid diet tolerated. Postop day 3 patient advanced to low-fat diet. Urology consult on 07/20/2024 for flank pain with a left proximal 8 mm ureteral stone shown on CT scan. On 08/18/2024 urologist performed cystoscopy, left retrograde, left stent placement 4.8 [place] contour. Urine cultures obtained as well as repeat CT abdomen pelvis. Cholecystostomy tube cholangiogram demonstrated cholelithiasis with patent cystic and common bile duct. No extraluminal contrast extravasation. TEETEE drains were removed. On 07/24 white blood cell count slowly trended up over the past few days. He continued on IV Levaquin and Flagyl. Completely benign abdominal exam. CT abdomen pelvis that was ordered by urology suggested increasing RUQ pneumoperitoneum and fluid posterior to the liver, which could be iatrogenic air/abscess/bowel perforation. CT scan was reviewed with the radiologist who compared to CT scan on 07/19, possibly decreased, but appeared to have likely migrated superiorly into the right upper quadrant. Pneumoperitoneum most likely postoperative findings rather than bowel perforation. Small amount of fluid posteriorly behind the liver, but not big enough to indicate percutaneous drainage and would be difficult to access. On 07/25/2024, patient feels well with no complaints and tolerating diet well. WBC count trending down, but chemistry significant for critical hypokalemia level at 2.8. He was given oral and IV boluses of potassium. Nursing instructed to teach patient how to empty cholecystostomy tube bag record output daily. Herman catheter bag switch to leg bag. Status at Discharge Functional status at discharge: independent ambulation Time Spent with Patient Time attestation: Total time spent providing and/or coordinating discharge services: Exam Const: General: cooperative, comfortable, no acute distress, well developed, alert, awake and obese; No confusion Nutritional Appearance: obese Orientation/consciousness: patient oriented x3 and No confusion GI: Inspection: no abdominal wall ecchymosis, non-distended, incision (Healing well, TEETEE drains with serous fluid, decreasing output), obesity, scar and other (Cholecystostomy tube with dark green bile output that is minimal.) Auscultation: normal bowel sounds Other: Abdominal port site incisions are healing well with glue intact, no erythema or drainage. Two wounds where the TEETEE drains were removed two days ago had a dry/clean dressing in place, no erythema or purulent drainage. Cholecystostomy tube to gravity with minimal output in bag, skin around the drain appears healthy with no erythema or drainage. Skin: General skin exam: normal color Neuro: General: patient oriented x3 and No confusion Extrem: General: edema bilateral (lower extremity edema, reportedly improved) Psych: Mental Status: mental status grossly normal DS: Data Data Completed and Pending Labs on day of discharge: Labs from last 24 hours 07/25/24 06:20 WBC 15.8 H RBC 3.95 L Hgb 11.4 L Hct 35.2 L MCV 89.1 MCH 28.9 MCHC 32.4 RDW 13.7 Plt Count 384 H MPV 9.6 Immature Gran % (Auto) 5.8 H Neut % (Auto) 79.0 H Lymph % (Auto) 7.3 L [place] % (Auto) 5.9 Eos % (Auto) 1.5 Baso % (Auto) 0.5 Lymph # (Auto) 1.15 [place] # (Auto) 0.9 H Eos # (Auto) 0.2 Baso # (Auto) 0.1 Abs Immat Gran (auto) 0.92 H Absolute Neuts (auto) 12.5 H Absolute Nucleated RBC 0.000 Nucleated RBC % 0.0 Sodium 132 L Potassium 2.8 L* Chloride 96 L Carbon Dioxide 27 Anion Gap 9 BUN 7 L Creatinine 0.69 L Estim Creat Clear Calc 157 Estimated GFR > 60 Glucose 85 Calcium 8.0 L Magnesium 1.6 Total Bilirubin 0.4 AST 22 ALT 14 Alkaline Phosphatase 97 Total Protein 5.7 L Albumin 2.7 L Discharge Plan Discharge Attending physician on discharge: Trevor Hernandez Consulting providers: Belinda Torre; Jong Rodriguez Discharging Clinician: Sukumar Seay Patient Disposition: Home Activity: other - see discharge instructions Diet: low fat Wound Care Instructions: other - see discharge instructions Discharge Instructions: Follow up with Dr. Hernandez in office in 1 week. Will eventually need to see hepatobiliary surgeon at [facility] in 5-6 weeks for cholecystectomy. If any problems with cholecystostomy tube call office. Empty cholecystostomy tube and bag daily and record output. Sponge bath until instructed otherwise by Dr. Hernandez. Patient Instructions: Antibiotic Form, Cholecystitis (GEN) Patient Language: Gabonese Stand Alone Forms: General Discharge Information Follow-up/Referrals: Kory Fernandez MD [Physician] - Call for Appointment (F/u 2 weeks) Trevor Hernandez MD [Physician] - Call for Appointment (Follow up in [address] Hernandez. S/p attempted lap jeff, jeff tube placement 07/17) Discharge Medications: New levofloxacin 750 mg tablet 750 mg PO DAILY Qty: 14 1RF metronidazole 500 mg tablet 500 mg PO BID Qty: 14 1RF Continued sertraline 100 mg tablet 100 mg PO DAILY losartan 25 mg tablet 25 mg PO DAILY tamsulosin 0.4 mg capsule 0.4 mg PO DAILY Patient Comments: Says takes at HS omeprazole 40 mg Capsule,Delayed Release(Dr/Ec) 40 mg PO DAILY ferrous sulfate 27 mg iron Tablet 27 mg PO DAILY Rx Instructions: OTC - patient self prescribed bupropion HCl 150 mg tablet extended release 24 hr 150 mg PO DAILY ondansetron 4 mg tablet,disintegrating 4 mg PO Q8H PRN (Reason: nausea and vomiting) Qty: 14 0RF Other Ambulatory Orders: Potassium (Routine) Timeframe: 20240728 Location: Determined by Patient Ordered By: Kat Katz Magnesium (Routine) Timeframe: 20240728 Location: Determined by Patient Ordered By: Kat Katz Date of admission: 07/17/24 20:26 Primary Care Provider: Gabonese,Junior Banerjee Admitting Provider: Trevor Hernandez Attending physician on admission: Trevor Hernandez Condition: Improved
[2024-07-25] MEDS: levoFLOXacin 750 MG/D5W 150 ML 750 MG/150 ML BAG 100 MG IVPB (15:19)
--- NOTE | 2024-07-25 15:28 | P.PNIM_ITS ---
Progress Note: A&P Assessment and Plan (1) Acute calculous cholecystitis: Code(s): K80.00 - Calculus of gallbladder with acute cholecystitis without obstruction Status: Acute Assessment and Plan: Postoperative day 1 status post adhesiolysis and cholecystostomy tube and Ryland drain insertion. Wound care, pain control, and DVT prophylaxis deferred to primary service. s/p ceftriaxone and metronidazole, now on ZOsyn failed cholecystectomy (2) Hypertension: Qualifiers: Hypertension type: unspecified Qualified Code(s): I10 - Essential (primary) hypertension Code(s): I10 - Essential (primary) hypertension Status: Chronic Assessment and Plan: Blood pressures were reviewed and they have been stable. Continue losartan 25 mg and monitor daily. (3) Benign prostatic hyperplasia: Code(s): N40.0 - Benign prostatic hyperplasia without lower urinary tract symptoms Status: Acute Assessment and Plan: Bladder scan p.r.n. Continue tamsulosin 0.4 mg daily. (4) Gastroesophageal reflux disease: Code(s): K21.9 - Gastro-esophageal reflux disease without esophagitis Status: Acute Assessment and Plan: No acute issues, continue PPI. (5) Depression with anxiety: Code(s): F41.8 - Other specified anxiety disorders Status: Acute Assessment and Plan: No acute issues, continue sertraline and bupropion. (6) Obstructive sleep apnea: Code(s): G47.33 - Obstructive sleep apnea (adult) (pediatric) Status: Chronic Assessment and Plan: CPAP will be provided for the patient to use while hospitalized if in fact he uses it at home. Plan patient with abdominal pain s/p attempted laparoscopic cholecystectomy, laparoscopic placement of cholecystostomy tube POD #8, was seen by urologist on 07/22 and had cystoscopy, left retrograde, left stent placement 4.8 [place] contour, patient seen by his surgeon, and TEETEE drains was removed today recommended to conitnue IV abx, on 06/22 patient c/o of b/l extremities edma, calf were swollen to further evaluate had dopplor to r/o DVT, which was negative for DVT, started patient on furosemide and diuresed the patient and monitor. and patient lower extremities not as swollen, patient white counts are steadily rising and seen by surgery service does not suspect any intraabdominal infection and recommended to continue IV abx, Today surgery has decided to discharge the patient on oral levofloxacin for 14 days, and will follow up with the surgery. Erythema Patient has erythema on extremities no pruritus Questionable medication allergies Will recommend switching Zosyn to another antibiotics (Levaquin and Meropenem) monitor DVT prophylaxis on Sq Lovenox I appreciate the opportunity to participate in the care of this patient Subjective Date/time seen: 07/25/24 15:28 Interval history: Comfortable at bedside However complained redness in extremities patient with abdominal pain s/p attempted laparoscopic cholecystectomy, laparoscopic placement of cholecystostomy tube POD #8, was seen by urologist on 07/22 and had cystoscopy, left retrograde, left stent placement 4.8 [place] contour, patient seen by his surgeon, and TEETEE drains was removed today recommended to conitnue IV abx, on 06/22 patient c/o of b/l extremities edma, calf were swollen to further evaluate had dopplor to r/o DVT, which was negative for DVT, started patient on furosemide and diuresed the patient and monitor. and patient lower extremities not as swollen, patient white counts are steadily rising and seen by surgery service does not suspect any intraabdominal infection and recommended to continue IV abx, Today surgery has decided to discharge the patient on oral levofloxacin for 14 days, and will follow up with the surgery. Review of Systems Review of Systems: 12 systems were reviewed and are negativ e except for as per HPI. Exam Narrative: Morbidly obese Patient is comfortable, NAD HEENT: eyes are clear and none icteric LUNGS:CTA HEART: RR S1S2 ABD: BS+, Soft and nontender Lower extremities: no edema SKIN: nonjaundiced Neuro: grossly intact. Objective Data Vital Signs Vital Signs: Vital Signs - 24 hr 07/24/24 16:00 07/24/24 17:00 07/24/24 20:00 Temperature 36.8 C Pulse Rate 91 82 Respiratory Rate 18 Blood Pressure 148/92 H Pulse Oximetry 97 Oxygen Delivery Room Air 07/24/24 20:00 07/24/24 21:00 07/25/24 00:00 Temperature 36.5 C Pulse Rate 93 94 91 Respiratory Rate 24 H Blood Pressure 139/83 Pulse Oximetry 92 Oxygen Delivery 07/25/24 01:00 07/25/24 04:00 07/25/24 05:00 Temperature 36.8 C 36.6 C Pulse Rate 88 83 87 Respiratory Rate 16 20 Blood Pressure 118/80 135/79 Pulse Oximetry 95 94 Oxygen Delivery 07/25/24 07:59 07/25/24 08:00 07/25/24 08:37 Temperature 37.2 C Pulse Rate 87 85 Respiratory Rate 16 Blood Pressure 138/89 Pulse Oximetry 95 Oxygen Delivery Room Air 07/25/24 11:00 07/25/24 12:00 Temperature 37.0 C Pulse Rate 96 90 Respiratory Rate 16 Blood Pressure 133/90 Pulse Oximetry 94 Oxygen Delivery Intake/Output Intake/Output: Intake & Output 07/22/24 07/23/24 07/24/24 07/25/24 23:59 23:59 23:59 23:59 Intake Total 1940 1700 1220 1280 Output Total 123 1056 Balance 9030 639 4613 1280 Meds/Results Medications: Active Medications Generic Name Dose Route Start Last Admin Trade Name Freq PRN Reason Stop Dose Admin Acetaminophen 500 mg 07/17/24 20:26 07/22/24 20:39 Acetaminophen 500 Mg Tablet PO 500 mg Q6H PRN Administration Pain Rated 1-3 Bupropion HCl 150 mg 07/20/24 09:00 07/25/24 08:37 Bupropion Hcl Xl (24 Hr) 150 Mg Tabcr PO 150 mg QAM JAVIER Administration Diphenhydramine HCl 25 mg 07/21/24 15:28 Diphenhydramine Hcl Inj 50 Mg/Ml Vial IV PUSH Q4H PRN Itching Enoxaparin Sodium 40 mg 07/18/24 09:00 07/25/24 08:37 Enoxaparin 40 Mg/0.4 Ml Syringe SUB-Q 40 mg DAILY JAVIER Administration Ibuprofen 800 mg in 200 mls @ 400 mls/hr 07/17/24 20:26 Caldolor 800 Mg/200 Ml IVPB Q6H PRN Breakthrough Pain Rated 1-3 or NPO Metronidazole 500 mg in 100 mls @ 100 mls/hr 07/17/24 22:00 07/25/24 15:20 Flagyl 500 Mg/Iso Soln 100 Ml IVPB 100 mls/hr Q8HR JAVIER Administration Levofloxacin/Dextrose 750 mg in 150 mls @ 100 mls/hr 07/21/24 16:00 07/25/24 15:19 Levaquin 750 Mg/D5w 150 Ml IVPB 100 mls/hr Q24H JAVIER Administration Losartan Potassium 25 mg 07/18/24 09:00 07/25/24 08:37 Losartan Potassium 25 Mg Tablet PO 25 mg DAILY JAVIER Administration Morphine Sulfate 2 mg 07/17/24 20:26 Morphine Sulfate (*Crx) 2 Mg/Ml Inj IV PUSH Q2H PRN Breakthrough Pain Rated 4-6 or NPO Morphine Sulfate 4 mg 07/17/24 20:26 07/19/24 20:07 Morphine Sulfate (*Crx) 4 Mg/Ml Inj IV PUSH 4 mg Q2H PRN Administration Breakthrough Pain Rated 7-10 or NPO Naloxone HCl 0.1 mg 07/17/24 20:26 Naloxone Hcl 0.4 Mg/Ml Vial IV PUSH Q2M PRN Opiate Reversal Ondansetron HCl 4 mg 07/17/24 20:26 Ondansetron Inj 4 Mg/2 Ml Vial IV PUSH Q4H PRN Nausea And Vomiting Oxycodone/Acetaminophen 1 tablet 07/17/24 20:26 07/20/24 21:47 Oxycodone/Acetaminophen (*Crx) 5-325 Mg Tablet PO 1 tablet Q4H PRN Administration Pain Rated 4-6 Pantoprazole Sodium 40 mg 07/18/24 09:00 07/25/24 08:37 Pantoprazole 40 Mg Tablet PO 40 mg QAM JAVIER Administration Polyethylene Glycol 17 gm 07/21/24 09:00 07/25/24 08:37 Polyethylene Glycol 3350 17 Gm Powd.Pack PO Not Given BID JAVIER Senna/Docusate Sodium 2 tab 07/21/24 21:00 07/24/24 21:00 Senna/Docusate Sodium Tablet PO Not Given HS JAVIER Sertraline HCl 100 mg 07/18/24 09:00 07/25/24 08:37 Sertraline Hcl 50 Mg Tablet PO 100 mg DAILY JAVIER Administration Tamsulosin HCl 0.4 mg 07/17/24 21:25 07/24/24 20:31 Tamsulosin Hcl 0.4 Mg Capsule PO 0.4 mg HS JAVIER Administration Radiology Results: ITS Impressions Abdomen X-Ray 07/21/24 10:48 Impression: 1: Nonspecific bowel gas pattern with large amount of retained gas throughout the small bowel and colon, likely ileus. 2: Small right pleural effusion. Cholangiogram 07/22/24 09:48 IMPRESSION: 1. Cholelithiasis in the body and neck of the gallbladder with patent cystic and common bile ducts. No extraluminal contrast extravasation. Retrograde Pyelogram 07/22/24 12:18 IMPRESSION: 1. Fluoroscopy utilized during left internal ureteral stent placement with loops formed in the left renal pelvis. See procedure note for further detail.. Venous Doppler Study 07/23/24 11:55 IMPRESSION: 1. No deep venous thrombosis in either lower limb. Abdomen/Pelvis CT 07/23/24 12:29 Impression: Increasing right upper quadrant pneumoperitoneum and fluid posterior to the liver, somewhat loculated in overall appearance. Correlate for loculated collection and iatrogenic air, or developing abscess, versus any possibility of bowel perforation, though the latter is felt to be less likely. Percutaneous catheter in the right upper quadrant with tip in the right upper quadrant, but not within the gallbladder. Probable contracted gallbladder with gallstones. Left ureteral stent with stable nonobstructing left lower pole renal stone. No hydronephrosis. No left ureteral stone at this time. [id number] right pleural effusion with right lower and middle lobe atelec tatic change. Correlate clinically for pneumonia. Minimal left pleural effusion. Enlarged prostate gland. Labs Labs: Laboratory Results - last 24 hr 07/25/24 06:20 WBC 15.8 H RBC 3.95 L Hgb 11.4 L Hct 35.2 L MCV 89.1 MCH 28.9 MCHC 32.4 RDW 13.7 Plt Count 384 H MPV 9.6 Immature Gran % (Auto) 5.8 H Neut % (Auto) 79.0 H Lymph % (Auto) 7.3 L [place] % (Auto) 5.9 Eos % (Auto) 1.5 Baso % (Auto) 0.5 Lymph # (Auto) 1.15 [place] # (Auto) 0.9 H Eos # (Auto) 0.2 Baso # (Auto) 0.1 Abs Immat Gran (auto) 0.92 H Absolute Neuts (auto) 12.5 H Absolute Nucleated RBC 0.000 Nucleated RBC % 0.0 Sodium 132 L Potassium 2.8 L* Chloride 96 L Carbon Dioxide 27 Anion Gap 9 BUN 7 L Creatinine 0.69 L Estim Creat Clear Calc 157 Estimated GFR > 60 Glucose 85 Calcium 8.0 L Magnesium 1.6 Total Bilirubin 0.4 AST 22 ALT 14 Alkaline Phosphatase 97 Total Protein 5.7 L Albumin 2.7 L
[2024-07-25 16:06] LABS: Magnesium 1.9 mg/dL (1.6-2.3); Potassium 3.2 mmol/L (3.4-5.0)
[2024-07-25] MEDS: POTASSIUM CHLORIDE 20 MEQ ER TABLET 40 MEQ PO (17:19)
--- NOTE | 2024-08-07 13:38 | W.PM.PROC2 ---
Procedure Note - Detailed Date of Procedure 08/07/24 Pre-op Diagnosis severe acute cholecystitis, cholelithiasis Post-op Diagnosis Same Procedure Performed diagnostic laparoscopy, extensive lysis of adhesions Surgeon Devi Gilbert MD, Lizandro Hernandez MD Anesthesia General and Local Indications 64-year-old male that initially presented to the emergency department with severe epigastric abdominal pain. Workup, including imaging, significant for acute cholecystitis, cholelithiasis. The patient was discharged home from the emergency department with follow-up with Dr. Hernandez. The patient was seen by Dr. Hernandez and urgently added on for cholecystectomy. Findings Severe acute cholecystitis with dense, fibrinous adhesions, adhesions to the liver, stomach, and colon Description of Procedure The patient was taken the operating room and placed in the supine position. After adequate induction of general anesthesia, the patient was prepped and draped in the normal sterile fashion. A time-out was then done to verify the patient's identity, as well as the procedure being performed. A 5 mm incision was made in the infraumbilical region. I then placed a Veress needle into the peritoneal cavity and CO2 gas was then insufflated. After adequate pneumoperitoneum was achieved, the Veress needle was removed and a 5 mm Optiview trocar was placed under visualization. Once confirmed in proper position, the trocar was removed and the laparoscopic was placed into the port site. Under direct visualization, I placed a further 12 mm subxiphoid port, as well as 2 additional 5 mm ports in the right abdomen. At this point, I noted a large inflammatory mass in the right upper quadrant. The hepatic flexure of the colon was noted to be distended and adhesed to this area. There was also noted to be dense adhesions of the liver and omentum to the anterior abdominal wall. The stomach was also noted to be adhesed to this area. Using very careful and tedious dissection, I 1st took down the adhesions to the anterior abdominal wall. Again this was very tedious and noted to be somewhat bloody taking down these adhesions. I then was able to separate the colon off of this inflammatory mass. This again required both blunt and sharp dissection with the Bovie cautery and [place]. The stomach was noted to be densely adhered and it was very difficult to gain a plane between what looked to be the gallbladder and the stomach. The stomach was very carefully dissected off and upon examination after dissection looked to be viable an injury free. The gallbladder was densely adhered and had a very thick fibrotic wall. Just doing the previous adhesiolysis took approximately 90 minutes. By this time, Dr. Hernandez had finished his previous case and joined me in the operation. He took over as the primary surgeon and please review his operative report for further details. Estimated Blood Loss 50 Condition Stable Disposition No change [facility] Billing Surgery - Charge Forward: Surgery Billing
== END 2024-07-25 17:45 | disposition home or self-care (01) | DRG 409 ==
LOC: ANH3MEDSUR 20:47
PROVIDERS: Family Medicine; Internal Medicine; Nurse Practitioner Family; Surgery; Urology; Admitting Provider Surgery; PCP Internal Medicine
PROC: 0FT44ZZ Resection of Gallbladder, Percutaneous Endoscopic Approach (ICD-10-PCS; CPT 47562; principal; 2024-07-17 15:00)
PROC: 0T778DZ Dilation of Left Ureter with Intraluminal Device, Via Natural or Artificial Opening Endoscopic (ICD-10-PCS; CPT 52352; principal; 2024-07-22 11:15)
DX: K80.12 Calculus of gallbladder with acute and chronic cholecystitis without obstruction (principal); N13.2 Hydronephrosis with renal and ureteral calculous obstruction; Z68.41 Body mass index [BMI] 40.0-44.9, adult; K82.8 Other specified diseases of gallbladder; Z98.84 Bariatric surgery status; D50.9 Iron deficiency anemia, unspecified; E87.6 Hypokalemia; E66.01 Morbid (severe) obesity due to excess calories; F41.8 Other specified anxiety disorders; G47.33 Obstructive sleep apnea (adult) (pediatric); I10 Essential (primary) hypertension; K21.9 Gastro-esophageal reflux disease without esophagitis; N40.0 Benign prostatic hyperplasia without lower urinary tract symptoms
CPT/HCPCS: 36415; 47531; 74018; 74176; 74420; 80048; 80053; 80076; 81001; 82150; 83605; 83690; 83735; 84132; 85025; 85027; 85610; 86140; 87040; 87086; 93005; 93970; A9270; C1758; C1769; C1894; C2617; J0690; J0696; J1100; J1650; J1836; J1885; J1938; J1956; J2003; J2250; J2270; J2405; J2543; J2704; J3010; J3475; J3480; J7030; J7040; J7120; Q9966